=== PATIENT | male | born 1975 | race Caucasian/White ===

== ENCOUNTER → 2018-01-12 19:53 | Outpatient (CLI) | payer OTHER, SELFPAY | PROVIDERS: Visit Provider Student in an Organized Health Care Education/Training Program | DX: G47.10 Hypersomnia, unspecified (principal); R06.83 Snoring; R06.00 Dyspnea, unspecified; R53.83 Other fatigue | CPT/HCPCS: 95810 ==

== ENCOUNTER 2018-03-25 20:57 | Emergency (ER) | payer OTHER, SELFPAY ==
[2018-03-25 20:58] VITALS: BP 156/84; PULSE 81; RESP 20; TEMP 36.4; O2SAT 82; BMI 33.8
--- NOTE | 2018-03-25 21:30 | CM.ED ---
SOCIAL WORK NOTE PT PRESENTS TO ED WITH SUICIDAL IDEATION WITH PLAN TO DRIVE CAR INTO ONCOMING TRAFFIC. DR. BELTRE MET WITH PT. PER DR. BELTRE PT WILL NEED CRISIS EVALUATION. 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
--- NOTE | 2018-03-25 21:33 | ED.DCSUM_ITS ---
- ER Visit Summary Date of Service: 03/25/18 Chief Complaint: Suicidal thoughts with plan History of Present Illness: The patient is a 42 M presents to the emergency department with suicidal ideation. The patient has a history of PTSD. He is currently in the intensive outpatient program through [facility], [place], operated by [facility]. He states that he has been having trouble at work because of his stress disorder. He has been in the intensive outpatient program for 2 weeks now. He is on Prozac, Seroquel, and Valium. He states prior to leaving, he did have a demotion at work. Today was the first day that he got his diminished paycheck. He states it was significantly stressful. He has to care for 6 children and his . He states that this along with all of his life stressors got him to the point where he wants to kill himself. He states he wants to drive his car into oncoming traffic. He is never been hospitalized for suicidality in the past. Physical Examination: Vital signs reviewed General: Well-nourished, well-developed Head: Normocephalic, atraumatic Eyes: Pupils equal and reactive, extraocular muscles intact Neck, supple, no lymphadenopathy Heart: Regular rate and rhythm Respiratory: No distress, clear bilaterally Abdomen: Soft, nontender, nondistended, no peritoneal signs Back: Nontender Extremities: Nontender, no edema, no cords Skin: Normal color no rash Neuro: Alert and oriented, no focal or lateralizing deficits Test Results: [] Emergency Department Course and Treatment: The patient presents with increased suicidal thoughts despite intensive outpatient therapy. He does have plan. Screening labs are obtained and are unremarkable. At this time, the patient is medically cleared for psychiatric evaluation. Treatment Plan: [] Disposition: Pending Impression: Suicidal ideation with plan This note was generated with [employer] dictation software. It may contain incorrect words, spelling, and punctuation that were not noted in review of the chart prior to signing ED Disposition - Plan for ED Patient: Referrals: Mike Harvey DO [Primary Care Provider] -
[2018-03-25] MEDS: LORazepam 1 MG Tablet 2 MG PO (21:36)
--- NOTE | 2018-03-25 21:42 | ED.RN ---
pt reports he already took nighttime medications.
[2018-03-25 21:51] LABS: Absolute Neutrophil Count 4.9 X10^3/uL (2.0-7.7); Basophil# 0.06 X10^3/uL; Basophil% 0.8 % (0-1); Eosinophil# 0.19 X10^3/uL; Eosinophils% 2.4 % (0-5); Hematocrit 50.5 % (40-54); Hemoglobin 16.4 g/dl (13.0-16.5); Lymphocyte % 28.8 % (19-41); Mean Corp Hgb Conc 32.5 g/gl (32-36); Mean Corpuscular Hgb 29.7 pg (27.0-32.0); Mean Corpuscular Volume 91.5 fL (80-94); Monocyte# 0.58 X10^3/uL; Monocyte% 7.3 % (0-10); Neutrophil # 4.85 X10^3/uL (2.7-7.7); Neutrophil % 60.6 % (47-70); Platelet Count 216 K/mm3 (150-450); RBC Distribution Width CV 13.4 % (11.6-14.6); RBC Distribution Width SD 44.3 fl (35.1-43.9); Red Blood Count 5.52 M/mm3 (4.6-6.2)
[2018-03-25 21:52] LABS: POSITIVE COUNT NO; POSITIVE DIFFERENTIAL NO; POSITIVE MORPHOLOGY NO
[2018-03-25 22:07] LABS: Anion Gap 8 (5-15); BUN 19 mg/dL (7-18); BUN/Creat Ratio 11.3 RATIO (10-20); Calcium,Total 8.7 mg/dL (8.5-10.1); Chloride 105 mmol/L (98-107); Creatinine, Serum 1.68 mg/dL (0.70-1.30); EST Glomerular Filtration Rate 48 mL/min (>60); Est Glom Filt Rate - Afr Amer 58 mL/min (>60); Estimated Creatinine Clearance 67.28 ml/min; Glucose 97 mg/dL (74-106); Sodium Level 140 mmol/L (136-145)
[2018-03-25 22:20] LABS: Alcohol, Blood (Medical)-Serum < 3.0 mg/dL
[2018-03-25 22:38] VITALS: PULSE 74; RESP 16; O2SAT 94
[2018-03-25 22:41] LABS: Amphetamine Urine VISTA NEGATIVE (<1000 ng/mL); Barbiturate Urine VISTA NEGATIVE (< 200 ng/mL); Benzodiazepine Urine VISTA POSITIVE (< 200 ng/mL); Cocaine Urine VISTA NEGATIVE (< 300 ng/mL); Ecstacy Urine VISTA NEGATIVE (< 500 ng/mL); Methadone Urine VISTA NEGATIVE (< 300 ng/mL); PCP Urine VISTA NEGATIVE (< 25 ng/mL); THC Urine VISTA NEGATIVE (< 50 ng/mL); Vista UDS pH Range 6
[2018-03-25 23:08] VITALS: RESP 12
[2018-03-26] VITALS (8 sets, daily range): BP systolic 106–126; BP diastolic 56–73; PULSE 64–102; RESP 13–16; O2SAT 94–96
--- NOTE | 2018-03-26 01:49 | EKG12_ITS ---
Test Reason : Blood Pressure : / mmHG Vent. Rate : 062 BPM Atrial Rate : 062 BPM P-R Int : 144 ms QRS Dur : 094 ms QT Int : 412 ms P-R-T Axes : 040 004 017 degrees QTc Int : 418 ms Normal sinus rhythm Normal ECG Confirmed by HONG VERDIN, NANDO ([id number]), supervising film or videotape editor FRANCISCA LAINEZ ([id number] on 03/29/2018 8:53:01 AM Referred By: REINA Confirmed By:NANDO PITTS MD
[2018-03-26 02:13] LABS: AST(SGOT) 28 U/L (15-37); Alanine Aminotransfer ALT/SGPT 33 U/L (16-61); Albumin, Serum 4.1 g/dL (3.2-5.0); Alkaline Phosphatase 84 U/L (45-117); Globulin 3.2 g/dL (2.2-4.2); Protein, Total 7.3 g/dL (6.4-8.2)
[2018-03-26 04:02] LABS: Bacteria 0 SEEN /hpf (None Seen); Red Blood Cells-Urine 0 SEEN /hpf (0-5); Squamous Epithelial Cells - UA 0 SEEN /hpf (0-5); White Blood Cells 0 SEEN /hpf (0-5)
[2018-03-26 04:11] LABS: Color, Urine Yellow (Yellow); Glucose, Dipstick Normal (Normal); Ketone-Dipstick Negative (Negative); Leukocyte Esterase-Dipstick Negative /ul (Negative); Nitrite-Dipstick Negative (Negative); Occult Blood-Urine Negative /ul (Negative); Protein-Dipstick Negative (Negative); Urine Bilirubin Dipstick Negative (Negative); Urine Clarity Clear (Clear); Urine Urobilinogen Normal (Normal)
[2018-03-26 04:18] LABS: Mucous, Urine 1+ /hpf (<or=2+)
[2018-03-26] MEDS: FLUoxetine 20 MG Capsule 40 MG PO (09:56)
--- NOTE | 2018-03-26 10:23 | NURSING ---
CALLED [facility] FOR [facility]SPORT
--- NOTE | 2018-03-26 10:35 | NURSING ---
CALLED [facility], ETA IS 20 MIN CANCELLED PICHARDO
== END 2018-03-26 11:10 | disposition short-term general hospital (02) ==
LOC: ED 21:41
PROVIDERS: Emergency Medicine; Emergency Provider Emergency Medicine; Family Provider Student in an Organized Health Care Education/Training Program; PCP Student in an Organized Health Care Education/Training Program
DX: R45.851 Suicidal ideations (principal); F31.9 Bipolar disorder, unspecified; F43.10 Post-traumatic stress disorder, unspecified
CPT/HCPCS: 80048; 80076; 80307; 80320; 81001; 85025; 93005; 99284; G0480

== ENCOUNTER 2019-04-03 19:31 | Emergency (ER) | payer OTHER, SELFPAY ==
[2019-04-03 19:32] VITALS: BP 155/106; PULSE 95; RESP 16; TEMP 36.7; O2SAT 98; BMI 34.0
--- NOTE | 2019-04-03 20:05 | EKG12_ITS ---
Test Reason : CP Blood Pressure : / mmHG Vent. Rate : 091 BPM Atrial Rate : 091 BPM P-R Int : 136 ms QRS Dur : 088 ms QT Int : 344 ms P-R-T Axes : 053 014 040 degrees QTc Int : 423 ms Normal sinus rhythm Normal ECG Confirmed by KIM VERDIN, CELINE ([id number]), general expeditor ELIJAH RICHEY ([id number]) on 04/05/2019 1:53:21 PM Referred By: MOHAN Confirmed By:CELINE ALVAREZ MD
--- NOTE | 2019-04-03 20:10 | RAD_ITS ---
STUDY: X-RAY CHEST REASON FOR EXAM: Male, 43 years old. numbness in arms, racing heart, sweaty, short of breath TECHNIQUE: Numbness in arms COMPARISON: None. FINDINGS: The lungs are clear and expanded. There is no demonstrated pleural abnormality. Normal size heart. Normal mediastinum and raúl. Normal visualized pulmonary arteries. Normal visualized aortic arch and descending thoracic aorta. Normal visualized thoracic spine. Normal visualized ribs, clavicles, and shoulders. There is no demonstrated abnormality of the visualized soft tissue structures of the upper abdomen. RAD/Chest 1 View (Portable) IMPRESSION: Normal x-ray examination of the chest. Electronically Signed: Lobo Alvarado, at 20:34 EST Tel , Service support ,
[2019-04-03 20:22] VITALS: O2SAT 97
[2019-04-03] MEDS: Aspirin 81 MG TAB.CHEW 324 MG PO (20:38)
[2019-04-03 20:49] LABS: Absolute Lymphocyte Count 2.14 X10^3/uL (0.83-4.51); Absolute Neutrophil Count 3.6 X10^3/uL (2.0-7.7); Basophil# 0.09 X10^3/uL; Basophil% 1.4 % (0-1); Eosinophil# 0.15 X10^3/uL; Eosinophils% 2.3 % (0-5); Hematocrit 47.2 % (40-54); Hemoglobin 15.6 g/dL (13.0-16.5); Lymphocyte # 2.14 X10^3/ul (4.0); Lymphocyte % 32.5 % (19-41); Mean Corp Hgb Conc 33.1 g/dL (32-36); Mean Corpuscular Hgb 29.2 pg (27.0-32.0); Mean Corpuscular Volume 88.4 fL (80-94); Mean Platelet Vol. 10.4 fl (6.2-12.0); Monocyte# 0.62 X10^3/uL; Monocyte% 9.4 % (0-10); NRBC Flagged by Analyzer 0 % (0-5); Neutrophil # 3.56 X10^3/uL (2.7-7.7); Neutrophil % 54.1 % (47-70); Platelet Count 250 K/mm3 (150-450); RBC Distribution Width SD 41.7 fl (35.1-43.9); Red Blood Count 5.34 M/mm3 (4.6-6.2); White Blood Count 6.6 K/mm3 (4.4-11.0)
[2019-04-03 21:05] LABS: Anion Gap 7 (5-15); BUN 14 mg/dL (7-18); BUN/Creat Ratio 10.8 RATIO (10-20); Calcium,Total 9.4 mg/dL (8.5-10.1); Chloride 107 mmol/L (98-107); EST Glomerular Filtration Rate 64 mL/min (>60); Est Glom Filt Rate - Afr Amer 78 mL/min (>60); Estimated Creatinine Clearance 86.06 ml/min; Glucose 100 mg/dL (74-106); Potassium 3.8 mmol/L (3.5-5.1); Sodium Level 141 mmol/L (136-145)
[2019-04-03 22:08] VITALS: BP 125/79; PULSE 77; RESP 20; O2SAT 94
--- NOTE | 2019-04-04 00:10 | ED.DCSUM_ITS ---
- ER Visit Summary Date of Service: 04/04/19 Chief Complaint: Chest pain History of Present Illness: The patient is a 43 M who presents with chest pain that began today. Patient states the pain began proximately 6 hours prior to arrival. Patient states the pain waxes and wanes. Patient states the pain is somewhat sharp in his right upper arm. Patient states the pain then goes into his left upper arm. Patient states he does have some aching and tightness in his chest with this. Patient states this does come on with exertion and is improved with rest. Patient admits to nausea but denies any vomiting. Patient denies any cough or fevers. Patient does admit to some palpitations with this and some shortness of breath. Physical Examination: Vital signs are stable. Patient is afebrile. Patient is in no acute distress. Oral mucosa is pink and moist. Neck is supple. Trachea is midline. There is no JVD noted. Heart was regular rate and rhythm. Lungs are clear and equal bilaterally. Abdomen is soft. Bowel sounds are normal. There is no tenderness. There is no rebound or guarding noted. Skin is warm dry. Cranial nerves II through XII are intact. There are no focal motor or sensory deficits noted. Extremities are intact. There is no calf tenderness or edema. Test Results: EKG shows normal sinus rhythm with a rate of 91. There are no acute ST or T wave changes. This was unchanged compared to previous EKG dated 03/26/2018. CBC, basic metabolic profile, and troponin were obtained were all within normal limits. Portable chest x-ray was obtained. There is no acute cardiopulmonary process. This was interpreted by the radiologist and reviewed by myself. Emergency Department Course and Treatment: Patient was given aspirin. Patient was pain-free on my examination. Patient has a HEART score of 2 and a DENISHA risk score of 1. Patient was advised that this is low risk for acute cardiac event. Patient is agreeable to stay for a delta troponin. This was obtained and was normal. Patient was advised that his risk for acute cardiac event is less than 1%. Patient was instructed to follow-up with his primary care physician in 5 to 7 days for further evaluation. Patient understands and is agreeable with the plan. All questions were answered. Disposition: Discharge home Impression: Chest pain This note was generated with [employer] software. It may contain incorrect words, spelling, and punctuation that were not noted in review of the chart prior to signing ED Disposition - Plan for ED Patient: Disposition: Home or Assisted Living Diagnosis: Chest pain of uncertain etiology Instructions: CHEST PAIN, Uncertain Cause Referrals: Mike Harvey DO [Primary Care Provider] - 5-7 Days
[2019-04-04 00:56] VITALS: BP 128/82; PULSE 82; RESP 19; O2SAT 94
== END 2019-04-04 00:56 | disposition home or self-care (01) ==
PROVIDERS: Emergency Provider Emergency Medicine; PCP Student in an Organized Health Care Education/Training Program
DX: R07.9 Chest pain, unspecified (principal); F43.10 Post-traumatic stress disorder, unspecified; Z79.899 Other long term (current) drug therapy
CPT/HCPCS: 36415; 71045; 80048; 84484; 85025; 93005; 99284; A4216

== ENCOUNTER → 2020-06-12 14:36 | Outpatient (CLI) | payer OTHER, SELFPAY ==
--- NOTE | 2020-06-12 14:39 | US_ITS ---
STUDY: THYROID ULTRASOUND REASON FOR EXAM: Male, 44 years old. GOITER TECHNIQUE: Ultrasound evaluation of the thyroid was performed with real-time and static barbosa-scale imaging. COMPARISON: None. FINDINGS: RIGHT LOBE: The right lobe of the thyroid gland measures 5.4 x 1.8 x 2.1 cm. There is a heterogeneous echotexture. Nodule 1:14 x 12 x 11 mm solid isoechoic wider than tall ill-defined marginated nodule with no echogenic foci (TR 3) in the posterior right lobe consistent with an adenoma. LEFT LOBE: The left lobe of the thyroid gland measures 5.7 x 1.8 x 1.1 cm. There is a homogeneous echotexture. Nodule 2:8 x 2 x 5 mm solid hypoechoic wider than tall ill-defined marginated nodule with no echogenic foci (TR 4) in the anterior left lobe consistent with a tiny adenoma. ISTHMUS: The isthmus measures 7 mm thick. . The regional lymph nodes are normal. US/Thyroid IMPRESSION: Thyroiditis with multiple small adenomas. Electronically Signed: Brice Montiel MD at 16:06 EDT Tel , Service support ,
== END ==
DX: E04.9 Nontoxic goiter, unspecified (principal)
CPT/HCPCS: 76536

== ENCOUNTER → 2020-12-18 18:11 | Outpatient (CLI) | payer OTHER, SELFPAY ==
--- NOTE | 2020-12-18 18:26 | RAD_ITS ---
STUDY: X-RAY CHEST REASON FOR EXAM: Male, 45 years old. COVID TECHNIQUE: Frontal and lateral views of the chest COMPARISON: 03 April 2019 FINDINGS: There are multifocal segmental pulmonary densities. There is no pneumothorax, pulmonary edema or pleural effusions. RAD/Chest PA and Lateral IMPRESSION: Bilateral multifocal pneumonia. Electronically Signed: Diana Rich MD at 19:24 EST Tel , Service support ,
== END ==
PROVIDERS: Visit Provider Internal Medicine Pulmonary Disease
DX: U07.1 COVID-19 (principal)
CPT/HCPCS: 71046

== ENCOUNTER 2020-12-19 10:11 | Inpatient (IN) | payer OTHER, SELFPAY ==
[2020-12-19] VITALS (25 sets, daily range): BP systolic 115–157; BP diastolic 72–95; PULSE 70–113; RESP 14–26; TEMP 36.4–37.3; O2SAT 83–97; BMI 35.3; BMI 36.7
--- NOTE | 2020-12-19 10:43 | EKG12_ITS ---
Test Reason : SOB Blood Pressure : / mmHG Vent. Rate : 087 BPM Atrial Rate : 087 BPM P-R Int : 138 ms QRS Dur : 082 ms QT Int : 380 ms P-R-T Axes : 043 -04 -09 degrees QTc Int : 457 ms Normal sinus rhythm Nonspecific T wave abnormality Abnormal ECG Confirmed by KIM VERDIN, CELINE ([id number]), technical editor ELIJAH RICHEY ([id number]) on 12/23/2020 10:23:26 AM Referred By: MOHAN Confirmed By:CELINE ALVAREZ MD
--- NOTE | 2020-12-19 10:46 | CT_ITS ---
STUDY: CTA CHEST REASON FOR EXAM: Male, 45 years old. Dyspnea RADIATION DOSAGE (If Supplied By Facility): CTDIvol = ( 12.67 ) mGy, DLP = ( 582.99 ) mGycm TECHNIQUE: The examination was performed with the intravenous administration of IV 100mL Isovue-370. Post-processing of the angiographic images was performed, with multiplanar reformation and 3D reconstruction. Individualized dose optimization techniques were used for this CT. COMPARISON: Comparison is made with prior chest radiograph dated 12/18/2020. FINDINGS: Normal enhancement of the main pulmonary artery and right and left pulmonary arteries. Normal enhancement of the bilateral peripheral pulmonary arteries. There is no demonstrated pulmonary embolism. Normal thoracic aorta and visualized great vessels. There is no demonstrated aortic dissection. Normal heart and pericardium. There are visualized mediastinal lymph nodes, which are within normal size limits, and with normal morphology. Calcified lower mediastinal lymph nodes. Normal hilar regions. Normal visualized trachea and bronchi. The lungs are well expanded. Diffuse bilateral airspace disease involving both upper and lower lobes bilaterally. Pneumonitis secondary to Covid should be ruled out. Normal pleura. Normal chest wall structures. Normal osseous structures. Small hiatal hernia. CT/CTA Chest W/WO Contrast IMPRESSION: Extensive bilateral airspace disease worse in the right hemithorax. Pneumonitis secondary to Covid should be ruled out Electronically Signed: Hiro Pope MD at 12:30 EST , Service support ,
[2020-12-19 11:00] LABS: Absolute Lymphocyte Count 0.81 X10^3/uL (0.83-4.51); Absolute Neutrophil Count 3.7 X10^3/uL (2.0-7.7); Basophil# 0.02 X10^3/uL; Basophil% 0.4 % (0-1); Hematocrit 47.6 % (40-54); Lymphocyte # 0.81 X10^3/ul (0.83-4.51); Lymphocyte % 16.5 % (19-41); Mean Corp Hgb Conc 33.6 g/dL (32-36); Mean Corpuscular Hgb 28.9 pg (27.0-32.0); Mean Corpuscular Volume 85.9 fL (80-94); Mean Platelet Vol. 10.6 fl (6.2-12.0); Monocyte% 8.1 % (0-10); NRBC Flagged by Analyzer 0 % (0-5); Neutrophil # 3.67 X10^3/uL (2.7-7.7); Neutrophil % 74.6 % (47-70); POSITIVE MORPHOLOGY YES; Platelet Count 233 K/mm3 (150-450); RBC Distribution Width CV 12.7 % (11.6-14.6); RBC Distribution Width SD 40.4 fl (35.1-43.9); Red Blood Count 5.54 M/mm3 (4.6-6.2); White Blood Count 4.9 K/mm3 (4.4-11.0)
[2020-12-19 11:01] LABS: Differential Indicated SCAN CRITERIA MET
[2020-12-19 11:21] LABS: ALB/GLOB Ratio 0.6 RATIO (0.9-2.4); AST(SGOT) 56 U/L (15-37); Alanine Aminotransfer ALT/SGPT 48 U/L (16-61); Albumin, Serum 2.8 g/dL (3.2-5.0); Alkaline Phosphatase 104 U/L (45-117); Anion Gap 9 (5-15); BUN 11 mg/dL (7-18); BUN/Creat Ratio 9.8 RATIO (10-20); Calcium,Total 8.8 mg/dL (8.5-10.1); Chloride 101 mmol/L (98-107); Creatinine, Serum 1.12 mg/dL (0.70-1.30); EST Glomerular Filtration Rate 76 mL/min (>60); Est Glom Filt Rate - Afr Amer 92 mL/min (>60); Estimated Creatinine Clearance 97.86 ml/min; Globulin 4.7 g/dL (2.2-4.2); Glucose 148 mg/dL (74-106); Potassium 3.7 mmol/L (3.5-5.1); Protein, Total 7.5 g/dL (6.4-8.2); Sodium Level 139 mmol/L (136-145); Troponin-I HS 8 pg/mL (3.0-78.0)
--- NOTE | 2020-12-19 11:21 | EDS_ITS ---
HPI History of Present Illness Chief Complaint: Shortness of Breath Informant: patient Onset/Context/Timing Onset: Weeks (1) Context: gradual Timing: Continuous Quality: Positive for Dyspnea on exertion Worsened by: Exertion Relieved by: - (Laying in the prone position) Associated Symptoms cough; Negative for rhinorrhea, ear pain, fever, sore throat, chills, clear sputum, white sputum, yellow sputum or green sputum Chest Pain: Positive for None Narrative Narrative: Patient presents with shortness of breath that has been getting worse over the past week. Patient was diagnosed with COVID-19 approximately 2 weeks ago. 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 Patient had an outpatient chest x-ray done yesterday which showed residual pneumonia. Patient was started on antibiotics, steroids, and oxygen last night. Patient admits to a cough with some sputum production. Patient does not know what color it is. Patient states his breathing got better when he was laying in the prone position. Patient states his breathing is worse with activities. [facility] Medical History COVID-19 Home Medications diazepam [Valium] 10 - 20 mg PO BID PRN 03/25/18 [History Last Taken Unknown] cholecalciferol (vitamin D3) 5,000 unit PO 04/03/19 [History Last Taken Unknown] lurasidone 60 mg PO DAILY 04/03/19 [History Last Taken Unknown] magnesium oxide 400 mg PO DAILY 04/03/19 [History Last Taken Unknown] mirtazapine 30 mg PO QHS 04/03/19 [History Last Taken Unknown] omeprazole 40 mg PO DAILY 04/03/19 [History Last Taken Unknown] sertraline 200 mg PO DAILY 04/03/19 [History Last Taken Unknown] sildenafil 100 mg PO PRN PRN 04/03/19 [History Last Taken Unknown] terbinafine HCl 250 mg PO DAILY 04/03/19 [History Last Taken Unknown] Allergy/AdvReac Type Severity Reaction Status Date / Time No Known Allergies Allergy Verified 03/25/18 20:58 Social History Smoking Status: Former smoker ROS ROS ED Constitutional Constitutional ED: Denies chills or fever(s) Eyes Eyes: Denies blurry vision or change in vision ENT ENT ED: Denies rhinorrhea or sore throat Cardiovascular Cardiovascular: Denies chest pain or palpitations Respiratory/Chest Respiratory/Chest: Reports cough and dyspnea Gastrointestinal Gastrointestinal: Denies nausea or vomiting Genitourinary Genitourinary ED: Denies dysuria or hematuria Musculoskeletal Musculoskeletal: Reports back pain; Denies neck pain Integumentary Denies abscess or rash Neurologic Neurologic: Denies headache(s) or weakness Allergic/Immunologic Allergic/Immunologic ED: Denies mouth swelling or urticaria EXAM Physical Exam Const Vital Signs: 12/19/20 10:13 12/19/20 10:16 12/19/20 10:34 Temperature 97.5 F L 97.5 F L 98 F Temperature Source Temporal Temporal Temporal Pulse Rate 84 84 90 Respiratory Rate 26 H 26 H 20 H Respiratory Effort Short of Breath Respiratory Pattern Tachypnea Blood Pressure 157/74 H 157/74 H 134/78 H Blood Pressure Mean 101 101 96 Pulse Ox 83 83 92 Oxygen Delivery Method Nasal Cannula High Flow High Flow Oxygen Flow Rate (L/min) 5 5 15 12/19/20 11:19 12/19/20 11:34 12/19/20 12:00 Temperature 98.6 F 98.6 F Temperature Source Temporal Temporal Pulse Rate 70 100 100 Respiratory Rate 21 H 22 H 22 H Respiratory Effort Respiratory Pattern Tachypnea Blood Pressure 139/82 H 142/89 H Blood Pressure Mean 101 106 Pulse Ox 90 91 Oxygen Delivery Method High Flow High Flow Oxygen Flow Rate (L/min) 12/19/20 13:00 12/19/20 13:21 Temperature 98.2 F 98.2 F Temperature Source Temporal Temporal Pulse Rate 100 100 Respiratory Rate 18 20 H Respiratory Effort Respiratory Pattern Blood Pressure 155/82 H 155/82 H Blood Pressure Mean 106 106 Pulse Ox 95 95 Oxygen Delivery Method High Flow High Flow Oxygen Flow Rate (L/min) Positive well nourished and well developed General Appearance ED: well developed HEENT Reports moist mucous membranes Neck supple and no JVD Resp normal respiratory effort Auscultation: diminished lung sounds diffuse Cardio regular rate, regular rhythm and no murmurs GI normal to inspection, nondistended, normoactive bowel sounds and non-tender Palpation: soft Extremity normal to inspection General Extremety ED: Negative for edema or tenderness General Extremity: Negative for edema Neuro oriented x3, CN's II-XII intact bilaterally and no sensory deficits noted Sensorium / Orientation: alert Motor Exam: strength 5/5 throughout Psych mental status grossly normal Skin no rashes or lesions noted MDM MDM MDM Narrative Medical decision making narrative: EKG was obtained. On my interpretation, it showed a normal sinus rhythm with a rate of 87. MA interval, QRS interval, and QTc intervals were all normal. [place] was normal. There are nonspecific ST-T wave changes. CBC and comprehensive metabolic profile were within normal limits. Lactate was normal. CTA of the chest was obtained. There is no evidence of pulmonary embolism. There is extensive bilateral airspace disease, worse in the right. This was interpreted by the radiologist and reviewed by myself. COVID-19 PCR test was obtained and is positive. Patient was given a dose of Decadron here. Patient was also given a dose of Rocephin and Zithromax. Case was discussed with the hospitalist. She will admit the patient to her service. Patient understood and was agreeable with the plan. All questions were answered. Lab Data Attestation: I reviewed the patient's lab results. Labs: Laboratory Results - last 24 hr 12/19/20 12/19/20 12/19/20 10:44 10:44 10:44 WBC 4.9 RBC 5.54 Hgb 16.0 Hct 47.6 MCV 85.9 MCH 28.9 MCHC 33.6 RDW Std Deviation 40.4 RDW Coeff of Damien 12.7 Plt Count 233 MPV 10.6 Immature Gran % (Auto) 0.400 Neut % (Auto) 74.6 H Lymph % (Auto) 16.5 L [place] % (Auto) 8.1 Eos % (Auto) 0.0 Baso % (Auto) 0.4 Absolute Neuts (auto) 3.7 Absolute Lymphs (auto) 0.81 L Nucleated RBC % 0 Sodium 139 Potassium 3.7 Chloride 101 Carbon Dioxide 29.0 Anion Gap 9 BUN 11 Creatinine 1.12 Estim Creat Clear Calc 97.86 Est GFR (MDRD) Af Amer 92 Est GFR (MDRD) Non-Af 76 BUN/Creatinine Ratio 9.8 L Glucose 148 H Lactic Acid 1.6 Calcium 8.8 Total Bilirubin 0.60 AST 56 H ALT 48 Alkaline Phosphatase 104 Troponin I High Sens 8 Total Protein 7.5 Albumin 2.8 L Globulin 4.7 H Albumin/Globulin Ratio 0.6 L COVID-19 (DREW) 12/19/20 11:05 WBC RBC Hgb Hct MCV MCH MCHC RDW Std Deviation RDW Coeff of Damien Plt Count MPV Immature Gran % (Auto) Neut % (Auto) Lymph % (Auto) [place] % (Auto) Eos % (Auto) Baso % (Auto) Absolute Neuts (auto) Absolute Lymphs (auto) Nucleated RBC % Sodium Potassium Chloride Carbon Dioxide Anion Gap BUN Creatinine Estim Creat Clear Calc Est GFR (MDRD) Af Amer Est GFR (MDRD) Non-Af BUN/Creatinine Ratio Glucose Lactic Acid Calcium Total Bilirubin AST ALT Alkaline Phosphatase Troponin I High Sens Total Protein Albumin Globulin Albumin/Globulin Ratio COVID-19 (DREW) Detected Radiography Diagnostic Testing: Clinical Impression(s) from Imaging Studies Chest CTA 12/19/20 10:46 IMPRESSION: Extensive bilateral airspace disease worse in the right hemithorax. Pneumonitis secondary to Covid should be ruled out Electronically Signed: Hiro Pope MD at 12:30 EST , Service support , EKG Initial EKG: Attestation: I personally reviewed and interpreted this EKG as follows: Interpretation: Sinus Rhythm (87) and Non-Specific ST Changes Treatment and Re-Evaluation Vital Sign Attestation:: Vital signs were reviewed prior to admission. There is still mild tachypnea of 20 but they have improved and are stable. Discharge Plan Dx/Rx/DC Orders Clinical Impression: Pneumonia due to COVID-19 virus, Hypoxia Disposition Disposition: Acute Care Hospital [facility]
[2020-12-19 11:27] LABS: Lactic Acid 1.6 mmol/L (0.4-1.9)
[2020-12-19] MEDS: Ceftriaxone 1 GM/50 ML BAG IV (11:32)
[2020-12-19] MEDS: Acetaminophen 500 MG Tablet 1000 MG PO (12:17)
--- NOTE | 2020-12-19 12:50 | PCM.HP.STD ---
HPI - General General Date of Admission: 12/19/20 Date of Service: 12/19/20 Chief Complaint: Progressive SOB - 15 days HPI Narrative WILMA AVILA, is a 45 M who presents with the above ongoing for about 15 days. Patient has history of PTSD/schizophrenia from his time in the [employer]. His initially got ill and then he got ill 2. He has been progressively short of breath, his pulse ox is in the 70s. He came to the hospital on an insistence of Dr. Nagel. He is unvaccinated At the time of being seen, patient states that he feels fairly okay. Denies any fever chills or loss of smell or taste. Denies any diarrhea. In the ED, he was on 15 L of oxygen. His admitting blood work was unremarkable. CTA of the chest shows extensive bilateral airspace disease, worse in the right hemithorax. His COVID-19 PCR is positive. [facility] Medical History (Updated 12/19/20 @ 15:[address] Coby Soliman MD) Anxiety Bipolar disorder Chronic pain COVID-19 CPAP (continuous positive airway pressure) dependence Depression Former smoker Hearing loss, left Hearing loss, right History of pilonidal cyst Migraines Sleep apnea Vision loss of left eye Vision loss of right eye Wears hearing aid in both ears Home Medications lurasidone 60 mg PO DAILY 04/03/19 [History Last Taken 2 Weeks Ago ~12/05/20] sertraline 200 mg PO DAILY 04/03/19 [History Last Taken 2 Weeks Ago ~12/05/20] bupropion HCl 300 mg PO DAILY 12/19/20 [History Last Taken 2 Weeks Ago ~12/05/20] dexamethasone 6 mg PO DAILY 12/19/20 [History Last Taken 12/19/20] ergocalciferol (vitamin D2) 1,250 mcg PO QMONTH 12/19/20 [History Last Taken 12/09/20] ibuprofen 800 mg PO BID PRN 12/19/20 [History Last Taken 4 Days Ago ~12/15/20] magnesium oxide 450 mg PO DAILY 12/19/20 [History Last Taken 12/19/20] pravastatin 20 mg PO QHS 12/19/20 [History Last Taken 1 Week Ago ~12/12/20] prazosin 8 mg PO QHS 12/19/20 [History Last Taken 2 Weeks Ago ~12/05/20] riboflavin (vitamin B2) [Vitamin B-2] 100 mg PO DAILY 12/19/20 [History Last Taken 12/19/20] rizatriptan 10 mg PO DAILY PRN 12/19/20 [History Last Taken 2 Weeks Ago ~12/05/20] Allergy/AdvReac Type Severity Reaction Status Date / Time No Known Allergies Allergy Verified 03/25/18 20:58 Family History (Updated 12/19/20 @ 15:[address] Coby Soliman MD) Mother No problems noted. Father Colon cancer Surgical History (Updated 12/19/20 @ 15:[address] Coby Soliman MD) History of back surgery Social History (Updated 12/19/20 @ 15:[address] Coby Soliman MD) household members: spouse Smoking Status: Former smoker alcohol intake: current alcohol intake frequency: a few times a week substance use type: does not use ROS ROS Narrative Constitutional: Reports: Malaise, Weakness, Fatigue. Denies: Anorexia, Chills, Fever, Night Sweats, Weight Change Eyes: Denies: Blurred vision, Cataracts, Conjunctivae Inflammation, Pain, Redness, Vision Change HEENT: Denies: Difficulty Hearing, Difficulty Swallowing, Head Aches, Hearing Changes, Sinus Congestion, Sinus Drainage Cardiovascular: Denies: Chest Pain, Orthopnea, Palpitations Respiratory: Denies: Cough, Shortness of breath at rest, Sputum production Gastrointestinal: Denies: Abdominal Pain, Nausea, Vomiting Genitourinary: Denies: Dysuria Musculoskeletal: Denies: Joint Pain, Joint stiffness, Joint swelling, Joint Tenderness Skin: Denies: Rash, Wounds Neurological: Denies: Numbness, Tingling, Focal weakness Vital Signs Vital Signs Vital Signs: 12/19/20 10:13 12/19/20 10:16 12/19/20 10:34 Temperature 97.5 F L 97.5 F L 98 F Temperature Source Temporal Temporal Temporal Pulse Rate 84 84 90 Respiratory Rate 26 H 26 H 20 H Respiratory Effort Short of Breath Respiratory Pattern Tachypnea Blood Pressure 157/74 H 157/74 H 134/78 H Blood Pressure Mean 101 101 96 Pulse Ox 83 83 92 Oxygen Delivery Method Nasal Cannula High Flow High Flow Oxygen Flow Rate (L/min) 5 5 15 12/19/20 11:19 12/19/20 11:34 12/19/20 12:00 Temperature 98.6 F 98.6 F Temperature Source Temporal Temporal Pulse Rate 70 100 100 Respiratory Rate 21 H 22 H 22 H Respiratory Effort Respiratory Pattern Tachypnea Blood Pressure 139/82 H 142/89 H Blood Pressure Mean 101 106 Pulse Ox 90 91 Oxygen Delivery Method High Flow High Flow Oxygen Flow Rate (L/min) Weight Weight: 124.738 kg Body Mass Index (BMI) 35.3 Physical Exam Narrative Physical exam: General: Alert, Oriented x3, Cooperative, No apparent distress, Well developed, obese, on 15 L of oxygen HEENT: Atraumatic Oral: Moist Mucosa Neck: Supple Lungs: Diminished to auscultation Cardiovascular: HS I+II, regular, no murmurs Abdomen: Bowel Sounds Present, Soft, Non Tender Extremities: No edema Results Lab / Micro Data Result Diagrams: 12/19/20 10:44 12/19/20 10:44 Labs: Laboratory Results - last 24 hr 12/19/20 10:44: WBC 4.9, RBC 5.54, Hgb 16.0, Hct 47.6, MCV 85.9, MCH 28.9, MCHC 33.6, RDW Std Deviation 40.4, RDW Coeff of Damien 12.7, Plt Count 233, MPV 10.6, Immature Gran % (Auto) 0.400, Neut % (Auto) 74.6 H, Lymph % (Auto) 16.5 L, [place] % (Auto) 8.1, Eos % (Auto) 0.0, Baso % (Auto) 0.4, Absolute Neuts (auto) 3.7, Absolute Lymphs (auto) 0.81 L, Nucleated RBC % 0 12/19/20 10:44: Sodium 139, Potassium 3.7, Chloride 101, Carbon Dioxide 29.0, Anion Gap 9, BUN 11, Creatinine 1.12, Estim Creat Clear Calc 97.86, Est GFR (MDRD) Af Amer 92, Est GFR (MDRD) Non-Af 76, BUN/Creatinine Ratio 9.8 L, Glucose 148 H, Calcium 8.8, Total Bilirubin 0.60, AST 56 H, ALT 48, Alkaline Phosphatase 104, Troponin I High Sens 8, Total Protein 7.5, Albumin 2.8 L, Globulin 4.7 H, Albumin/Globulin Ratio 0.6 L 11/11/21 10:44: Lactic Acid 1.6 Radiology Impression Chest CTA 12/19/20 10:46 IMPRESSION: Extensive bilateral airspace disease worse in the right hemithorax. Pneumonitis secondary to Covid should be ruled out Electronically Signed: Hiro Pope MD at 12:30 EST , Service support , Assessment & Plan Assessment/Plan (1) Pneumonia due to COVID-19 virus: (2) Acute respiratory failure with hypoxia: PLAN: 1. Acute hypoxic respiratory failure secondary to acute COVID-19 pneumonia Patient is unvaccinated Symptoms started about 15 days ago Currently on air Vo Chest x-ray and CT of the chest shows extensive disease; acute PE ruled out Continue on IV dexamethasone, Check sputum culture, blood cultures, urine Legionella and streptococcal antigen Continue IV ceftriaxone, azithromycin, albuterol inhaler Pulmonology consult?Dr. Nagel 2. PTSD/schizophrenia, not in acute exacerbation, continue home medications 3. DVT prophylaxis on Lovenox Charges/Coding Visit Charges Inpatient E&M: 87598 Init Hosp L3
[2020-12-19] MEDS: dexAMETHasone 4 MG/ML Vial 6 MG IV (13:17)
[2020-12-19 18:46] LABS: Procalcitonin 0.05 ng/mL (0.00-0.09)
[2020-12-19] MEDS: Enoxaparin 40 MG/0.4 ML Syringe SC (20:31)
[2020-12-19] MEDS: Doxazosin 4 MG Tablet 6 MG PO (20:31)
[2020-12-19] MEDS: Pravastatin 20 MG Tablet PO (20:32)
[2020-12-19] MEDS: MELATONIN 3 MG TABLET PO (21:17)
[2020-12-19] MEDS: Acetaminophen 325 MG Tablet 650 MG PO (21:17)
[2020-12-20] VITALS (36 sets, daily range): BP systolic 89–142; BP diastolic 50–86; PULSE 70–105; RESP 14–94; TEMP 36.8–37.2; O2SAT 90–98
[2020-12-20 03:05] LABS: Absolute Lymphocyte Count 1.31 X10^3/uL (0.83-4.51); Absolute Neutrophil Count 4.1 X10^3/uL (2.0-7.7); Basophil# 0.02 X10^3/uL; Basophil% 0.3 % (0-1); Eosinophil# 0.15 X10^3/uL; Eosinophils% 2.4 % (0-5); Hematocrit 44.1 % (40-54); Hemoglobin 14.4 g/dL (13.0-16.5); Lymphocyte # 1.31 X10^3/ul (0.83-4.51); Lymphocyte % 20.7 % (19-41); Mean Corp Hgb Conc 32.7 g/dL (32-36); Mean Corpuscular Hgb 28.3 pg (27.0-32.0); Mean Corpuscular Volume 86.8 fL (80-94); Mean Platelet Vol. 10.4 fl (6.2-12.0); Monocyte# 0.65 X10^3/uL; Monocyte% 10.3 % (0-10); NRBC Flagged by Analyzer 0 % (0-5); Neutrophil # 4.13 X10^3/uL (2.7-7.7); Neutrophil % 65.4 % (47-70); POSITIVE MORPHOLOGY YES; Platelet Count 254 K/mm3 (150-450); RBC Distribution Width CV 12.7 % (11.6-14.6); RBC Distribution Width SD 40.7 fl (35.1-43.9); Red Blood Count 5.08 M/mm3 (4.6-6.2); White Blood Count 6.3 K/mm3 (4.4-11.0)
[2020-12-20 03:09] LABS: Differential Indicated SCAN CRITERIA MET
[2020-12-20 03:22] LABS: ALB/GLOB Ratio 0.6 RATIO (0.9-2.4); AST(SGOT) 52 U/L (15-37); Alanine Aminotransfer ALT/SGPT 56 U/L (16-61); Albumin, Serum 2.6 g/dL (3.2-5.0); Alkaline Phosphatase 98 U/L (45-117); Anion Gap 9 (5-15); BUN 19 mg/dL (7-18); BUN/Creat Ratio 17.4 RATIO (10-20); Calcium,Total 8.5 mg/dL (8.5-10.1); Chloride 105 mmol/L (98-107); Creatinine, Serum 1.09 mg/dL (0.70-1.30); EST Glomerular Filtration Rate 78 mL/min (>60); Est Glom Filt Rate - Afr Amer 95 mL/min (>60); Estimated Creatinine Clearance 100.55 ml/min; Globulin 4.1 g/dL (2.2-4.2); Glucose 145 mg/dL (74-106); Potassium 3.9 mmol/L (3.5-5.1); Protein, Total 6.7 g/dL (6.4-8.2); Sodium Level 139 mmol/L (136-145)
[2020-12-20 03:23] LABS: Differential Comment SCANNED
[2020-12-20 03:25] LABS: Atypical Lymphocyte 1+ %
--- NOTE | 2020-12-20 07:20 | PN.HOSP_ITS ---
Subjective Subjective Follow-up on acute hypoxic respiratory failure/acute COVID-19 pneumonia: Patient was seen and examined. Overnight he was transition to air Vo. Remains on Airvo 60 L, 78% with BiPAP at night Objective Data Objective Data Vital Signs: Vital Signs Temp Pulse Resp BP Pulse Ox 98.7 F 85 17 122/75 H 92 12/20/20 04:00 12/20/20 07:06 12/20/20 07:06 12/20/20 07:00 12/20/20 07:06 Oxygen Flow Rate (L/min) 60 Oxygen Delivery Method Bi-pap Weight: 129.1 kg Body Mass Index (BMI) 36.7 Intake & Output: Intake and Output for Last 24 Hours 12/18/20 12/19/20 12/20/20 23:59 23:59 23:59 Intake Total 305 / 305 Output Total 600 / 600 525 / 525 Balance -295 / -295 -525 / -525 Lab / Micro Data Result Diagrams: 12/20/20 03:00 12/20/20 03:00 Labs: Laboratory Results - last 24 hr 12/19/20 10:44: WBC 4.9, RBC 5.54, Hgb 16.0, Hct 47.6, MCV 85.9, MCH 28.9, MCHC 33.6, RDW Std Deviation 40.4, RDW Coeff of Damien 12.7, Plt Count 233, MPV 10.6, Immature Gran % (Auto) 0.400, Neut % (Auto) 74.6 H, Lymph % (Auto) 16.5 L, [place] % (Auto) 8.1, Eos % (Auto) 0.0, Baso % (Auto) 0.4, Absolute Neuts (auto) 3.7, Absolute Lymphs (auto) 0.81 L, Nucleated RBC % 0 12/19/20 10:44: Sodium 139, Potassium 3.7, Chloride 101, Carbon Dioxide 29.0, Anion Gap 9, BUN 11, Creatinine 1.12, Estim Creat Clear Calc 97.86, Est GFR (MDRD) Af Amer 92, Est GFR (MDRD) Non-Af 76, BUN/Creatinine Ratio 9.8 L, Glucose 148 H, Calcium 8.8, Total Bilirubin 0.60, AST 56 H, ALT 48, Alkaline Phosphatase 104, Troponin I High Sens 8, Total Protein 7.5, Albumin 2.8 L, Globulin 4.7 H, Albumin/Globulin Ratio 0.6 L 12/19/20 10:44: Lactic Acid 1.6 12/19/20 10:44: C-React Prot Ext Range 127.00 H 12/19/20 11:05: COVID-19 (DREW) Detected 12/19/20 17:45: Procalcitonin 0.05 12/20/20 03:00: WBC 6.3, RBC 5.08, Hgb 14.4, Hct 44.1, MCV 86.8, MCH 28.3, MCHC 32.7, RDW Std Deviation 40.7, RDW Coeff of Damien 12.7, Plt Count 254, MPV 10.4, Immature Gran % (Auto) 0.900, Neut % (Auto) 65.4, Lymph % (Auto) 20.7, [place] % (Auto) 10.3 H, Eos % (Auto) 2.4, Baso % (Auto) 0.3, Absolute Neuts (auto) 4.1, Absolute Lymphs (auto) 1.31, Nucleated RBC % 0, Differential Comment SCANNED, Atypical Lymphocytes 1+ 12/20/20 03:00: Sodium 139, Potassium 3.9, Chloride 105, Carbon Dioxide 25.0, Anion Gap 9, BUN 19 H, Creatinine 1.09, Estim Creat Clear Calc 100.55, Est GFR (MDRD) Af Amer 95, Est GFR (MDRD) Non-Af 78, BUN/Creatinine Ratio 17.4, Glucose 145 H, Calcium 8.5, Total Bilirubin 0.40, AST 52 H, ALT 56, Alkaline Phosphatase 98, Total Protein 6.7, Albumin 2.6 L, Globulin 4.1, Albumin/Globulin Ratio 0.6 L Micro: Microbiology 12/19/20 19:00 Urine, Clean Catch Legionella Antigen - Final 12/19/20 19:00 Urine, Clean Catch Streptococcus pneumoniae Antigen (M - F inal 12/19/20 15:30 Mucosa - Nasopharyngeal Respiratory Panel (PCR) - Final Radiography Diagnostic Testing: Radiology Impression Chest CTA 12/19/20 10:46 IMPRESSION: Extensive bilateral airspace disease worse in the right hemithorax. Pneumonitis secondary to Covid should be ruled out Electronically Signed: Hiro Pope MD at 12:30 EST , Service support , Physical Exam Narrative Physical exam: General: Alert, Oriented x3, Cooperative, obese, in mild respiratory distress, on Airvo HEENT: Atraumatic Oral: Moist Mucosa Neck: Supple Lungs: Diminished to auscultation Cardiovascular: HS I+II, regular, no murmurs Abdomen: Bowel Sounds Present, Soft, Non Tender Extremities: No edema Assessment & Plan Assessment/Plan (1) Pneumonia due to COVID-19 virus: (2) Acute respiratory failure with hypoxia: PLAN: 1. Acute hypoxic respiratory failure secondary to acute COVID-19 pneumonia, worsening Patient is unvaccinated Symptoms started about 15 days ago Chest x-ray and CT of the chest shows extensive disease; acute PE ruled out Sputum culture, blood cultures, urine Legionella and streptococcal antigen unremarkable Currently on air Vo/Bipap Continue on IV dexamethasone, Baracitinib Pulmonology following 2. PTSD/schizophrenia, not in acute exacerbation, continue home medications 3. DVT prophylaxis on Lovenox Charges/Coding Visit Charges Inpatient E&M: 52412 Subs Hosp L3
[2020-12-20] MEDS: dexAMETHasone 10 MG/ML Vial 6 MG IV (08:59)
[2020-12-20] MEDS: Enoxaparin 40 MG/0.4 ML Syringe SC ×2 (08:59→20:22)
[2020-12-20] MEDS: Furosemide 40 MG/4 ML Vial IV (08:59)
[2020-12-20] MEDS: Sertraline 100 MG Tablet 200 MG PO (09:00)
[2020-12-20] MEDS: Magnesium Chloride 64 MG Delay Rel.Tablet 128 MG PO (09:00)
[2020-12-20] MEDS: buPROPion (XL) 300 MG TABLET.XL PO (09:00)
[2020-12-20] MEDS: LORazepam 1 MG Tablet PO ×2 (09:05→20:23)
[2020-12-20] MEDS: Ceftriaxone 1 GM/50 ML BAG IV (10:52)
[2020-12-20] MEDS: LURASIDONE HCL 20 MG TABLET 60 MG PO (11:17)
--- NOTE | 2020-12-20 11:30 | CASEMGMT ---
RN CM MERCHANDISING STOCK ASSOCIATE CM to room to meet with patient for initial transition planning/care coordination assessment. RN CM introduced self and role at [facility]. Pt voices understanding and consents to assessment at this time. Pt resting in bed in no distress at this time. Airvo in place. Pt is A/O at this time and answers all questions appropriately. Care providers, pharmacy, and demographics verified/updated at this time. Initially pt did home COVID test that was positive and then pt had + COVID test @ [facility] 12/19. PCP: [facility] Specialists: Dr Corrigan--pulmonology. Sees behavioral health, psychiatrist, and psychologist @ [place] Preferred [facility]acy: [facility] Insurance: [employer], [employer] Prescription Benefit: [place] Living Will/HPOA: Pt does not currently have LW/HCPOA and interested in talking to SW to complete. KRYSTAL Cooper, made aware. LNOK: , 7 children Living Arrangements: Lives in 2-story home w/walk-out basement. Independent w/ADL's. 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 Pt states just got over COVID and all 7 children had mild cases and they're doing fine. Pt states we're not off the grid, but we stay pretty isolated on our [address] acres [place] land and rarely go out. Children are home schooled and they use [employer] for deliveries. Transportation: Pt states drives self and states no transportation concerns at this time. also drives. DME: States has the following DME: O2 thru [employer] that was just set up by Dr Corrigan's office. He states he had not started using it yet. [facility] He has traction machines for his lower back and neck, ankle brace, and a nebulizer. Pt states no need for further DME at this time. HHC/SNF: No hx of either. Pt goes to OP therapy 3 days a week. He states this is chronic and on-going d/t residual effects from time he was in service. Pt requests for SW to contact his to see if she able to offer any assistance. Allison RICE, made aware. Pt wishes to return home and states has no concerns with going home at time of discharge. CM to follow for increase in home oxygen needs and any further discharge planning/needs. Pt voices no further concerns/needs at this time. Advised pt to ask for CM if any further questions/concerns/needs arise. Voices understanding. PLAN: Home w/family support and discharge plans in place. RN CM to follow for increase needs of O2 and possible assist w[facility] [employer], as [facility] be [facility] Kaveh RODRIGUEZN RN CM
[2020-12-20] MEDS: Lidocaine 5% Patch 2 PATCH TOPICAL (11:52)
--- NOTE | 2020-12-20 12:04 | CASEMGMT ---
PAMELA CLIFFORD NOTE: TC placed to [facility]. No answer. VM left re: pt's admission. RN DARRIN provided for return call. Awaiting return call. Clinical info/packet faxed to [facility] at this time. Kaveh ALEJANDRA CM
--- NOTE | 2020-12-20 12:13 | CON.PCM.ID_ITS ---
HPI Consult Data Date of Consult: 12/20/20 HPI Narrative HPI Narrative: WILMA AVILA, is a 45 M who presents with increasing shortness of breath over the past week. His symptoms started roughly 2-1/2 weeks ago with a headache. He does have extensive exposure to COVID-19 and his family and the patient himself has not had COVID-19 vaccination. Patient was admitted and found to be COVID-19 positive with significant hypoxemia. Patient is currently on high flow nasal cannula. Patient was started on low-dose dexamethasone along with barcitinib and low molecular weight heparin. Chest x-ray shows bilateral infiltrates. Patient denies any hemoptysis. No gastrointestinal symptomatology. Overall hemodynamically stable. [facility] Medical History (Updated 12/19/20 @ 15:[address] Coby Soliman MD) Anxiety Bipolar disorder Chronic pain COVID-19 CPAP (continuous positive airway pressure) dependence Depression Former smoker Hearing loss, left Hearing loss, right History of pilonidal cyst Migraines Sleep apnea Vision loss of left eye Vision loss of right eye Wears hearing aid in both ears Home Medications lurasidone 60 mg PO DAILY 04/03/19 [History Last Taken 2 Weeks Ago ~12/05/20] sertraline 200 mg PO DAILY 04/03/19 [History Last Taken 2 Weeks Ago ~12/05/20] bupropion HCl 300 mg PO DAILY 12/19/20 [History Last Taken 2 Weeks Ago ~12/05/20] dexamethasone 6 mg PO DAILY 12/19/20 [History Last Taken 12/19/20] ergocalciferol (vitamin D2) 1,250 mcg PO QMONTH 12/19/20 [History Last Taken 12/09/20] ibuprofen 800 mg PO BID PRN 12/19/20 [History Last Taken 4 Days Ago ~12/15/20] magnesium oxide 450 mg PO DAILY 12/19/20 [History Last Taken 12/19/20] pravastatin 20 mg PO QHS 12/19/20 [History Last Taken 1 Week Ago ~12/12/20] prazosin 8 mg PO QHS 12/19/20 [History Last Taken 2 Weeks Ago ~12/05/20] riboflavin (vitamin B2) [Vitamin B-2] 100 mg PO DAILY 12/19/20 [History Last Taken 12/19/20] rizatriptan 10 mg PO DAILY PRN 12/19/20 [History Last Taken 2 Weeks Ago ~12/05/20] Allergy/AdvReac Type Severity Reaction Status Date / Time No Known Allergies Allergy Verified 03/25/18 20:58 Family History (Updated 12/19/20 @ 15:[address] Coby Soliman MD) Mother No problems noted. Father Colon cancer Surgical History (Updated 12/19/20 @ 15:[address] Coby Soliman MD) History of back surgery Social History (Updated 12/19/20 @ 15:[address] Coby Soliman MD) household members: spouse Smoking Status: Former smoker alcohol intake: current alcohol intake frequency: a few times a week substance use type: does not use Lab / Micro Data Result Diagrams: 12/20/20 03:00 12/20/20 03:00 Labs: Laboratory Results - last 24 hr 12/19/20 10:44: C-React Prot Ext Range 127.00 H 12/19/20 11:05: COVID-19 (DREW) Detected 12/19/20 17:45: Procalcitonin 0.05 12/20/20 03:00: WBC 6.3, RBC 5.08, Hgb 14.4, Hct 44.1, MCV 86.8, MCH 28.3, MCHC 32.7, RDW Std Deviation 40.7, RDW Coeff of Damien 12.7, Plt Count 254, MPV 10.4, Immature Gran % (Auto) 0.900, Neut % (Auto) 65.4, Lymph % (Auto) 20.7, [place] % (Auto) 10.3 H, Eos % (Auto) 2.4, Baso % (Auto) 0.3, Absolute Neuts (auto) 4.1, Absolute Lymphs (auto) 1.31, Nucleated RBC % 0, Differential Comment SCANNED, Atypical Lymphocytes 1+ 12/20/20 03:00: Sodium 139, Potassium 3.9, Chloride 105, Carbon Dioxide 25.0, Anion Gap 9, BUN 19 H, Creatinine 1.09, Estim Creat Clear Calc 100.55, Est GFR (MDRD) Af Amer 95, Est GFR (MDRD) Non-Af 78, BUN/Creatinine Ratio 17.4, Glucose 145 H, Calcium 8.5, Total Bilirubin 0.40, AST 52 H, ALT 56, Alkaline Phosphatase 98, Total Protein 6.7, Albumin 2.6 L, Globulin 4.1, Albumin/Globulin Ratio 0.6 L Micro: Microbiology 12/19/20 15:25 Sputum, Expectorated/Coughed Gram Stain - Final 12/19/20 19:00 Urine, Clean Catch Legionella Antigen - Final 12/19/20 19:00 Urine, Clean Catch Streptococcus pneumoniae Antigen (M - Final 12/19/20 15:30 Mucosa - Nasopharyngeal Respiratory Panel (PCR) - Final Radiology Impression Chest CTA 12/19/20 10:46 IMPRESSION: Extensive bilateral airspace disease worse in the right hemithorax. Pneumonitis secondary to Covid should be ruled out Electronically Signed: Hiro Pope MD at 12:30 EST , Service support , COVID-19 pneumonia with significant hypoxemia. We will continue current management and continue supportive care. Low-dose dexamethasone plus barcitinib and low molecular weight heparin. Low suspicion for bacterial infection, with discontinue azithromycin plus ceftriaxone.
--- NOTE | 2020-12-20 15:29 | CASEMGMT ---
Social Work Attempted to speak with pt, but he asked for SW to call later. SW to continue to follow. Lyudmila Wasserman, DATA RECOVERY PLANNER [employer]OVEL [employer]NER
[2020-12-20] MEDS: Acetaminophen 325 MG Tablet 650 MG PO (20:23)
[2020-12-20] MEDS: Doxazosin 4 MG Tablet 6 MG PO (20:23)
[2020-12-20] MEDS: Pravastatin 20 MG Tablet PO (20:23)
[2020-12-20] MEDS: MELATONIN 3 MG TABLET PO (20:23)
[2020-12-21] VITALS (36 sets, daily range): BP systolic 103–150; BP diastolic 57–89; PULSE 62–102; RESP 12–25; TEMP 36.3–37.1; O2SAT 19–98
[2020-12-21 05:07] LABS: Absolute Lymphocyte Count 1.45 X10^3/uL (0.83-4.51); Absolute Neutrophil Count 6.9 X10^3/uL (2.0-7.7); Basophil# 0.01 X10^3/uL; Basophil% 0.1 % (0-1); Hematocrit 43.2 % (40-54); Hemoglobin 14.3 g/dL (13.0-16.5); Lymphocyte # 1.45 X10^3/ul (0.83-4.51); Lymphocyte % 15.4 % (19-41); Mean Corp Hgb Conc 33.1 g/dL (32-36); Mean Corpuscular Hgb 28.6 pg (27.0-32.0); Mean Corpuscular Volume 86.4 fL (80-94); Mean Platelet Vol. 10.3 fl (6.2-12.0); Monocyte# 0.97 X10^3/uL; Monocyte% 10.3 % (0-10); NRBC Flagged by Analyzer 0 % (0-5); Neutrophil # 6.89 X10^3/uL (2.7-7.7); Neutrophil % 73.5 % (47-70); Platelet Count 308 K/mm3 (150-450); RBC Distribution Width CV 12.7 % (11.6-14.6); RBC Distribution Width SD 40.3 fl (35.1-43.9); White Blood Count 9.4 K/mm3 (4.4-11.0)
[2020-12-21 05:31] LABS: ALB/GLOB Ratio 0.6 RATIO (0.9-2.4); AST(SGOT) 41 U/L (15-37); Alanine Aminotransfer ALT/SGPT 67 U/L (16-61); Albumin, Serum 2.4 g/dL (3.2-5.0); Alkaline Phosphatase 92 U/L (45-117); Anion Gap 7 (5-15); BUN 24 mg/dL (7-18); BUN/Creat Ratio 24.6 RATIO (10-20); Calcium,Total 8.2 mg/dL (8.5-10.1); Chloride 106 mmol/L (98-107); Creatinine, Serum 0.97 mg/dL (0.70-1.30); EST Glomerular Filtration Rate 89 mL/min (>60); Est Glom Filt Rate - Afr Amer 108 mL/min (>60); Estimated Creatinine Clearance 112.99 ml/min; Glucose 114 mg/dL (74-106); Potassium 3.8 mmol/L (3.5-5.1); Protein, Total 6.4 g/dL (6.4-8.2); Sodium Level 139 mmol/L (136-145)
--- NOTE | 2020-12-21 07:57 | PCS.PANDOC ---
PANDEMIC DOCUMENTATION INITIATED: Date: 09/23/2020 Time: 190
--- NOTE | 2020-12-21 07:59 | EX.PCM.CONCC ---
Assessment & Plan Assessment/Plan (1) Acute respiratory failure with hypoxia: (2) Pneumonia due to COVID-19 virus: PLAN: RECOMMENDATIONS: 1. Continue Decadron (12/30/2020), baricitinib (01/02/2021) and bronchodilators 2. Continue baseline psych and anxiety medications 3. Wean oxygen as tolerated 4. Encourage prone positioning, Acapella and incentive spirometer 5. Add vitamin C and zinc IMPRESSIONS: 1. Acute hypoxic respiratory failure secondary to Covid pneumonia Patient is over 14 days from initial symptoms. Hopefully he is reaching peak symptomatology in the near future. Patient has been placed on Decadron and baricitinib. We will continue with laboratory monitoring as necessary. We will add vitamin C and zinc. Cannot exclude the need for intubation in the next 24 to 48 hours given high oxygen requirements. Continue to diurese as tolerated. 2. JB/unvaccinated status/hearing loss/depression/bipolar/PTSD/obesity Complicates care, management, recovery and prognosis. Patient unable to tolerate baseline AutoPap at this time. Okay to theatric medications. Patient is a full code. HPI Consult Data Date of Consult: 12/21/20 HPI Narrative HPI Narrative: WILMA AVILA is a 45 M, with past medical history listed below, who presented to [facility] on 12/19[facility]2020 at the urging of his physician internist secondary to hypoxia. Patient reportedly had been diagnosed with COVID-19 2 weeks prior to presentation. Patient had been trying to manage as an outpatient with antibiotics and steroids. Patient was placed on oxygen on the day prior to presentation. Patient had a cough productive of clear to white sputum. Patient had attempted using prone positioning. Patient reported significant worsening in exercise tolerance. Patient does see Dr. Corrigan at baseline, but states he typically sees him for sleep apnea, not pulmonary disease. In the ER, patient was afebrile, but tachypneic at 26 breaths/min. Patient was hypertensive at 157/74 and requiring high flow nasal cannula oxygen to maintain saturations. Patient was noted to be 83% on his 5 L/min at presentation. Laboratory work-up showed a normal CBC and CMP. Lactate was 1.6. A CTA of the chest showed no PE, but significant groundglass opacities bilaterally. Patient was admitted to the intensive care unit for further evaluation. Patient initially was being seen by Dr. Corrigan, but there are concerns for availability and worsening oxygen status, so I was asked to see the patient. Since being in the intensive care unit, patient reports subjective slight improvement. Patient has been requiring Airvo during the day and BiPAP with sleep. Patient was placed on AVAPS last night, but did not tolerate this well. Patient reports significant concerns with a history of PTSD. Patient states he does have an AutoPap at home, but typically uses a nasal interface to avoid anxiety. Patient does state that he is willing to be aggressive as he has several children at home and plans. Patient does have a significant history, but currently works as a [employer] and denies any exposure to asbestos or TB. Patient did smoke previously, but does not carry a diagnosis of COPD. Review of systems otherwise negative from a constitutional, HEENT, respiratory, cardiovascular, GI, genitourinary, musculoskeletal, skin, neurologic, psychiatric and hematologic system unless stated above. [facility] Medical History (Updated 12/19/20 @ 15:[address] Coby Soliman MD) Anxiety Bipolar disorder Chronic pain COVID-19 CPAP (continuous positive airway pressure) dependence Depression Former smoker Hearing loss, left Hearing loss, right History of pilonidal cyst Migraines Sleep apnea Vision loss of left eye Vision loss of right eye Wears hearing aid in both ears Home Medications lurasidone 60 mg PO DAILY 04/03/19 [History Last Taken 2 Weeks Ago ~12/05/20] sertraline 200 mg PO DAILY 04/03/19 [History Last Taken 2 Weeks Ago ~12/05/20] bupropion HCl 300 mg PO DAILY 12/19/20 [History Last Taken 2 Weeks Ago ~12/05/20] dexamethasone 6 mg PO DAILY 12/19/20 [History Last Taken 12/19/20] ergocalciferol (vitamin D2) 1,250 mcg PO QMONTH 12/19/20 [History Last Taken 12/09/20] ibuprofen 800 mg PO BID PRN 12/19/20 [History Last Taken 4 Days Ago ~12/15/20] magnesium oxide 450 mg PO DAILY 12/19/20 [History Last Taken 12/19/20] pravastatin 20 mg PO QHS 12/19/20 [History Last Taken 1 Week Ago ~12/12/20] prazosin 8 mg PO QHS 12/19/20 [History Last Taken 2 Weeks Ago ~12/05/20] riboflavin (vitamin B2) [Vitamin B-2] 100 mg PO DAILY 12/19/20 [History Last Taken 12/19/20] rizatriptan 10 mg PO DAILY PRN 12/19/20 [History Last Taken 2 Weeks Ago ~12/05/20] Allergy/AdvReac Type Severity Reaction Status Date / Time No Known Allergies Allergy Verified 03/25/18 20:58 Family History (Updated 12/19/20 @ 15:[address] Coby Soliman MD) Mother No problems noted. Father Colon cancer Surgical History (Updated 12/19/20 @ 15:[address] Coby Soliman MD) History of back surgery Social History (Updated 12/19/20 @ 15:[address] Coby Soliman MD) household members: spouse Smoking Status: Former smoker alcohol intake: current alcohol intake frequency: a few times a week substance use type: does not use ROS ROS Narrative See HPI Physical Exam Const alert, oriented x3 and no apparent distress Constitutional Narrative: On BiPAP during my evaluation General Appearance: cooperative HEENT normocephalic, head/scalp atraumatic and moist oral mucous membranes Eyes PERRL, EOMs intact bilaterally and conjunctivae normal Neck full ROM Chest inspection of chest normal Chest: symmetrical chest wall rise; Negative for crepitus Resp Auscultation: diminished lung sounds; Negative for rales, rhonchi or wheezes Percussion: Negative for dullness Cardio regular rate, regular rhythm, S1 normal heart sound, S2 normal heart sound, no murmurs, no rub and no gallops GI normal to inspection, nondistended, normoactive bowel sounds Extremity no clubbing, cyanosis or edema Skin no rashes or lesions noted Neuro oriented x3 and CN's II-XII intact bilaterally Psych cooperative Appearance: well kempt Mood & Affect: anxious Lab / Micro Data Result Diagrams: 12/21/20 05:00 12/21/20 05:00 Labs: Laboratory Results - last 24 hr 12/21/20 05:00: WBC 9.4, RBC 5.00, Hgb 14.3, Hct 43.2, MCV 86.4, MCH 28.6, MCHC 33.1, RDW Std Deviation 40.3, RDW Coeff of Damien 12.7, Plt Count 308, MPV 10.3, Immature Gran % (Auto) 0.700, Neut % (Auto) 73.5 H, Lymph % (Auto) 15.4 L, [place] % (Auto) 10.3 H, Eos % (Auto) 0.0, Baso % (Auto) 0.1, Absolute Neuts (auto) 6.9, Absolute Lymphs (auto) 1.45, Nucleated RBC % 0 12/21/20 05:00: Sodium 139, Potassium 3.8, Chloride 106, Carbon Dioxide 26.0, Anion Gap 7, BUN 24 H, Creatinine 0.97, Estim Creat Clear Calc 112.99, Est GFR (MDRD) Af Amer 108, Est GFR (MDRD) Non-Af 89, BUN/Creatinine Ratio 24.6 H, Glucose 114 H, Calcium 8.2 L, Total Bilirubin 0.40, AST 41 H, ALT 67 H, Alkaline Phosphatase 92, Total Protein 6.4, Albumin 2.4 L, Globulin 4.0, Albumin/Globulin Ratio 0.6 L Micro: Microbiology 12/19/20 15:25 Sputum, Expectorated/Coughed Gram Stain - Final 12/19/20 15:25 Sputum, Expectorated/Coughed Respiratory Culture - Preliminary Appears to be normal respiratory annalee. Further studies to follow. Charges/Coding Visit Charges Inpatient E&M: 60346 Init Hosp L3
[2020-12-21] MEDS: Sertraline 100 MG Tablet 200 MG PO (08:31)
[2020-12-21] MEDS: buPROPion (XL) 300 MG TABLET.XL PO (08:32)
[2020-12-21] MEDS: dexAMETHasone 10 MG/ML Vial 6 MG IV (08:32)
[2020-12-21] MEDS: Enoxaparin 40 MG/0.4 ML Syringe SC ×2 (08:32→20:39)
[2020-12-21] MEDS: Magnesium Chloride 64 MG Delay Rel.Tablet 128 MG PO (08:32)
[2020-12-21] MEDS: Lidocaine 5% Patch 2 PATCH TOPICAL (08:43)
[2020-12-21] MEDS: LURASIDONE HCL 20 MG TABLET 60 MG PO (10:16)
[2020-12-21] MEDS: LORazepam 1 MG Tablet PO (10:17)
--- NOTE | 2020-12-21 10:21 | PN_ITS ---
Subjective: The patient is slightly less short of breath. He does breathe slightly better after prone positioning. He reports coughing up sputum, 1 tablespoon mostly clear barbosa material no blood. He denies any chest pressure or pain. He is not experiencing tiredness with breathing. He slept better last night with Ativan and tolerated the bilevel therapy at 14/8. He has good p.o. intake - Physical Exam Vitals/I&O's: Vital Signs Temp Pulse Resp BP Pulse Ox 98.1 F 80 20 H 113/74 92 12/21/20 09:00 12/21/20 09:00 12/21/20 09:00 12/21/20 09:00 12/21/20 09:00 Oxygen Flow Rate (L/min) 60 Oxygen Delivery Method Airvo Weight: 130.238 kg Body Mass Index (BMI) 36.7 Intake and Output for Last 24 Hours 12/19/20 12/20/20 12/21/20 23:59 23:59 23:59 Intake Total 305 / 305 665 / 785 120 / 120 Output Total 600 / 600 1625 / 1625 200 / 200 Balance -295 / -295 -960 / -840 -80 / -80 General: Alert, Oriented x3, Cooperative, Well nourished HEENT: EOMI, Normocephalic Oral: Moist Mucosa Neck: Supple, No JVD, Trachea Midline Lungs: - - Slight improvement in air entry. Some rales at the base of the right lung today 5% left upper mid chest is cleared some with improved air entry the posterior left base still has prominent rales there is no wheezing there is no cough today, no accessory muscle use and he is able to complete sentence Cardiovascular: Regular rate, Regular Rhythm, Normal S1, Normal S2, No murmurs Abdomen: Bowel Sounds Present, Soft, Non Tender, Non-Distended, No Hepato- splenomegaly Extremities: No edema, Capillary Refill Less than 3 Seconds Musculoskeletal: No Tenderness to Palpation of Joints or Extremities Lymphatic: No Cervical, Supraclavicular, or Inguinal Adenopathy Neurological: Cranial nerves II-XII grossly intact Psych/Mental Status: Normal Affect, Appropriate, Anxious Microbiology Past 72 Hours 12/19/20 15:25 Sputum, Expectorated/Coughed Gram Stain - Final 12/19/20 15:25 Sputum, Expectorated/Coughed Respiratory Culture - Preliminary Appears to be normal respiratory annalee. Further studies to follow. 12/19/20 19:00 Urine, Clean Catch Legionella Antigen - Final 12/19/20 19:00 Urine, Clean Catch Streptococcus pneumoniae Antigen (M - Final 12/19/20 15:30 Mucosa - Nasopharyngeal Respiratory Panel (PCR) - Final Laboratory Results 12/21/20 05:00: WBC 9.4, RBC 5.00, Hgb 14.3, Hct 43.2, MCV 86.4, MCH 28.6, MCHC 33.1, RDW Std Deviation 40.3, RDW Coeff of Damien 12.7, Plt Count 308, MPV 10.3, Immature Gran % (Auto) 0.700, Neut % (Auto) 73.5 H, Lymph % (Auto) 15.4 L, [place] % (Auto) 10.3 H, Eos % (Auto) 0.0, Baso % (Auto) 0.1, Absolute Neuts (auto) 6.9, Absolute Lymphs (auto) 1.45, Nucleated RBC % 0 12/21/20 05:00: Sodium 139, Potassium 3.8, Chloride 106, Carbon Dioxide 26.0, Anion Gap 7, BUN 24 H, Creatinine 0.97, Estim Creat Clear Calc 112.99, Est GFR (MDRD) Af Amer 108, Est GFR (MDRD) Non-Af 89, BUN/Creatinine Ratio 24.6 H, Glucose 114 H, Calcium 8.2 L, Total Bilirubin 0.40, AST 41 H, ALT 67 H, Alkaline Phosphatase 92, Total Protein 6.4, Albumin 2.4 L, Globulin 4.0, Albumin/Globulin Ratio 0.6 L Current Medications Acetaminophen (Acetaminophen 325 Mg Tablet) 650 mg PO Q6H PRN PRN PRN Reason: Pain Score 1-10/Temp > 100.7 F Last Admin: 12/20/20 20:23 Dose: 650 mg Documented by: Albuterol Sulfate (Albuterol Sulfate 8 Gm Inhaler (60 Puffs)) 2 puff INHALATION Q4H.RT COLIN Ascorbic Acid (Ascorbic Acid 500 Mg Tablet) 1,000 mg PO BIDCM COLIN Baricitinib (Baricitinib 2 Mg Tablet) 4 mg PO DAILY COLIN Last Admin: 12/21/20 08:32 Dose: 4 mg Documented by: Bupropion HCl (Bupropion (Xl) 300 Mg Tablet.Xl) 300 mg PO DAILY [facility] Last Admin: 12/21/20 08:32 Dose: 300 mg Documented by: Dexamethasone Sodium Phosphate (Dexamethasone 10 Mg/Ml Vial) 6 mg IV DAILY [facility] Last Admin: 12/21/20 08:32 Dose: 6 mg Documented by: Doxazosin Mesylate (Doxazosin 4 Mg Tablet) 6 mg PO QHS [facility] Last Admin: 12/20/20 20:23 Dose: 6 mg Documented by: Enoxaparin Sodium (Enoxaparin 40 Mg/0.4 Ml Syringe) 40 mg SC BID [facility] Last Admin: 12/21/20 08:32 Dose: 40 mg Documented by: Ergocalciferol (Ergocalciferol 1.25 Mg (50, 000 Unit) Capsule) 1.25 mg PO QMONTH [facility] Guaifenesin (Guaifenesin 10 Ml Udc (200mg/10ml)) 10 ml PO Q4H PRN PRN PRN Reason: COUGH Sodium Chloride () 250 mls @ 15 mls/hr IV .[id number] PRN PRN Reason: Saline Flush Sodium Chloride () 250 mls @ 15 mls/hr IV .[id number] PRN PRN Reason: Additional IVPB Infusion Lidocaine (Lidocaine 5% Patch) 2 patch TOPICAL DAILY [facility]; Protocol Last Admin: 12/21/20 08:43 Dose: 2 patch Documented by: Lorazepam (Lorazepam 1 Mg Tablet) 0.5 - 1 mg PO Q6H PRN PRN PRN Reason: ANXIETY/RESTLESSNESS/SLEEP Last Admin: 12/21/20 10:17 Dose: 1 mg Documented by: Lorazepam (Lorazepam 0.5 Mg Tablet) 0.5 - 1 mg PO Q6H PRN PRN PRN Reason: ANXIETY/RESTLESSNESS/SLEEP Magnesium Chloride (Magnesium Chloride 64 Mg Delay Rel.Tablet) 128 mg PO DAILY [facility] Last Admin: 12/21/20 08:32 Dose: 128 mg Documented by: Melatonin (Melatonin 3 Mg Tablet) 3 mg PO QHS [facility] Last Admin: 12/20/20 20:23 Dose: 3 mg Documented by: Ondansetron HCl (Ondansetron 4 Mg/2 Ml Vial) 4 mg IV Q8H PRN PRN PRN Reason: NAUSEA/VOMITING Pravastatin Sodium (Pravastatin 20 Mg Tablet) 20 mg PO QHS [facility] Last Admin: 12/20/20 20:23 Dose: 20 mg Documented by: Rizatriptan Benzoate (Rizatriptan Benzoate 10 Mg Tablet) 10 mg PO DAILY PRN PRN Reason: MIGRAINE SYMPTOMS Senna/Docusate Sodium (Senna/Docusate Sodium 1 Tablet) 2 tablet PO BID PRN PRN Reason: Constipation Sertraline HCl (Sertraline 100 Mg Tablet) 200 mg PO DAILY [facility] Last Admin: 12/21/20 08:31 Dose: 200 mg Documented by: Sodium Chloride (0.9% Saline Lock 10 Ml Syringe) 10 - 40 ml IV UD PRN PRN Reason: SALINE FLUSH Zinc Sulfate (Zinc Sulfate (50mg Elemental) 220 Mg Capsule) 220 mg PO TID [facility] Last Admin: 12/21/20 08:56 Dose: 220 mg Documented by: Patient Problems: Active and Suspected Problems (Last Updated 12/19/20 @ 15:[address] Coby Soliman MD) Acute respiratory failure with hypoxia (Acute) Pneumonia due to COVID-19 virus (Acute) Hypoxia (Acute) Medical Necessity - Tobacco Use Smoking Status: Former smoker Assessment/Plan Covid pneumonia, day 16, stability for 48 hours after 7 days of deterioration. Compliant with anti-inflammatories. Oxygenation sufficient with Airvo at 60 L - 77% oxygen. Saturations averaging 92-93. No accessory muscle use, not getting tired, hydrating and advancing some secretions. Recommendations continue with aggressive pulmonary toilet, the patient should continue with aerosol treatments, hydration With respect to anxiety, I am concerned about anxiety accelerating if the patient does avoid his bipolar medication. He is encouraged to take all his medications and if need be utilize Ativan to reduce anxiety, pain regimen as well. Full code, aggressive regimen The case is discussed with Dr. Coats and Dr. Shelley All Active Problems (Last Updated 12/19/20 @ 15:[address] Coby Soliman MD) Acute respiratory failure with hypoxia (Acute) Pneumonia due to COVID-19 virus (Acute) Hypoxia (Acute)
--- NOTE | 2020-12-21 12:46 | PCM.PN.HOSP ---
Subjective Subjective Follow-up on acute hypoxic respiratory failure/acute COVID-19 pneumonia: Patient was seen and examined. He remains on Airvo 60L 75% FiO2. He denies any fever or chills. Objective Data Objective Data Vital Signs: Vital Signs Temp Pulse Resp BP Pulse Ox 98.5 F 74 20 H 121/80 H 95 12/21/20 12:00 12/21/20 12:00 12/21/20 12:00 12/21/20 12:00 12/21/20 12:00 Oxygen Flow Rate (L/min) 60 Oxygen Delivery Method Airvo Weight: 130.238 kg Body Mass Index (BMI) 36.7 Intake & Output: Intake and Output for Last 24 Hours 12/19/20 12/20/20 12/21/20 23:59 23:59 23:59 Intake Total 305 / 305 665 / 785 570 / 570 Output Total 600 / 600 1625 / 1625 450 / 450 Balance -295 / -295 -960 / -840 120 / 120 Lab / Micro Data Result Diagrams: 12/21/20 05:00 12/21/20 05:00 Labs: Laboratory Results - last 24 hr 12/21/20 05:00: WBC 9.4, RBC 5.00, Hgb 14.3, Hct 43.2, MCV 86.4, MCH 28.6, MCHC 33.1, RDW Std Deviation 40.3, RDW Coeff of Damien 12.7, Plt Count 308, MPV 10.3, Immature Gran % (Auto) 0.700, Neut % (Auto) 73.5 H, Lymph % (Auto) 15.4 L, [place] % (Auto) 10.3 H, Eos % (Auto) 0.0, Baso % (Auto) 0.1, Absolute Neuts (auto) 6.9, Absolute Lymphs (auto) 1.45, Nucleated RBC % 0 12/21/20 05:00: Sodium 139, Potassium 3.8, Chloride 106, Carbon Dioxide 26.0, Anion Gap 7, BUN 24 H, Creatinine 0.97, Estim Creat Clear Calc 112.99, Est GFR (MDRD) Af Amer 108, Est GFR (MDRD) Non-Af 89, BUN/Creatinine Ratio 24.6 H, Glucose 114 H, Calcium 8.2 L, Total Bilirubin 0.40, AST 41 H, ALT 67 H, Alkaline Phosphatase 92, Total Protein 6.4, Albumin 2.4 L, Globulin 4.0, Albumin/Globulin Ratio 0.6 L Micro: Microbiology 12/19/20 15:25 Sputum, Expectorated/Coughed Gram Stain - Final 12/19/20 15:25 Sputum, Expectorated/Coughed Respiratory Culture - Preliminary Appears to be normal respiratory annalee. Further studies to follow. 12/19/20 19:00 Urine, Clean Catch Legionella Antigen - Final 12/19/20 19:00 Urine, Clean Catch Streptococcus pneumoniae Antigen (M - Final 12/19/20 15:30 Mucosa - Nasopharyngeal Respiratory Panel (PCR) - Final Physical Exam Narrative Physical exam: General: Alert, Oriented x3, Cooperative, obese, in mild respiratory distress, on Airvo HEENT: Atraumatic Oral: Moist Mucosa Neck: Supple Lungs: Diminished to auscultation Cardiovascular: HS I+II, regular, no murmurs Abdomen: Bowel Sounds Present, Soft, Non Tender Extremities: No edema Assessment & Plan Assessment/Plan (1) Pneumonia due to COVID-19 virus: (2) Acute respiratory failure with hypoxia: PLAN: 1. Acute hypoxic respiratory failure secondary to acute COVID-19 pneumonia, worsening Patient is unvaccinated Chest x-ray and CT of the chest shows extensive disease; acute PE ruled out Sputum culture, blood cultures, urine Legionella and streptococcal antigen unremarkable Currently on air Vo/Bipap Continue on IV dexamethasone, Baracitinib Pulmonology following 2. PTSD/schizophrenia, not in acute exacerbation, continue home medications 3. DVT prophylaxis on Lovenox Charges/Coding Visit Charges Inpatient E&M: 52133 [facility] Hosp L3
[2020-12-21] MEDS: Ascorbic Acid 500 MG Tablet 1000 MG PO (15:02)
[2020-12-21] MEDS: MELATONIN 3 MG TABLET PO (20:39)
[2020-12-21] MEDS: Pravastatin 20 MG Tablet PO (20:39)
[2020-12-21] MEDS: Doxazosin 4 MG Tablet 6 MG PO (20:39)
[2020-12-21] MEDS: LORazepam 0.5 MG Tablet PO (22:48)
[2020-12-22] VITALS (36 sets, daily range): BP systolic 103–158; BP diastolic 67–86; PULSE 74–106; RESP 12–28; TEMP 36.4–37; O2SAT 88–96
[2020-12-22 05:25] LABS: Absolute Lymphocyte Count 1.44 X10^3/uL (0.83-4.51); Absolute Neutrophil Count 7.1 X10^3/uL (2.0-7.7); Basophil# 0.02 X10^3/uL; Basophil% 0.2 % (0-1); Eosinophil# 0.01 X10^3/uL; Eosinophils% 0.1 % (0-5); Hematocrit 42.3 % (40-54); Hemoglobin 14.2 g/dL (13.0-16.5); Lymphocyte # 1.44 X10^3/ul (0.83-4.51); Mean Corp Hgb Conc 33.6 g/dL (32-36); Mean Corpuscular Volume 86.5 fL (80-94); Mean Platelet Vol. 10.2 fl (6.2-12.0); Monocyte# 0.97 X10^3/uL; Monocyte% 10.1 % (0-10); NRBC Flagged by Analyzer 0 % (0-5); Neutrophil # 7.06 X10^3/uL (2.7-7.7); Neutrophil % 73.6 % (47-70); Platelet Count 324 K/mm3 (150-450); RBC Distribution Width CV 12.6 % (11.6-14.6); RBC Distribution Width SD 39.8 fl (35.1-43.9); Red Blood Count 4.89 M/mm3 (4.6-6.2); White Blood Count 9.6 K/mm3 (4.4-11.0)
[2020-12-22 05:49] LABS: ALB/GLOB Ratio 0.6 RATIO (0.9-2.4); AST(SGOT) 34 U/L (15-37); Alanine Aminotransfer ALT/SGPT 65 U/L (16-61); Albumin, Serum 2.3 g/dL (3.2-5.0); Alkaline Phosphatase 90 U/L (45-117); Anion Gap 6 (5-15); BUN 20 mg/dL (7-18); BUN/Creat Ratio 20.9 RATIO (10-20); Chloride 107 mmol/L (98-107); Creatinine, Serum 0.96 mg/dL (0.70-1.30); EST Glomerular Filtration Rate 91 mL/min (>60); Est Glom Filt Rate - Afr Amer 110 mL/min (>60); Estimated Creatinine Clearance 114.17 ml/min; Glucose 90 mg/dL (74-106); Potassium 4.1 mmol/L (3.5-5.1); Protein, Total 6.3 g/dL (6.4-8.2); Sodium Level 138 mmol/L (136-145)
--- NOTE | 2020-12-22 06:54 | PCM.PN.INT ---
Assessment & Plan Assessment/Plan (1) Acute respiratory failure with hypoxia: (2) Pneumonia due to COVID-19 virus: PLAN: RECOMMENDATIONS: 1. Continue Decadron (12/30/2020), baricitinib (01/02/2021) and bronchodilators 2. Continue baseline psych and anxiety medications 3. Wean oxygen as tolerated 4. Encourage prone positioning, Acapella and incentive spirometer 5. Challenge with low-dose Lasix today IMPRESSIONS: 1. Acute hypoxic respiratory failure secondary to Covid pneumonia Patient is over 14 days from initial symptoms. Hopefully he is reaching peak symptomatology in the near future. Patient has been placed on Decadron and baricitinib. We will continue with laboratory monitoring as necessary. Continue vitamin C and zinc. Cannot exclude the need for intubation, but patient appears to be stabilizing on the current therapy. Continue to diurese as tolerated. 2. JB/unvaccinated status/hearing loss/depression/bipolar/PTSD/obesity Complicates care, management, recovery and prognosis. Patient unable to tolerate baseline AutoPap at this time. Okay to theatric medications. Patient is a full code. Subjective Subjective Patient did well overnight. Patient was able to tolerate BiPAP while sleeping and was on 60% Airvo during the day. No epistaxis has been reported. Patient resting comfortably on my evaluation. Patient has complained of some intermittent low back pain Objective Data Objective Data Vital Signs: Vital Signs Temp Pulse Resp BP Pulse Ox 37.0 C 77 24 H 108/75 91 12/22/20 00:00 12/22/20 06:00 12/22/20 06:00 12/22/20 06:00 12/22/20 06:00 Oxygen Flow Rate (L/min) 60 Oxygen Delivery Method Bi-pap Weight: 130.238 kg Body Mass Index (BMI) 36.7 Intake & Output: Intake and Output for Last 24 Hours 12/20/20 12/21/20 12/22/20 23:59 23:59 23:59 Intake Total 665 / 785 1350 / 1750 575 / 575 Output Total 1625 / 1625 2275 / 2575 900 / 900 Balance -960 / -840 -925 / -825 -325 / -325 Lab / Micro Data Result Diagrams: 12/22/20 05:20 12/22/20 05:20 Labs: Laboratory Results - last 24 hr 12/22/20 05:20: WBC 9.6, RBC 4.89, Hgb 14.2, Hct 42.3, MCV 86.5, MCH 29.0, MCHC 33.6, RDW Std Deviation 39.8, RDW Coeff of Damien 12.6, Plt Count 324, MPV 10.2, Immature Gran % (Auto) 1.000 H, Neut % (Auto) 73.6 H, Lymph % (Auto) 15.0 L, [place] % (Auto) 10.1 H, Eos % (Auto) 0.1, Baso % (Auto) 0.2, Absolute Neuts (auto) 7.1, Absolute Lymphs (auto) 1.44, Nucleated RBC % 0 12/22/20 05:20: Sodium 138, Potassium 4.1, Chloride 107, Carbon Dioxide 25.0, Anion Gap 6, BUN 20 H, Creatinine 0.96, Estim Creat Clear Calc 114.17, Est GFR (MDRD) Af Amer 110, Est GFR (MDRD) Non-Af 91, BUN/Creatinine Ratio 20.9 H, Glucose 90, Calcium 8.0 L, Total Bilirubin 0.50, AST 34, ALT 65 H, Alkaline Phosphatase 90, Total Protein 6.3 L, Albumin 2.3 L, Globulin 4.0, Albumin/Globulin Ratio 0.6 L Micro: Microbiology 12/19/20 11:23 Blood Culture (Wb) - Left Hand Blood Culture - Preliminary No growth in 48 hours. 12/19/20 10:44 Blood Culture (Wb) - Anticubital Left Blood Culture - Preliminary No growth in 48 hours. 12/19/20 15:25 Sputum, Expectorated/Coughed Gram Stain - Final 12/19/20 15:25 Sputum, Expectorated/Coughed Respiratory Culture - Preliminary Appears to be normal respiratory annalee. Further studies to follow. 12/19/20 19:00 Urine, Clean Catch Legionella Antigen - Final 12/19/20 19:00 Urine, Clean Catch Streptococcus pneumoniae Antigen (M - Final 12/19/20 15:30 Mucosa - Nasopharyngeal Respiratory Panel (PCR) - Final Physical Exam Const alert, oriented x3 and no apparent distress Constitutional Narrative: On BiPAP during my evaluation General Appearance: cooperative HEENT normocephalic, head/scalp atraumatic and moist oral mucous membranes Eyes PERRL, EOMs intact bilaterally and conjunctivae normal Neck full ROM Chest inspection of chest normal Chest: symmetrical chest wall rise; Negative for crepitus Resp Auscultation: diminished lung sounds; Negative for rales, rhonchi or wheezes Percussion: Negative for dullness Cardio regular rate, regular rhythm, S1 normal heart sound, S2 normal heart sound, no murmurs, no rub and no gallops GI normal to inspection, nondistended, normoactive bowel sounds Extremity no clubbing, cyanosis or edema Skin no rashes or lesions noted Neuro oriented x3 and CN's II-XII intact bilaterally Psych cooperative Appearance: well kempt Mood & Affect: anxious Charges/Coding Visit Charges Inpatient E&M: 49571 Subs Hosp L3
[2020-12-22] MEDS: Ascorbic Acid 500 MG Tablet 1000 MG PO ×2 (08:00→15:54)
[2020-12-22] MEDS: dexAMETHasone 10 MG/ML Vial 6 MG IV (08:00)
[2020-12-22] MEDS: Enoxaparin 40 MG/0.4 ML Syringe SC ×2 (08:00→20:17)
[2020-12-22] MEDS: Magnesium Chloride 64 MG Delay Rel.Tablet 128 MG PO (08:00)
[2020-12-22] MEDS: LURASIDONE HCL 20 MG TABLET 60 MG PO (08:01)
[2020-12-22] MEDS: Sertraline 100 MG Tablet 200 MG PO (08:01)
[2020-12-22] MEDS: Senna/Docusate Sodium 1 Tablet 2 TABLET PO (08:01)
[2020-12-22] MEDS: LORazepam 1 MG Tablet PO (08:02)
[2020-12-22] MEDS: Lidocaine 5% Patch 2 PATCH TOPICAL (08:02)
[2020-12-22] MEDS: 0.9% Saline Lock 10 ML Syringe IV (08:02)
[2020-12-22] MEDS: Furosemide 20 MG Tablet PO (08:02)
[2020-12-22] MEDS: buPROPion (XL) 300 MG TABLET.XL PO (08:02)
--- NOTE | 2020-12-22 09:22 | PCM.PN.HOSP ---
Subjective Subjective Follow-up on acute hypoxic respiratory failure/acute COVID-19 pneumonia: Patient was seen and examined. He remains on Airvo/Bipap overnight. He denies any new complaints. Objective Data Objective Data Vital Signs: Vital Signs Temp Pulse Resp BP Pulse Ox 97.5 F L 97 18 108/70 88 12/22/20 08:00 12/22/20 08:00 12/22/20 08:00 12/22/20 08:00 12/22/20 08:00 Oxygen Flow Rate (L/min) 60 Oxygen Delivery Method Airvo Weight: 130.725 kg Body Mass Index (BMI) 36.7 Intake & Output: Intake and Output for Last 24 Hours 12/20/20 12/21/20 12/22/20 23:59 23:59 23:59 Intake Total 665 / 785 1350 / 1750 695 / 695 Output Total 1625 / 1625 2275 / 2575 1200 / 1200 Balance -960 / -840 -925 / -825 -505 / -505 Lab / Micro Data Result Diagrams: 12/22/20 05:20 12/22/20 05:20 Labs: Laboratory Results - last 24 hr 12/22/20 05:20: WBC 9.6, RBC 4.89, Hgb 14.2, Hct 42.3, MCV 86.5, MCH 29.0, MCHC 33.6, RDW Std Deviation 39.8, RDW Coeff of Damien 12.6, Plt Count 324, MPV 10.2, Immature Gran % (Auto) 1.000 H, Neut % (Auto) 73.6 H, Lymph % (Auto) 15.0 L, [place] % (Auto) 10.1 H, Eos % (Auto) 0.1, Baso % (Auto) 0.2, Absolute Neuts (auto) 7.1, Absolute Lymphs (auto) 1.44, Nucleated RBC % 0 12/22/20 05:20: Sodium 138, Potassium 4.1, Chloride 107, Carbon Dioxide 25.0, Anion Gap 6, BUN 20 H, Creatinine 0.96, Estim Creat Clear Calc 114.17, Est GFR (MDRD) Af Amer 110, Est GFR (MDRD) Non-Af 91, BUN/Creatinine Ratio 20.9 H, Glucose 90, Calcium 8.0 L, Total Bilirubin 0.50, AST 34, ALT 65 H, Alkaline Phosphatase 90, Total Protein 6.3 L, Albumin 2.3 L, Globulin 4.0, Albumin/Globulin Ratio 0.6 L Micro: Microbiology 12/19/20 11:23 Blood Culture (Wb) - Left Hand Blood Culture - Preliminary No growth in 48 hours. 12/19/20 10:44 Blood Culture (Wb) - Anticubital Left Blood Culture - Preliminary No growth in 48 hours. 12/19/20 15:25 Sputum, Expectorated/Coughed Gram Stain - Final 12/19/20 15:25 Sputum, Expectorated/Coughed Respiratory Culture - Preliminary Appears to be normal respiratory annalee. Further studies to follow. 12/19/20 19:00 Urine, Clean Catch Legionella Antigen - Final 12/19/20 19:00 Urine, Clean Catch Streptococcus pneumoniae Antigen (M - Final 12/19/20 15:30 Mucosa - Nasopharyngeal Respiratory Panel (PCR) - Final Physical Exam Narrative Physical exam: General: Alert, Oriented x3, Cooperative, obese, on Airvo HEENT: Atraumatic Oral: Moist Mucosa Neck: Supple Lungs: Diminished to auscultation Cardiovascular: HS I+II, regular, no murmurs Abdomen: Bowel Sounds Present, Soft, Non Tender Extremities: No edema Assessment & Plan Assessment/Plan (1) Pneumonia due to COVID-19 virus: (2) Acute respiratory failure with hypoxia: PLAN: Summary: 45-year-old who is unvaccinated against COVID-19 comes in with progressive shortness of breath ongoing for 15 days. 1. Acute hypoxic respiratory failure secondary to acute COVID-19 pneumonia, oxygen requirement fluctuating Chest x-ray and CT of the chest shows extensive disease; acute PE ruled out Sputum culture, blood cultures, urine Legionella and streptococcal antigen unremarkable Continue to be on air Vo/Bipap; Continue on IV dexamethasone, Baracitinib Pulmonology following Trial of Lasix x1 2. PTSD/schizophrenia, not in acute exacerbation, continue home medications 3. DVT prophylaxis on Lovenox Charges/Coding Visit Charges Inpatient E&M: 31974 [facility] Hosp L3
[2020-12-22] MEDS: Pravastatin 20 MG Tablet PO (20:17)
[2020-12-22] MEDS: MELATONIN 10 MG TABLET PO (20:17)
[2020-12-22] MEDS: Doxazosin 4 MG Tablet 6 MG PO (20:17)
[2020-12-22] MEDS: LORazepam 0.5 MG Tablet PO (21:45)
[2020-12-23] VITALS (31 sets, daily range): BP systolic 94–137; BP diastolic 56–93; PULSE 57–98; RESP 12–26; TEMP 36.7–36.9; O2SAT 88–98
[2020-12-23 05:41] LABS: Absolute Lymphocyte Count 1.35 X10^3/uL (0.83-4.51); Absolute Neutrophil Count 6.8 X10^3/uL (2.0-7.7); Basophil# 0.02 X10^3/uL; Basophil% 0.2 % (0-1); Eosinophil# 0.04 X10^3/uL; Eosinophils% 0.4 % (0-5); Hematocrit 44.4 % (40-54); Hemoglobin 14.5 g/dL (13.0-16.5); Lymphocyte # 1.35 X10^3/ul (0.83-4.51); Lymphocyte % 14.5 % (19-41); Mean Corp Hgb Conc 32.7 g/dL (32-36); Mean Corpuscular Hgb 28.4 pg (27.0-32.0); Mean Corpuscular Volume 86.9 fL (80-94); Mean Platelet Vol. 10.3 fl (6.2-12.0); Monocyte# 0.87 X10^3/uL; Monocyte% 9.3 % (0-10); NRBC Flagged by Analyzer 0 % (0-5); Neutrophil # 6.83 X10^3/uL (2.7-7.7); Neutrophil % 73.3 % (47-70); Platelet Count 331 K/mm3 (150-450); RBC Distribution Width CV 12.7 % (11.6-14.6); RBC Distribution Width SD 40.5 fl (35.1-43.9); Red Blood Count 5.11 M/mm3 (4.6-6.2); White Blood Count 9.3 K/mm3 (4.4-11.0)
[2020-12-23 05:58] LABS: ALB/GLOB Ratio 0.5 RATIO (0.9-2.4); AST(SGOT) 40 U/L (15-37); Alanine Aminotransfer ALT/SGPT 90 U/L (16-61); Albumin, Serum 2.3 g/dL (3.2-5.0); Alkaline Phosphatase 103 U/L (45-117); Anion Gap 6 (5-15); BUN 20 mg/dL (7-18); BUN/Creat Ratio 23.6 RATIO (10-20); Calcium,Total 8.2 mg/dL (8.5-10.1); Chloride 107 mmol/L (98-107); Creatinine, Serum 0.85 mg/dL (0.70-1.30); EST Glomerular Filtration Rate 105 mL/min (>60); Est Glom Filt Rate - Afr Amer 127 mL/min (>60); Estimated Creatinine Clearance 128.94 ml/min; Globulin 4.2 g/dL (2.2-4.2); Glucose 108 mg/dL (74-106); Potassium 4.5 mmol/L (3.5-5.1); Protein, Total 6.5 g/dL (6.4-8.2); Sodium Level 136 mmol/L (136-145)
--- NOTE | 2020-12-23 06:54 | PN.CC_ITS ---
Assessment & Plan Assessment/Plan (1) Acute respiratory failure with hypoxia: (2) Pneumonia due to COVID-19 virus: PLAN: RECOMMENDATIONS: 1. Continue Decadron (12/30/2020), baricitinib (01/02/2021) and bronchodilators 2. Continue baseline psych and anxiety medications 3. Wean oxygen as tolerated 4. Encourage prone positioning, Acapella and incentive spirometer 5. Okay to leave the intensive care unit from my perspective IMPRESSIONS: 1. Acute hypoxic respiratory failure secondary to Covid pneumonia Patient is over 14 days from initial symptoms. Hopefully he is reaching peak symptomatology in the near future. Patient has been placed on Decadron and baricitinib. We will continue with laboratory monitoring as necessary. Continue vitamin C and zinc. Cannot exclude the need for intubation, but patient appears to be stabilizing on the current therapy. Continue to diurese as tolerated. Possibly try to diurese tomorrow. Patient has been hemodynamically stable for over 48 hours on current FiO2. Okay to leave the intensive care unit from my perspective 2. JB/unvaccinated status/hearing loss/depression/bipolar/PTSD/obesity Complicates care, management, recovery and prognosis. Patient unable to tolerate baseline AutoPap at this time. Okay to theatric medications. Patient is a full code. Subjective Subjective The patient did well overnight. No acute issues were reported. Patient continues to tolerate BiPAP with sleep. Patient is not reporting any issues with dyspnea or pain at this time. Patient is having a cough. Objective Data Objective Data Vital Signs: Vital Signs Temp Pulse Resp BP Pulse Ox 36.7 C 76 20 H 113/74 92 12/23/20 04:00 12/23/20 06:00 12/23/20 06:00 12/23/20 06:00 12/23/20 06:00 Oxygen Flow Rate (L/min) 10 Oxygen Delivery Method Bi-pap Weight: 130.408 kg Body Mass Index (BMI) 36.7 Intake & Output: Intake and Output for Last 24 Hours 12/21/20 12/22/20 12/23/20 23:59 23:59 23:59 Intake Total 1350 / 1750 1814 / 1990 175 / 175 Output Total 2275 / 2575 3500 / 3500 1900 / 1900 Balance -925 / -825 -1685 / -1510 -1725 / -1725 Lab / Micro Data Result Diagrams: 12/23/20 04:45 12/23/20 04:45 Labs: Laboratory Results - last 24 hr 12/23/20 04:45: WBC 9.3, RBC 5.11, Hgb 14.5, Hct 44.4, MCV 86.9, MCH 28.4, MCHC 32.7, RDW Std Deviation 40.5, RDW Coeff of Damien 12.7, Plt Count 331, MPV 10.3, Immature Gran % (Auto) 2.300 H, Neut % (Auto) 73.3 H, Lymph % (Auto) 14.5 L, [place] % (Auto) 9.3, Eos % (Auto) 0.4, Baso % (Auto) 0.2, Absolute Neuts (auto) 6.8, Absolute Lymphs (auto) 1.35, Nucleated RBC % 0 12/23/20 04:45: Sodium 136, Potassium 4.5, Chloride 107, Carbon Dioxide 23.0, Anion Gap 6, BUN 20 H, Creatinine 0.85, Estim Creat Clear Calc 128.94, Est GFR (MDRD) Af Amer 127, Est GFR (MDRD) Non-Af 105, BUN/Creatinine Ratio 23.6 H, Glucose 108 H, Calcium 8.2 L, Total Bilirubin 0.40, AST 40 H, ALT 90 H, Alkaline Phosphatase 103, Total Protein 6.5, Albumin 2.3 L, Globulin 4.2, Albumi n/Globulin Ratio 0.5 L Micro: Microbiology 12/19/20 15:25 Sputum, Expectorated/Coughed Gram Stain - Final 12/19/20 15:25 Sputum, Expectorated/Coughed Respiratory Culture - Final Mixed normal respiratory annalee. No Streptococcus pneumoniae, beta-hemolytic Streptococcus or Staphylococcus aureus isolated. 12/19/20 11:23 Blood Culture (Wb) - Left Hand Blood Culture - Preliminary No growth in 48 hours. 12/19/20 10:44 Blood Culture (Wb) - Anticubital Left Blood Culture - Preliminary No growth in 48 hours. 12/19/20 19:00 Urine, Clean Catch Legionella Antigen - Final 12/19/20 19:00 Urine, Clean Catch Streptococcus pneumoniae Antigen (M - Final 12/19/20 15:30 Mucosa - Nasopharyngeal Respiratory Panel (PCR) - Final Physical Exam Const alert, oriented x3 and no apparent distress Constitutional Narrative: On BiPAP during my evaluation General Appearance: cooperative HEENT normocephalic, head/scalp atraumatic and moist oral mucous membranes Eyes PERRL, EOMs intact bilaterally and conjunctivae normal Neck full ROM Chest inspection of chest normal Chest: symmetrical chest wall rise; Negative for crepitus Resp Auscultation: diminished lung sounds; Negative for rales, rhonchi or wheezes Percussion: Negative for dullness Cardio regular rate, regular rhythm, S1 normal heart sound, S2 normal heart sound, no murmurs, no rub and no gallops GI normal to inspection, nondistended, normoactive bowel sounds Extremity no clubbing, cyanosis or edema Skin no rashes or lesions noted Neuro oriented x3 and CN's II-XII intact bilaterally Psych cooperative Appearance: well kempt Mood & Affect: anxious Charges/Coding Visit Charges Inpatient E&M: 42194 Subs Hosp L3
--- NOTE | 2020-12-23 10:22 | PN.HOSP_ITS ---
Subjective Subjective Patient seen and examined. He had no active complaints. He is still coughing, and his oxygen requirements on AirVo have gone up to 60L and 90% FiO2. He has otherwise remained hemodynamically stable. Objective Data Objective Data Vital Signs: Vital Signs Temp Pulse Resp BP Pulse Ox 98.1 F 93 19 H 117/76 90 12/23/20 08:00 12/23/20 09:00 12/23/20 09:00 12/23/20 09:00 12/23/20 09:00 Oxygen Flow Rate (L/min) 60 Oxygen Delivery Method Airvo Weight: 287 lb 8 oz Body Mass Index (BMI) 36.7 Intake & Output: Intake and Output for Last 24 Hours 12/21/20 12/22/20 12/23/20 23:59 23:59 23:59 Intake Total 1350 / 1750 1815 / 1989 175 / 175 Output Total 2275 / 2575 3500 / 3500 2250 / 2250 Balance -925 / -825 -1685 / -1510 -2075 / -2075 Lab / Micro Data Result Diagrams: 12/23/20 04:45 12/23/20 04:45 Labs: Laboratory Results - last 24 hr 12/23/20 04:45: WBC 9.3, RBC 5.11, Hgb 14.5, Hct 44.4, MCV 86.9, MCH 28.4, MCHC 32.7, RDW Std Deviation 40.5, RDW Coeff of Damien 12.7, Plt Count 331, MPV 10.3, Immature Gran % (Auto) 2.300 H, Neut % (Auto) 73.3 H, Lymph % (Auto) 14.5 L, [place] % (Auto) 9.3, Eos % (Auto) 0.4, Baso % (Auto) 0.2, Absolute Neuts (auto) 6.8, Absolute Lymphs (auto) 1.35, Nucleated RBC % 0 12/23/20 04:45: Sodium 136, Potassium 4.5, Chloride 107, Carbon Dioxide 23.0, Anion Gap 6, BUN 20 H, Creatinine 0.85, Estim Creat Clear Calc 128.94, Est GFR (MDRD) Af Amer 127, Est GFR (MDRD) Non-Af 105, BUN/Creatinine Ratio 23.6 H, Glucose 108 H, Calcium 8.2 L, Total Bilirubin 0.40, AST 40 H, ALT 90 H, Alkaline Phosphatase 103, Total Protein 6.5, Albumin 2.3 L, Globulin 4.2, Albumin/Globulin Ratio 0.5 L Micro: Microbiology 12/19/20 15:25 Sputum, Expectorated/Coughed Gram Stain - Final 12/19/20 15:25 Sputum, Expectorated/Coughed Respiratory Culture - Final Mixed normal respiratory annalee. No Streptococcus pneumoniae, beta-hemolytic Streptococcus or Staphylococcus aureus isolated. 12/19/20 11:23 Blood Culture (Wb) - Left Hand Blood Culture - Preliminary No growth in 48 hours. 12/19/20 10:44 Blood Culture (Wb) - Anticubital Left Blood Culture - Preliminary No growth in 48 hours. 12/19/20 19:00 Urine, Clean Catch Legionella Antigen - Final 12/19/20 19:00 Urine, Clean Catch Streptococcus pneumoniae Antigen (M - Final 12/19/20 15:30 Mucosa - Nasopharyngeal Respiratory Panel (PCR) - Final Physical Exam Const alert, oriented x3 and no apparent distress Exam Limitations: no limitations HEENT head/scalp atraumatic and moist oral mucous membranes Head and Scalp: normocephalic Eyes PERRL, EOMs intact bilaterally and conjunctivae normal Neck no lymphadenopathy Resp Resp Narrative: diminished breath sounds bibasally, few crackles. On AIrVO Cardio regular rate, regular rhythm, S1 normal heart sound, S2 normal heart sound and no murmurs GI normal to inspection, nondistended, normoactive bowel sounds, soft to palpation and non-tender Extremity normal to inspection, full ROM and no clubbing, cyanosis or edema Peripheral Pulses: Yes pulses 2+ throughout Skin no rashes or lesions noted Neuro oriented x3, CN's II-XII intact bilaterally and moves all extremities Sensorium / Orientation: awake and alert Psych affect normal Assessment & Plan Assessment/Plan (1) Acute respiratory failure with hypoxia: (2) Pneumonia due to COVID-19 virus: (3) Hypoxia: PLAN: #Acute hypoxic respiratory failure due to COVID 19 pneumonia * oxygen requirements have gone up to 60L and FiO2 of 90% * on decadron and baricitinib * pulmonology on board * lasix prn to maintain euvolemic status * critical care on board * on breathing treatment with bronchodilators * #Schizophrenia and PTSD * stable. On bupriopion and sertraline * DVT prophylaxis: lovenox 40mg bid Charges/Coding Visit Charges Inpatient E&M: 77555 Subs Hosp L3
[2020-12-23] MEDS: LORazepam 1 MG Tablet PO (10:35)
[2020-12-23] MEDS: LURASIDONE HCL 20 MG TABLET 60 MG PO (10:35)
[2020-12-23] MEDS: Sertraline 100 MG Tablet 200 MG PO (10:36)
[2020-12-23] MEDS: Ascorbic Acid 500 MG Tablet 1000 MG PO ×2 (10:36→17:00)
[2020-12-23] MEDS: dexAMETHasone 10 MG/ML Vial 6 MG IV (10:36)
[2020-12-23] MEDS: buPROPion (XL) 300 MG TABLET.XL PO (10:36)
[2020-12-23] MEDS: Sodium Chloride 0.65% 1 SPRAY SPRAY.BTL NASAL ×2 (10:37→20:00)
[2020-12-23] MEDS: Lidocaine 5% Patch 2 PATCH TOPICAL (10:37)
[2020-12-23] MEDS: Enoxaparin 40 MG/0.4 ML Syringe SC ×2 (10:37→20:03)
[2020-12-23] MEDS: Magnesium Chloride 64 MG Delay Rel.Tablet 128 MG PO (10:42)
[2020-12-23] MEDS: Acetaminophen 325 MG Tablet 650 MG PO ×2 (13:20→20:02)
[2020-12-23] MEDS: BENZOCAINE/MENTHOL 1 LOZENGE MUCOUS MEM ×2 (13:20→20:02)
--- NOTE | 2020-12-23 14:16 | PCM.PN.ID ---
Physical Exam Narrative Feeling better, no fever, no n/v/d, less dyspnea Const alert General Appearance: cooperative Resp Auscultation: diminished lung sounds Cardio regular rate and regular rhythm GI normal to inspection, nondistended, normoactive bowel sounds Skin no rashes or lesions noted ID ID: Route of nutrition/ use of supplements: [] Nutritional Intake: [] IV Site: [] Ramirez Catheter: [] Assessment & Plan Assessment/Plan (1) Pneumonia due to COVID-19 virus: PLAN: Sx started 12/05/20. Out of isolation tomorrow. Unvaccinated, recommend vaccine after discharge. On baricitinib, dex. CT neg for PE. Will follow (2) Acute respiratory failure with hypoxia:
--- NOTE | 2020-12-23 15:20 | CHAPLAIN ---
Type of Pastoral Visit ___ Initial Visit ___ Follow-up Visit ___ On-call Visit ___ General Patient Visit ___ Spiritual Assessment ___ Family Conference ___ Bereavement ___ Rapid Response ___ Code Blue ___ Other (describe below) Pastoral Care Referral From ___ Patient ___ Family ___ Nurse ___ Physician ___ Press Writer ___ Is/It Project Manager ___ Other (describe below) Sacrament/Intervention ___ Active listening ___ Anointing ___ Baptist ___ Bereavement ___ Communion ___ Julia exploration ___ ___ Life review ___ Prayer ___ Reconciliation ___ Sacrament of Sick ___ Supportive presence ___ Wedding ___ Other (describe below) Pastoral Comments phone call attempt made for this isolation patient; pt did not answer the phone after the three rings before automated voicemail
--- NOTE | 2020-12-23 16:07 | PCM.PROGNOTE ---
Subjective: the patient indicates good appetite, not complaining of shortness of breath, adequate amount of sleep last night on BiPAP therapy. Some dryness of the nasal mucosa but no significant epistaxis. He denies any chest pressure or pain GI symptoms and his mood and energy are stable. - Physical Exam Vitals/I&O's: Vital Signs Temp Pulse Resp BP Pulse Ox 98.5 F 82 18 126/71 H 95 12/23/20 12:00 12/23/20 15:00 12/23/20 15:00 12/23/20 15:00 12/23/20 15:00 Oxygen Flow Rate (L/min) 60 Oxygen Delivery Method Airvo Weight: 130.408 kg Body Mass Index (BMI) 36.7 Intake and Output for Last 24 Hours 12/21/20 12/22/20 12/23/20 23:59 23:59 23:59 Intake Total 1350 / 1750 1814 / 1990 175 / 175 Output Total 2275 / 2575 3500 / 3500 3125 / 3125 Balance -925 / -825 -1685 / -1510 -2950 / -2950 General: Alert, Oriented x3, Cooperative HEENT: Atraumatic, PERRLA, EOMI, Normocephalic Oral: - - dry nasal mucosa, all oral cavity Neck: Supple, No JVD, Negative Carotid Bruits, No Nodes, No Nuchal Rigidity Lungs: - - lung exam shows no dullness to percussion, diminished breath sounds, bibasilar rales course egophony in the mid lung bilaterally, nonproductive cough, no wheezing, no friction Cardiovascular: Regular rate, No murmurs Abdomen: Bowel Sounds Present, Soft, Non Tender Extremities: No edema, Capillary Refill Less than 3 Seconds Skin: No rashes, No breakdown Musculoskeletal: No Tenderness to Palpation of Joints or Extremities Neurological: Cranial nerves II-XII grossly intact Psych/Mental Status: Normal Affect, Appropriate Microbiology Past 72 Hours 12/19/20 15:25 Sputum, Expectorated/Coughed Gram Stain - Final 12/19/20 15:25 Sputum, Expectorated/Coughed Respiratory Culture - Final Mixed normal respiratory annalee. No Streptococcus pneumoniae, beta-hemolytic Streptococcus or Staphylococcus aureus isolated. 12/19/20 11:23 Blood Culture (Wb) - Left Hand Blood Culture - Preliminary No growth in 48 hours. 12/19/20 10:44 Blood Culture (Wb) - Anticubital Left Blood Culture - Preliminary No growth in 48 hours. Laboratory Results 12/23/20 04:45: WBC 9.3, RBC 5.11, Hgb 14.5, Hct 44.4, MCV 86.9, MCH 28.4, MCHC 32.7, RDW Std Deviation 40.5, RDW Coeff of Damien 12.7, Plt Count 331, MPV 10.3, Immature Gran % (Auto) 2.300 H, Neut % (Auto) 73.3 H, Lymph % (Auto) 14.5 L, [place] % (Auto) 9.3, Eos % (Auto) 0.4, Baso % (Auto) 0.2, Absolute Neuts (auto) 6.8, Absolute Lymphs (auto) 1.35, Nucleated RBC % 0 12/23/20 04:45: Sodium 136, Potassium 4.5, Chloride 107, Carbon Dioxide 23.0, Anion Gap 6, BUN 20 H, Creatinine 0.85, Estim Creat Clear Calc 128.94, Est GFR (MDRD) Af Amer 127, Est GFR (MDRD) Non-Af 105, BUN/Creatinine Ratio 23.6 H, Glucose 108 H, Calcium 8.2 L, Total Bilirubin 0.40, AST 40 H, ALT 90 H, Alkaline Phosphatase 103, Total Protein 6.5, Albumin 2.3 L, Globulin 4.2, Albumin/Globulin Ratio 0.5 L Current Medications Acetaminophen (Acetaminophen 325 Mg Tablet) 650 mg PO Q6H PRN PRN PRN Reason: Pain Score 1-10/Temp > 100.7 F Last Admin: 12/23/20 13:20 Dose: 650 mg Documented by: Albuterol Sulfate (Albuterol Sulfate 8 Gm Inhaler (60 Puffs)) 2 puff INHALATION Q4H.RT COLIN Ascorbic Acid (Ascorbic Acid 500 Mg Tablet) 1,000 mg PO BIDCM [facility] Last Admin: 12/23/20 10:36 Dose: 1,000 mg Documented by: Baricitinib (Baricitinib 2 Mg Tablet) 4 mg PO DAILY [facility] Last Admin: 12/23/20 10:36 Dose: 4 mg Documented by: Bupropion HCl (Bupropion (Xl) 300 Mg Tablet.Xl) 300 mg PO DAILY [facility] Last Admin: 12/23/20 10:36 Dose: 300 mg Documented by: Dexamethasone Sodium Phosphate (Dexamethasone 10 Mg/Ml Vial) 6 mg IV DAILY [facility] Last Admin: 12/23/20 10:36 Dose: 6 mg Documented by: Doxazosin Mesylate (Doxazosin 4 Mg Tablet) 6 mg PO QHS [facility] Last Admin: 12/22/20 20:17 Dose: 6 mg Documented by: Enoxaparin Sodium (Enoxaparin 40 Mg/0.4 Ml Syringe) 40 mg SC BID [facility] Last Admin: 12/23/20 10:37 Dose: 40 mg Documented by: Ergocalciferol (Ergocalciferol 1.25 Mg (50, 000 Unit) Capsule) 1.25 mg PO QMONTH COLIN Guaifenesin (Guaifenesin 10 Ml Udc (200mg/10ml)) 10 ml PO Q4H PRN PRN PRN Reason: COUGH Sodium Chloride () 250 mls @ 15 mls/hr IV .[id number] PRN PRN Reason: Saline Flush Sodium Chloride () 250 mls @ 15 mls/hr IV .[id number] PRN PRN Reason: Additional IVPB Infusion Lidocaine (Lidocaine 5% Patch) 2 patch TOPICAL DAILY [facility]; Protocol Last Admin: 12/23/20 10:37 Dose: 2 patch Documented by: Lorazepam (Lorazepam 1 Mg Tablet) 0.5 - 1 mg PO Q6H PRN PRN PRN Reason: ANXIETY/RESTLESSNESS/SLEEP Last Admin: 12/23/20 10:35 Dose: 1 mg Documented by: Lorazepam (Lorazepam 0.5 Mg Tablet) 0.5 - 1 mg PO Q6H PRN PRN PRN Reason: ANXIETY/RESTLESSNESS/SLEEP Last Admin: 12/22/20 21:45 Dose: 1 mg Documented by: Magnesium Chloride (Magnesium Chloride 64 Mg Delay Rel.Tablet) 128 mg PO DAILY [facility] Last Admin: 12/23/20 10:42 Dose: 128 mg Documented by: Melatonin (Melatonin 10 Mg Tablet) 10 mg PO QHS PRN PRN PRN Reason: INSOMNIA Last Admin: 12/22/20 20:17 Dose: 10 mg Documented by: Ondansetron HCl (Ondansetron 4 Mg/2 Ml Vial) 4 mg IV Q8H PRN PRN PRN Reason: NAUSEA/VOMITING Pravastatin Sodium (Pravastatin 20 Mg Tablet) 20 mg PO QHS [facility] Last Admin: 12/22/20 20:17 Dose: 20 mg Documented by: Rizatriptan Benzoate (Rizatriptan Benzoate 10 Mg Tablet) 10 mg PO DAILY PRN PRN Reason: MIGRAINE SYMPTOMS Senna/Docusate Sodium (Senna/Docusate Sodium 1 Tablet) 2 tablet PO BID PRN PRN Reason: Constipation Last Admin: 12/22/20 08:01 Dose: 2 tablet Documented by: Sertraline HCl (Sertraline 100 Mg Tablet) 200 mg PO DAILY [facility] Last Admin: 12/23/20 10:36 Dose: 200 mg Documented by: Sodium Chloride (0.9% Saline Lock 10 Ml Syringe) 10 - 40 ml IV UD PRN PRN Reason: SALINE FLUSH Last Admin: 12/22/20 08:02 Dose: 20 ml Documented by: Sodium Chloride (Sodium Chloride 0.65% 1 [place].Btl) 1 spray NASAL BID [facility] Last Admin: 12/23/20 10:37 Dose: 1 spray Documented by: Throat Lozenges (Benzocaine/Menthol 1 Lozenge) 1 lozenge MUCOUS MEM Q2H PRN PRN PRN Reason: SORE THROAT Last Admin: 12/23/20 13:20 Dose: 1 lozenge Documented by: Zinc Sulfate (Zinc Sulfate (50mg Elemental) 220 Mg Capsule) 220 mg PO TID [facility] Last Admin: 12/23/20 13:20 Dose: 220 mg Documented by: Patient Problems: Active and Suspected Problems (Last Updated 12/19/20 @ 15:[address] Coby Soliman MD) Acute respiratory failure with hypoxia (Acute) Pneumonia due to COVID-19 virus (Acute) Hypoxia (Acute) Medical Necessity - Tobacco Use Smoking Status: Former smoker Assessment/Plan with respect to coronavirus pneumonia he is clinically stable. The patient has not deteriorated in 72 hours. He remains on high flow O2. Just a brief moment off of supplemental O2 to blow his nose however produce saturations well into the low 80s requiring a long phase recovery with higher flow O2. The patient is not to [place] he is not complaining of shortness of breath but is also not active. He is using incentive spirometry. He is responding to supportive care at this point and I agree with Dr. Coats, hospital floor transfer is reasonable. Maintain high flow O2 to keep saturations in the normal range above 90%, continue Decadron [facility] at [facility] anticoagulation . With respect obstructive sleep apnea for now continue bilevel therapy at 18/14 with high flow O2 and to maintain saturation above 90% With respect to anxiety and bipolar disorder I do recommend continued use of Ativan especially as the patient remains confined and anxious Continue anticoagulation throughout the course of the hospitalization the above is presented to his and update on his condition as she is not able to visit All Active Problems (Last Updated 12/19/20 @ 15:[address] Coby Soliman MD) Acute respiratory failure with hypoxia (Acute) Pneumonia due to COVID-19 virus (Acute) Hypoxia (Acute)
[2020-12-23] MEDS: Doxazosin 4 MG Tablet 6 MG PO (20:01)
[2020-12-23] MEDS: MELATONIN 10 MG TABLET PO (20:01)
[2020-12-23] MEDS: Pravastatin 20 MG Tablet PO (20:03)
[2020-12-23] MEDS: LORazepam 0.5 MG Tablet PO (21:42)
[2020-12-24] VITALS (34 sets, daily range): BP systolic 97–150; BP diastolic 61–90; PULSE 65–92; RESP 12–22; TEMP 36.6–36.8; O2SAT 92–96
[2020-12-24 05:22] LABS: Absolute Lymphocyte Count 1.41 X10^3/uL (0.83-4.51); Absolute Neutrophil Count 5.7 X10^3/uL (2.0-7.7); Basophil# 0.05 X10^3/uL; Basophil% 0.6 % (0-1); Eosinophils% 1.2 % (0-5); Hematocrit 44.7 % (40-54); Lymphocyte # 1.41 X10^3/ul (0.83-4.51); Lymphocyte % 16.8 % (19-41); Mean Corp Hgb Conc 33.6 g/dL (32-36); Mean Corpuscular Hgb 28.8 pg (27.0-32.0); Mean Platelet Vol. 9.9 fl (6.2-12.0); Monocyte# 0.77 X10^3/uL; Monocyte% 9.2 % (0-10); NRBC Flagged by Analyzer 0 % (0-5); Neutrophil # 5.74 X10^3/uL (2.7-7.7); Neutrophil % 68.3 % (47-70); Platelet Count 358 K/mm3 (150-450); RBC Distribution Width CV 12.6 % (11.6-14.6); RBC Distribution Width SD 39.8 fl (35.1-43.9); White Blood Count 8.4 K/mm3 (4.4-11.0)
[2020-12-24 05:48] LABS: ALB/GLOB Ratio 0.6 RATIO (0.9-2.4); AST(SGOT) 47 U/L (15-37); Alanine Aminotransfer ALT/SGPT 133 U/L (16-61); Albumin, Serum 2.5 g/dL (3.2-5.0); Alkaline Phosphatase 129 U/L (45-117); Anion Gap 3 (5-15); BUN 21 mg/dL (7-18); BUN/Creat Ratio 22.8 RATIO (10-20); Calcium,Total 8.7 mg/dL (8.5-10.1); Chloride 106 mmol/L (98-107); Creatinine, Serum 0.92 mg/dL (0.70-1.30); EST Glomerular Filtration Rate 95 mL/min (>60); Est Glom Filt Rate - Afr Amer 115 mL/min (>60); Estimated Creatinine Clearance 119.13 ml/min; Globulin 4.5 g/dL (2.2-4.2); Glucose 116 mg/dL (74-106); Potassium 4.4 mmol/L (3.5-5.1); Sodium Level 137 mmol/L (136-145)
[2020-12-24] MEDS: Acetaminophen 325 MG Tablet 650 MG PO (05:53)
--- NOTE | 2020-12-24 06:51 | PN.CC_ITS ---
Assessment & Plan Assessment/Plan (1) Acute respiratory failure with hypoxia: (2) Pneumonia due to COVID-19 virus: PLAN: RECOMMENDATIONS: 1. Continue Decadron (12/30/2020), baricitinib (01/02/2021) and bronchodilators 2. Continue baseline psych and anxiety medications 3. Wean oxygen as tolerated 4. Encourage prone positioning, Acapella and incentive spirometer 5. Okay to leave the intensive care unit from my perspective IMPRESSIONS: 1. Acute hypoxic respiratory failure secondary to Covid pneumonia Patient is over 14 days from initial symptoms. Hopefully he is reaching peak symptomatology in the near future. Patient has been placed on Decadron and baricitinib. We will continue with laboratory monitoring as necessary. Continue vitamin C and zinc. Patient does have some mild increase in LFTs, but not enough to discontinue antibiotics. Cannot exclude the need for intubation, but patient appears to be stabilizing on the current therapy. Continue to diurese as tolerated. Diuresis will be scheduled. Patient has been hemodynamically stable for over 48 hours on current FiO2. Okay to leave the intensive care unit from my perspective 2. JB/unvaccinated status/hearing loss/depression/bipolar/PTSD/obesity Complicates care, management, recovery and prognosis. Patient unable to tolerate baseline AutoPap at this time. Okay to theatric medications. Patient is a full code. Subjective Subjective The patient did okay overnight. Patient with no new complaints this morning. Patient states he continues to have a cough. Patient has been compliant with incentive spirometer, Acapella and prone positioning. Objective Data Objective Data Vital Signs: Vital Signs Temp Pulse Resp BP Pulse Ox 36.6 C 74 20 H 108/66 94 12/24/20 04:00 12/24/20 05:19 12/24/20 05:19 12/24/20 04:00 12/24/20 05:19 Oxygen Flow Rate (L/min) 60 Oxygen Delivery Method Bi-pap Weight: 126.325 kg Body Mass Index (BMI) 36.7 Intake & Output: Intake and Output for Last 24 Hours 12/22/20 12/23/20 12/24/20 23:59 23:59 23:59 Intake Total 1814 / 1989 625 / 625 Output Total 3500 / 3500 5150 / 5150 800 / 800 Balance -1685 / -1510 -4525 / -4525 -800 / -800 Lab / Micro Data Result Diagrams: 12/24/20 05:00 12/24/20 05:00 Labs: Laboratory Results - last 24 hr 12/24/20 05:00: WBC 8.4, RBC 5.20, Hgb 15.0, Hct 44.7, MCV 86.0, MCH 28.8, MCHC 33.6, RDW Std Deviation 39.8, RDW Coeff of Damien 12.6, Plt Count 358, MPV 9.9, Immature Gran % (Auto) 3.900 H, Neut % (Auto) 68.3, Lymph % (Auto) 16.8 L, [place] % (Auto) 9.2, Eos % (Auto) 1.2, Baso % (Auto) 0.6, Absolute Neuts (auto) 5.7, Absolute Lymphs (auto) 1.41, Nucleated RBC % 0 12/24/20 05:00: Sodium Cancelled, Potassium Cancelled, Chloride Cancelled, Carbon Dioxide Cancelled, Anion Gap Cancelled, BUN Cancelled, Creatinine Cancelled, Estim Creat Clear Calc Cancelled, Est GFR (MDRD) Af Amer Cancelled, Est GFR (MDRD) Non-Af Cancelled, BUN/Creatinine Ratio Cancelled, Glucose Cancelled, Calcium Cancelled 12/24/20 05:00: Sodium 137, Potassium 4.4, Chloride 106, Carbon Dioxide 28.0, Anion Gap 3 L, BUN 21 H, Creatinine 0.92, Estim Creat Clear Calc 119.13, Est GFR (MDRD) Af Amer 115, Est GFR (MDRD) Non-Af 95, BUN/Creatinine Ratio 22.8 H, Glucose 116 H, Calcium 8.7, Total Bilirubin 0.40, AST 47 H, ALT 133 H, Alkaline Phosphatase 129 H, Total Protein 7.0, Albumin 2.5 L, Globulin 4.5 H, Albumin/Globulin Ratio 0.6 L Micro: Microbiology 12/19/20 15:25 Sputum, Expectorated/Coughed Gram Stain - Final 12/19/20 15:25 Sputum, Expectorated/Coughed Respiratory Culture - Final Mixed normal respiratory annalee. No Streptococcus pneumoniae, beta-hemolytic Streptococcus or Staphylococcus aureus isolated. 12/19/20 11:23 Blood Culture (Wb) - Left Hand Blood Culture - Preliminary No growth in 48 hours. 12/19/20 10:44 Blood Culture (Wb) - Anticubital Left Blood Culture - Preliminary No growth in 48 hours. 12/19/20 19:00 Urine, Clean Catch Legionella Antigen - Final 12/19/20 19:00 Urine, Clean Catch Streptococcus pneumoniae Antigen (M - Final 12/19/20 15:30 Mucosa - Nasopharyngeal Respiratory Panel (PCR) - Final Physical Exam Const alert, oriented x3 and no apparent distress Constitutional Narrative: On BiPAP during my evaluation General Appearance: cooperative HEENT normocephalic, head/scalp atraumatic and moist oral mucous membranes Eyes PERRL, EOMs intact bilaterally and conjunctivae normal Neck full ROM Chest inspection of chest normal Chest: symmetrical chest wall rise; Negative for crepitus Resp Auscultation: diminished lung sounds; Negative for rales, rhonchi or wheezes Percussion: Negative for dullness Cardio regular rate, regular rhythm, S1 normal heart sound, S2 normal heart sound, no murmurs, no rub and no gallops GI normal to inspection, nondistended, normoactive bowel sounds Extremity no clubbing, cyanosis or edema Skin no rashes or lesions noted Neuro oriented x3 and CN's II-XII intact bilaterally Psych cooperative Appearance: well kempt Mood & Affect: anxious Charges/Coding Visit Charges Inpatient E&M: 59481 Subs Hosp L3
--- NOTE | 2020-12-24 07:13 | PN.HOSP_ITS ---
Subjective Subjective Patient seen and examined. He had no active events overnight. He still coughs, and was on BIPAP overnight. He has otherwise remained hemodynamically stable. REview of systems is otherwise negative. Objective Data Objective Data Vital Signs: Vital Signs Temp Pulse Resp BP Pulse Ox 97.9 F 68 18 115/77 94 12/24/20 04:00 12/24/20 07:00 12/24/20 07:00 12/24/20 07:00 12/24/20 07:00 Oxygen Flow Rate (L/min) 60 Oxygen Delivery Method Bi-pap Weight: 278 lb 8 oz Body Mass Index (BMI) 36.7 Intake & Output: Intake and Output for Last 24 Hours 12/22/20 12/23/20 12/24/20 23:59 23:59 23:59 Intake Total 5 / 1989 625 / 625 Output Total 3500 / 3500 5150 / 5150 800 / 800 Balance -1685 / -1510 -4525 / -4525 -800 / -800 Lab / Micro Data Result Diagrams: 12/24/20 05:00 12/24/20 05:00 Labs: Laboratory Results - last 24 hr 12/24/20 05:00: WBC 8.4, RBC 5.20, Hgb 15.0, Hct 44.7, MCV 86.0, MCH 28.8, MCHC 33.6, RDW Std Deviation 39.8, RDW Coeff of Damien 12.6, Plt Count 358, MPV 9.9, Imm ature Gran % (Auto) 3.900 H, Neut % (Auto) 68.3, Lymph % (Auto) 16.8 L, [place] % (Auto) 9.2, Eos % (Auto) 1.2, Baso % (Auto) 0.6, Absolute Neuts (auto) 5.7, Absolute Lymphs (auto) 1.41, Nucleated RBC % 0 12/24/20 05:00: Sodium Cancelled, Potassium Cancelled, Chloride Cancelled, Carbon Dioxide Cancelled, Anion Gap Cancelled, BUN Cancelled, Creatinine Cancelled, Estim Creat Clear Calc Cancelled, Est GFR (MDRD) Af Amer Cancelled, Est GFR (MDRD) Non-Af Cancelled, BUN/Creatinine Ratio Cancelled, Glucose Cancelled, Calcium Cancelled 12/24/20 05:00: Sodium 137, Potassium 4.4, Chloride 106, Carbon Dioxide 28.0, Anion Gap 3 L, BUN 21 H, Creatinine 0.92, Estim Creat Clear Calc 119.13, Est GFR (MDRD) Af Amer 115, Est GFR (MDRD) Non-Af 95, BUN/Creatinine Ratio 22.8 H, Glucose 116 H, Calcium 8.7, Total Bilirubin 0.40, AST 47 H, ALT 133 H, Alkaline Phosphatase 129 H, Total Protein 7.0, Albumin 2.5 L, Globulin 4.5 H, Albumin/Globulin Ratio 0.6 L Micro: Microbiology 12/19/20 15:25 Sputum, Expectorated/Coughed Gram Stain - Final 12/19/20 15:25 Sputum, Expectorated/Coughed Respiratory Culture - Final Mixed normal respiratory annalee. No Streptococcus pneumoniae, beta-hemolytic Streptococcus or Staphylococcus aureus isolated. 12/19/20 11:23 Blood Culture (Wb) - Left Hand Blood Culture - Preliminary No growth in 48 hours. 12/19/20 10:44 Blood Culture (Wb) - Anticubital Left Blood Culture - Prelimi nary No growth in 48 hours. 12/19/20 19:00 Urine, Clean Catch Legionella Antigen - Final 12/19/20 19:00 Urine, Clean Catch Streptococcus pneumoniae Antigen (M - Fin al 12/19/20 15:30 Mucosa - Nasopharyngeal Respiratory Panel (PCR) - Final Physical Exam Const alert, oriented x3 and no apparent distress Exam Limitations: no limitations HEENT head/scalp atraumatic and moist oral mucous membranes Head and Scalp: normocephalic Eyes PERRL, EOMs intact bilaterally and conjunctivae normal Neck no lymphadenopathy Resp Resp Narrative: diminished breath sounds bibasally, few crackles. On BIPAP Cardio regular rate, regular rhythm, S1 normal heart sound, S2 normal heart sound and no murmurs GI normal to inspection, nondistended, normoactive bowel sounds, soft to palpation and non-tender Extremity normal to inspection, full ROM and no clubbing, cyanosis or edema Peripheral Pulses: Yes pulses 2+ throughout Skin no rashes or lesions noted Neuro oriented x3, CN's II-XII intact bilaterally and moves all extremities Sensorium / Orientation: awake and alert Psych affect normal Assessment & Plan Assessment/Plan (1) Acute respiratory failure with hypoxia: (2) Pneumonia due to COVID-19 virus: (3) Hypoxia: PLAN: #Acute hypoxic respiratory failure due to COVID 19 pneumonia * was on BIPAP overnight. * on decadron and baricitinib * pulmonology on board * lasix prn to maintain euvolemic status * critical care on board * on breathing treatment with bronchodilators * per ID, can be out of isolation today. * #Elevated liver enzymes * AST, ALT and ALP have trended upwards slightly. * will trend. * #Schizophrenia and PTSD * stable. On bupriopion and sertraline * DVT prophylaxis: lovenox 40mg bid Charges/Coding Visit Charges Inpatient E&M: 60159 Subs Hosp L3
[2020-12-24] MEDS: LORazepam 0.5 MG Tablet PO ×3 (08:38→22:10)
[2020-12-24] MEDS: Sertraline 100 MG Tablet 200 MG PO (08:39)
[2020-12-24] MEDS: LURASIDONE HCL 20 MG TABLET 60 MG PO (08:39)
[2020-12-24] MEDS: buPROPion (XL) 300 MG TABLET.XL PO (08:39)
[2020-12-24] MEDS: Ascorbic Acid 500 MG Tablet 1000 MG PO ×2 (08:41→15:31)
[2020-12-24] MEDS: Furosemide 20 MG Tablet PO ×2 (08:41→15:32)
[2020-12-24] MEDS: Magnesium Chloride 64 MG Delay Rel.Tablet 128 MG PO (08:41)
[2020-12-24] MEDS: dexAMETHasone 10 MG/ML Vial 6 MG IV (08:41)
[2020-12-24] MEDS: Enoxaparin 40 MG/0.4 ML Syringe SC ×2 (08:41→22:06)
[2020-12-24] MEDS: Lidocaine 5% Patch 2 PATCH TOPICAL (08:41)
[2020-12-24] MEDS: Sodium Chloride 0.65% 1 SPRAY SPRAY.BTL NASAL ×2 (08:43→22:18)
[2020-12-24] MEDS: Ketorolac 15 MG/ML Vial IV (09:39)
[2020-12-24] MEDS: Pravastatin 20 MG Tablet PO (22:06)
[2020-12-24] MEDS: Doxazosin 4 MG Tablet 6 MG PO (22:06)
[2020-12-25] VITALS (23 sets, daily range): BP systolic 87–132; BP diastolic 62–87; PULSE 63–99; RESP 12–23; TEMP 36.8–37; O2SAT 91–96
--- NOTE | 2020-12-25 05:27 | PCM.PN.INT ---
Assessment & Plan Assessment/Plan (1) Acute respiratory failure with hypoxia: (2) Pneumonia due to COVID-19 virus: PLAN: RECOMMENDATIONS: 1. Continue Decadron (12/30/2020), baricitinib (01/02/2021) and bronchodilators. 2. Continue baseline psych and anxiety medications. 3. Wean oxygen as tolerated. 4. Encourage prone positioning, Acapella and incentive spirometer. IMPRESSIONS: 1. Acute hypoxic respiratory failure secondary to Covid pneumonia The patient is over 14 days from initial symptoms. The patient is improving from a respiratory perspective. Plan to continue supportive measures including supplemental oxygen to maintain saturations at or above 90%. Continue Decadron and baricitinib to complete treatment courses. Continue prophylactic Lovenox and IV diuretic therapy as tolerated by hemodynamics and renal function. 2. JB/unvaccinated status/hearing loss/depression/bipolar/PTSD/obesity Complicates care, management, recovery and prognosis. The patient is unable to tolerate baseline AutoPap at this time. This note was generated with [employer] dictation software. It may contain incorrect words, spelling, and punctuation that were not noted in checking the note before signing. Subjective Subjective The patient was seen and examined at the bedside this morning. Events from the last 24 hours have been reviewed. The patient is currently afebrile, hemodynamically stable and maintaining appropriate oxygen saturations on BiPAP with an FiO2 requirement of 55%. Yesterday, the patient was able to be maintained on heated high flow throughout the day. He is currently documented to be overall net -1.3 L for the hospitalization. The patient remains on Decadron, baricitinib and Lovenox. Objective Data Objective Data The patient's most recent lab work, culture data and imaging studies have all been personally reviewed. Vital Signs: Vital Signs Temp Pulse Resp BP Pulse Ox 98.6 F 66 20 H 116/73 94 12/25/20 04:00 12/25/20 04:00 12/25/20 04:00 12/25/20 04:00 12/25/20 04:00 Oxygen Flow Rate (L/min) 60 Oxygen Delivery Method Bi-pap Weight: 126.325 kg Body Mass Index (BMI) 36.7 Intake & Output: Intake and Output for Last 24 Hours 11/15/21 11/16/21 11/17/21 23:59 23:59 23:59 Intake Total 625 / 625 360 / 360 Output Total 5150 / 5150 3775 / 3775 1700 / 1700 Balance -4525 / -4525 -3415 / -3415 -1700 / -1700 Lab / Micro Data Attestation: I reviewed the patient's lab results. Result Diagrams: 12/26/20 06:10 12/26/20 06:10 Labs: Laboratory Results - last 24 hr 12/24/20 05:00: Sodium Cancelled, Potassium Cancelled, Chloride Cancelled, Carbon Dioxide Cancelled, Anion Gap Cancelled, BUN Cancelled, Creatinine Cancelled, Estim Creat Clear Calc Cancelled, Est GFR (MDRD) Af Amer Cancelled, Est GFR (MDRD) Non-Af Cancelled, BUN/Creatinine Ratio Cancelled, Glucose Cancelled, Calcium Cancelled 12/24/20 05:00: Sodium 137, Potassium 4.4, Chloride 106, Carbon Dioxide 28.0, Anion Gap 3 L, BUN 21 H, Creatinine 0.92, Estim Creat Clear Calc 119.13, Est GFR (MDRD) Af Amer 115, Est GFR (MDRD) Non-Af 95, BUN/Creatinine Ratio 22.8 H, Glucose 116 H, Calcium 8.7, Total Bilirubin 0.40, AST 47 H, ALT 133 H, Alkaline Phosphatase 129 H, Total Protein 7.0, Albumin 2.5 L, Globulin 4.5 H, Albumin/Globulin Ratio 0.6 L Micro: Microbiology 12/19/20 10:44 Blood Culture (Wb) - Anticubital Left Blood Culture - Final No growth in 5 days. 12/19/20 11:23 Blood Culture (Wb) - Left Hand Blood Culture - Final No growth in 5 days. 12/19/20 15:25 Sputum, Expectorated/Coughed Gram Stain - Final 12/19/20 15:25 Sputum, Expectorated/Coughed Respiratory Culture - Final Mixed normal respiratory annalee. No Streptococcus pneumoniae, beta-hemolytic Streptococcus or Staphylococcus aureus isolated. 12/19/20 19:00 Urine, Clean Catch Legionella Antigen - Final 12/19/20 19:00 Urine, Clean Catch Streptococcus pneumoniae Antigen (M - Final 12/19/20 15:30 Mucosa - Nasopharyngeal Respiratory Panel (PCR) - Final Physical Exam Const alert and no apparent distress Constitutional Narrative: Tolerating heated high flow oxygen currently. General Appearance: cooperative Nutritional Appearance: obese HEENT normocephalic, head/scalp atraumatic and moist oral mucous membranes Eyes PERRL, EOMs intact bilaterally and conjunctivae normal Neck supple General: trachea midline Chest inspection of chest normal Resp Auscultation: diminished lung sounds; Negative for rales, rhonchi or wheezes Cardio regular rate and regular rhythm GI normal to inspection, nondistended, normoactive bowel sounds Extremity no clubbing, cyanosis or edema Skin no rashes or lesions noted Neuro CN's II-XII intact bilaterally, moves all extremities and no focal motor deficits Psych cooperative and affect normal Charges/Coding Visit Charges Inpatient E&M: 17887 Subs Hosp L2
[2020-12-25 06:35] LABS: Absolute Lymphocyte Count 1.76 X10^3/uL (0.83-4.51); Basophil# 0.07 X10^3/uL; Basophil% 0.7 % (0-1); Eosinophil# 0.08 X10^3/uL; Eosinophils% 0.8 % (0-5); Hematocrit 46.6 % (40-54); Hemoglobin 15.4 g/dL (13.0-16.5); Lymphocyte # 1.76 X10^3/ul (0.83-4.51); Mean Corpuscular Hgb 28.7 pg (27.0-32.0); Mean Corpuscular Volume 86.9 fL (80-94); Mean Platelet Vol. 9.9 fl (6.2-12.0); Monocyte# 0.99 X10^3/uL; Monocyte% 9.6 % (0-10); NRBC Flagged by Analyzer 0 % (0-5); Neutrophil # 7.02 X10^3/uL (2.7-7.7); Neutrophil % 67.8 % (47-70); Platelet Count 432 K/mm3 (150-450); RBC Distribution Width CV 12.6 % (11.6-14.6); RBC Distribution Width SD 39.8 fl (35.1-43.9); Red Blood Count 5.36 M/mm3 (4.6-6.2); White Blood Count 10.3 K/mm3 (4.4-11.0)
[2020-12-25 06:57] LABS: Anion Gap 5 (5-15); BUN 20 mg/dL (7-18); BUN/Creat Ratio 22.5 RATIO (10-20); Calcium,Total 8.8 mg/dL (8.5-10.1); Chloride 104 mmol/L (98-107); Creatinine, Serum 0.89 mg/dL (0.70-1.30); EST Glomerular Filtration Rate 99 mL/min (>60); Est Glom Filt Rate - Afr Amer 120 mL/min (>60); Estimated Creatinine Clearance 123.15 ml/min; Glucose 113 mg/dL (74-106); Potassium 4.4 mmol/L (3.5-5.1); Sodium Level 136 mmol/L (136-145)
[2020-12-25] MEDS: Ascorbic Acid 500 MG Tablet 1000 MG PO ×2 (08:39→16:41)
--- NOTE | 2020-12-25 09:57 | PN.HOSP_ITS ---
Subjective Subjective Patient seen and examined. He has no complaints, and remains on AirVo. Review of systems otherwise negative. He has remained hemodynamically stable. Objective Data Objective Data Vital Signs: Vital Signs Temp Pulse Resp BP Pulse Ox 98.2 F 63 17 87/67 L 94 12/25/20 08:00 12/25/20 08:00 12/25/20 08:00 12/25/20 08:00 12/25/20 08:00 Oxygen Flow Rate (L/min) 60 Oxygen Delivery Method Airvo Weight: 279 lb 9.6 oz Body Mass Index (BMI) 36.7 Intake & Output: Intake and Output for Last 24 Hours 12/23/20 12/24/20 12/25/20 23:59 23:59 23:59 Intake Total 625 / 625 360 / 360 Output Total 5150 / 5150 3775 / 3775 2024 / 2024 Balance -4525 / -4525 -3415 / -3415 -2024 / -2024 Lab / Micro Data Result Diagrams: 12/25/20 05:15 12/25/20 05:15 Labs: Laboratory Results - last 24 hr 12/25/20 05:15: WBC 10.3, RBC 5.36, Hgb 15.4, Hct 46.6, MCV 86.9, MCH 28.7, MCHC 33.0, RDW Std Deviation 39.8, RDW Coeff of Damien 12.6, Plt Count 432, MPV 9.9, Immature Gran % (Auto) 4.100 H, Neut % (Auto) 67.8, Lymph % (Auto) 17.0 L, [place] % (Auto) 9.6, Eos % (Auto) 0.8, Baso % (Auto) 0.7, Absolute Neuts (auto) 7.0, Absolute Lymphs (auto) 1.76, Nucleated RBC % 0 12/25/20 05:15: Sodium 136, Potassium 4.4, Chloride 104, Carbon Dioxide 27.0, Anion Gap 5, BUN 20 H, Creatinine 0.89, Estim Creat Clear Calc 123.15, Est GFR (MDRD) Af Amer 120, Est GFR (MDRD) Non-Af 99, BUN/Creatinine Ratio 22.5 H, Glucose 113 H, Calcium 8.8 Micro: Microbiology 12/19/20 10:44 Blood Culture (Wb) - Anticubital Left Blood Culture - Final No growth in 5 days. 12/19/20 11:23 Blood Culture (Wb) - Left Hand Blood Culture - Final No growth in 5 days. 12/19/20 15:25 Sputum, Expectorated/Coughed Gram Stain - Final 12/19/20 15:25 Sputum, Expectorated/Coughed Respiratory Culture - Final Mixed normal respiratory annalee. No Streptococcus pneumoniae, beta-hemolytic Streptococcus or Staphylococcus aureus isolated. 12/19/20 19:00 Urine, Clean Catch Legionella Antigen - Final 12/19/20 19:00 Urine, Clean Catch Streptococcus pneumoniae Antigen (M - Final 12/19/20 15:30 Mucosa - Nasopharyngeal Respiratory Panel (PCR) - Final Physical Exam Const alert, oriented x3 and no apparent distress Exam Limitations: no limitations HEENT head/scalp atraumatic and moist oral mucous membranes Head and Scalp: normocephalic Eyes PERRL, EOMs intact bilaterally and conjunctivae normal Neck no lymphadenopathy Resp Resp Narrative: diminished breath sounds bibasally, few crackles. On AirVo Cardio regular rate, regular rhythm, S1 normal heart sound, S2 normal heart sound and no murmurs GI normal to inspection, nondistended, normoactive bowel sounds, soft to palpation and non-tender Extremity normal to inspection, full ROM and no clubbing, cyanosis or edema Peripheral Pulses: Yes pulses 2+ throughout Skin no rashes or lesions noted Neuro oriented x3, CN's II-XII intact bilaterally and moves all extremities Sensorium / Orientation: awake and alert Psych affect normal Assessment & Plan Assessment/Plan (1) Acute respiratory failure with hypoxia: (2) Pneumonia due to COVID-19 virus: (3) Hypoxia: PLAN: #Acute hypoxic respiratory failure due to COVID 19 pneumonia * was on BIPAP overnight. now on AirVo * on decadron and baricitinib * pulmonology on board * lasix prn to maintain euvolemic status * critical care on board * on breathing treatment with bronchodilators * now out of isolation * #Elevated liver enzymes * AST, ALT and ALP have trended upwards slightly. * will trend. * #Schizophrenia and PTSD * stable. On bupriopion and sertraline * DVT prophylaxis: lovenox 40mg bid Transfer out of ICU to med surg with telemetry. Charges/Coding Visit Charges Inpatient E&M: 46630 Subs Hosp L2
[2020-12-25] MEDS: LURASIDONE HCL 20 MG TABLET 60 MG PO (10:26)
[2020-12-25] MEDS: Lidocaine 5% Patch 2 PATCH TOPICAL (10:26)
[2020-12-25] MEDS: buPROPion (XL) 300 MG TABLET.XL PO (10:27)
[2020-12-25] MEDS: Sertraline 100 MG Tablet 200 MG PO (10:27)
[2020-12-25] MEDS: Furosemide 20 MG Tablet PO ×2 (10:27→16:42)
[2020-12-25] MEDS: Magnesium Chloride 64 MG Delay Rel.Tablet 128 MG PO (10:28)
[2020-12-25] MEDS: Enoxaparin 40 MG/0.4 ML Syringe SC ×2 (10:29→22:30)
[2020-12-25] MEDS: dexAMETHasone 10 MG/ML Vial 6 MG IV (10:29)
[2020-12-25] MEDS: Sodium Chloride 0.65% 1 SPRAY SPRAY.BTL NASAL (10:29)
[2020-12-25] MEDS: 0.9% Saline Lock 10 ML Syringe IV (10:31)
[2020-12-25] MEDS: LORazepam 0.5 MG Tablet PO ×3 (10:31→22:32)
--- NOTE | 2020-12-25 14:03 | CASEMGMT ---
Social Work SW placed phone call to pt room to discuss needs for discharge as SW received referral for CM last week. Pt denies any needs or resources at this time. SW informed pt that SW will remain available should needs arise. SUDHAKAR Carrillo
[2020-12-25] MEDS: BENZOCAINE/MENTHOL 1 LOZENGE MUCOUS MEM ×2 (14:43→22:32)
--- NOTE | 2020-12-25 14:58 | CHAPLAIN ---
Type of Pastoral Visit _x__ Initial Visit ___ Follow-up Visit ___ On-call Visit ___ General Patient Visit ___ Spiritual Assessment ___ Family Conference ___ Bereavement ___ Rapid Response ___ Code Blue ___ Other (describe below) Pastoral Care Referral From _x__ Patient ___ Family ___ Nurse ___ Physician ___ Sanitarian Inspector ___ Ornamental Brick Installer ___ Other (describe below) Sacrament/Intervention _x__ Active listening ___ Anointing ___ Pentecostalism ___ Bereavement ___ Communion _x__ Julia exploration ___ _x__ Life review _x__ Prayer ___ Reconciliation ___ Sacrament of Sick _x__ Supportive presence ___ Wedding ___ Other (describe below) Pastoral Comments
--- NOTE | 2020-12-25 17:42 | PCM.PROGNOTE ---
Subjective: no chest pain, no complaints of shortness of breath, he has walked around his room, he denies any headache, there is no nausea or GI symptoms, the patient reports dry cough but no sputum and no wheezing. He has been doing incentive spirometry and is currently on 7 L oxygen saturating at 95% - Physical Exam Vitals/I&O's: Vital Signs Temp Pulse Resp BP Pulse Ox 98.5 F 99 20 H 124/64 H 94 12/25/20 16:30 12/25/20 16:30 12/25/20 16:30 12/25/20 16:30 12/25/20 16:30 Oxygen Flow Rate (L/min) 7 Oxygen Delivery Method Nasal Cannula Weight: 126.824 kg Body Mass Index (BMI) 36.7 Intake and Output for Last 24 Hours 12/23/20 12/24/20 12/25/20 23:59 23:59 23:59 Intake Total 625 / 625 360 / 360 1000 / 1000 Output Total 5150 / 5150 3775 / 3775 3300 / 3300 Balance -4525 / -4525 -3415 / -3415 -2300 / -2300 General: Alert, Oriented x3, Cooperative HEENT: Atraumatic, PERRLA, EOMI, Normocephalic Oral: - - dry mucous membranes, no epistaxis Neck: Supple, No JVD, Negative Carotid Bruits Lungs: - - bibasilar fine rales mid chest upward, the bases are clear, posteriorly and laterally, no wheeze, better air movement, no wheezing, some cough with breathing, egophony persists in the mid chest posteriorly bilaterally Cardiovascular: Regular rate, No murmurs Abdomen: Bowel Sounds Present, Soft, Non Tender Extremities: No edema, Capillary Refill Less than 3 Seconds Skin: No rashes, No breakdown Musculoskeletal: No Tenderness to Palpation of Joints or Extremities Neurological: Cranial nerves II-XII grossly intact Psych/Mental Status: Normal Affect, Appropriate Microbiology Past 72 Hours 12/19/20 10:44 Blood Culture (Wb) - Anticubital Left Blood Culture - Final No growth in 5 days. 12/19/20 11:23 Blood Culture (Wb) - Left Hand Blood Culture - Final No growth in 5 days. Laboratory Results 12/25/20 05:15: WBC 10.3, RBC 5.36, Hgb 15.4, Hct 46.6, MCV 86.9, MCH 28.7, MCHC 33.0, RDW Std Deviation 39.8, RDW Coeff of Damien 12.6, Plt Count 432, MPV 9.9, Immature Gran % (Auto) 4.100 H, Neut % (Auto) 67.8, Lymph % (Auto) 17.0 L, [place] % (Auto) 9.6, Eos % (Auto) 0.8, Baso % (Auto) 0.7, Absolute Neuts (auto) 7.0, Absolute Lymphs (auto) 1.76, Nucleated RBC % 0 12/25/20 05:15: Sodium 136, Potassium 4.4, Chloride 104, Carbon Dioxide 27.0, Anion Gap 5, BUN 20 H, Creatinine 0.89, Estim Creat Clear Calc 123.15, Est GFR (MDRD) Af Amer 120, Est GFR (MDRD) Non-Af 99, BUN/Creatinine Ratio 22.5 H, Glucose 113 H, Calcium 8.8 Current Medications Acetaminophen (Acetaminophen 325 Mg Tablet) 650 mg PO Q6H PRN PRN PRN Reason: Pain Score 1-10/Temp > 100.7 F Last Admin: 12/24/20 05:53 Dose: 650 mg Documented by: Albuterol Sulfate (Albuterol Sulfate 8 Gm Inhaler (60 Puffs)) 2 puff INHALATION Q4H.RT COLIN Ascorbic Acid (Ascorbic Acid 500 Mg Tablet) 1,000 mg PO BIDCM [facility] Last Admin: 12/25/20 16:41 Dose: 1,000 mg Documented by: Baricitinib (Baricitinib 2 Mg Tablet) 4 mg PO DAILY [facility] Last Admin: 12/25/20 10:27 Dose: 4 mg Documented by: Bupropion HCl (Bupropion (Xl) 300 Mg Tablet.Xl) 300 mg PO DAILY [facility] Last Admin: 12/25/20 10:27 Dose: 300 mg Documented by: Dexamethasone Sodium Phosphate (Dexamethasone 10 Mg/Ml Vial) 6 mg IV DAILY [facility] Stop: 12/28/20 10:01 Last Admin: 12/25/20 10:29 Dose: 6 mg Documented by: Doxazosin Mesylate (Doxazosin 4 Mg Tablet) 6 mg PO QHS [facility] Last Admin: 12/24/20 22:06 Dose: 6 mg Documented by: Enoxaparin Sodium (Enoxaparin 40 Mg/0.4 Ml Syringe) 40 mg SC BID [facility] Last Admin: 12/25/20 10:29 Dose: 40 mg Documented by: Ergocalciferol (Ergocalciferol 1.25 Mg (50, 000 Unit) Capsule) 1.25 mg PO QMONTH [facility] Furosemide (Furosemide 20 Mg Tablet) 20 mg PO BIDLX [facility] Last Admin: 12/25/20 16:42 Dose: 20 mg Documented by: Guaifenesin (Guaifenesin 10 Ml Udc (200mg/10ml)) 10 ml PO Q4H PRN PRN PRN Reason: COUGH Sodium Chloride () 250 mls @ 15 mls/hr IV .[id number] PRN PRN Reason: Saline Flush Sodium Chloride () 250 mls @ 15 mls/hr IV .[id number] PRN PRN Reason: Additional IVPB Infusion Lidocaine (Lidocaine 5% Patch) 2 patch TOPICAL DAILY [facility]; Protocol Last Admin: 12/25/20 10:26 Dose: 2 patch Documented by: Lorazepam (Lorazepam 1 Mg Tablet) 0.5 - 1 mg PO Q6H PRN PRN PRN Reason: ANXIETY/RESTLESSNESS/SLEEP Last Admin: 12/23/20 10:35 Dose: 1 mg Documented by: Lorazepam (Lorazepam 0.5 Mg Tablet) 0.5 - 1 mg PO Q6H PRN PRN PRN Reason: ANXIETY/RESTLESSNESS/SLEEP Last Admin: 12/25/20 16:38 Dose: 0.5 mg Documented by: Magnesium Chloride (Magnesium Chloride 64 Mg Delay Rel.Tablet) 128 mg PO DAILY [facility] Last Admin: 12/25/20 10:28 Dose: 128 mg Documented by: Melatonin (Melatonin 10 Mg Tablet) 10 mg PO QHS PRN PRN PRN Reason: INSOMNIA Last Admin: 12/23/20 20:01 Dose: 10 mg Documented by: Ondansetron HCl (Ondansetron 4 Mg/2 Ml Vial) 4 mg IV Q8H PRN PRN PRN Reason: NAUSEA/VOMITING Pravastatin Sodium (Pravastatin 20 Mg Tablet) 20 mg PO QHS [facility] Last Admin: 12/24/20 22:06 Dose: 20 mg Documented by: Rizatriptan Benzoate (Rizatriptan Benzoate 10 Mg Tablet) 10 mg PO DAILY PRN PRN Reason: MIGRAINE SYMPTOMS Senna/Docusate Sodium (Senna/Docusate Sodium 1 Tablet) 2 tablet PO BID PRN PRN Reason: Constipation Last Admin: 12/22/20 08:01 Dose: 2 tablet Documented by: Sertraline HCl (Sertraline 100 Mg Tablet) 200 mg PO DAILY [facility] Last Admin: 12/25/20 10:27 Dose: 200 mg Documented by: Sodium Chloride (0.9% Saline Lock 10 Ml Syringe) 10 - 40 ml IV UD PRN PRN Reason: SALINE FLUSH Last Admin: 12/25/20 10:31 Dose: 20 ml Documented by: Sodium Chloride (Sodium Chloride 0.65% 1 [place].Btl) 1 spray NASAL BID [facility] Last Admin: 12/25/20 10:29 Dose: 1 spray Documented by: Throat Lozenges (Benzocaine/Menthol 1 Lozenge) 1 lozenge MUCOUS MEM Q2H PRN PRN PRN Reason: SORE THROAT Last Admin: 12/25/20 14:43 Dose: 1 lozenge Documented by: Zinc Sulfate (Zinc Sulfate (50mg Elemental) 220 Mg Capsule) 220 mg PO TID [facility] Last Admin: 12/25/20 16:38 Dose: 220 mg Documented by: Patient Problems: Active and Suspected Problems (Last Updated 12/19/20 @ 15:[address] Coby Soliman MD) Acute respiratory failure with hypoxia (Acute) Pneumonia due to COVID-19 virus (Acute) Hypoxia (Acute) Medical Necessity - Tobacco Use Smoking Status: Former smoker Assessment/Plan with respect to his respiratory failure, the patient has gradually improved, there has been little setback, he remains on Decadron, He remains on incentive spirometry and aerosol treatments, Oxygen saturations are improved and the patient is now on 7 L oxygen. Continue with the above aggressive pulmonary toilet, ambulation, early and aggressive, pronating when able to tolerate it With respect to JB, continue with bilevel therapy and bleed supplemental O2 at 7 L The patient may bring his own device in and use his own mask, he uses a nasal interface and is much more comfortable I would maintain continuous oxygen measurements for now I suggest continued anticoagulation as the patient is sedentary All Active Problems (Last Updated 12/19/20 @ 15:[address] Coby Soliman MD) Acute respiratory failure with hypoxia (Acute) Pneumonia due to COVID-19 virus (Acute) Hypoxia (Acute)
[2020-12-25] MEDS: Pravastatin 20 MG Tablet PO (22:32)
[2020-12-25] MEDS: Doxazosin 4 MG Tablet 6 MG PO (22:32)
[2020-12-25] MEDS: MELATONIN 10 MG TABLET PO (22:45)
[2020-12-26] VITALS (17 sets, daily range): BP systolic 110–149; BP diastolic 72–90; PULSE 66–102; RESP 12–20; TEMP 36.5–36.9; O2SAT 90–96
[2020-12-26 06:18] LABS: Absolute Lymphocyte Count 2.08 X10^3/uL (0.83-4.51); Absolute Neutrophil Count 7.2 X10^3/uL (2.0-7.7); Basophil# 0.04 X10^3/uL; Basophil% 0.4 % (0-1); Eosinophil# 0.08 X10^3/uL; Eosinophils% 0.7 % (0-5); Hematocrit 46.8 % (40-54); Hemoglobin 15.1 g/dL (13.0-16.5); Lymphocyte # 2.08 X10^3/ul (0.83-4.51); Lymphocyte % 19.1 % (19-41); Mean Corp Hgb Conc 32.3 g/dL (32-36); Mean Corpuscular Hgb 28.2 pg (27.0-32.0); Mean Corpuscular Volume 87.3 fL (80-94); Mean Platelet Vol. 9.5 fl (6.2-12.0); Monocyte# 1.07 X10^3/uL; Monocyte% 9.8 % (0-10); NRBC Flagged by Analyzer 0 % (0-5); Neutrophil # 7.21 X10^3/uL (2.7-7.7); Neutrophil % 66.1 % (47-70); Platelet Count 451 K/mm3 (150-450); RBC Distribution Width CV 12.6 % (11.6-14.6); RBC Distribution Width SD 40.2 fl (35.1-43.9); Red Blood Count 5.36 M/mm3 (4.6-6.2); White Blood Count 10.9 K/mm3 (4.4-11.0)
[2020-12-26 06:32] LABS: Anion Gap 6 (5-15); BUN 24 mg/dL (7-18); Chloride 103 mmol/L (98-107); Creatinine, Serum 0.89 mg/dL (0.70-1.30); EST Glomerular Filtration Rate 99 mL/min (>60); Est Glom Filt Rate - Afr Amer 120 mL/min (>60); Estimated Creatinine Clearance 123.15 ml/min; Glucose 109 mg/dL (74-106); Potassium 4.3 mmol/L (3.5-5.1); Sodium Level 136 mmol/L (136-145)
[2020-12-26] MEDS: Ascorbic Acid 500 MG Tablet 1000 MG PO ×2 (08:08→16:58)
[2020-12-26] MEDS: Acetaminophen 325 MG Tablet 650 MG PO (08:13)
--- NOTE | 2020-12-26 08:48 | PN.CC_ITS ---
Assessment & Plan Assessment/Plan (1) Acute respiratory failure with hypoxia: (2) Pneumonia due to COVID-19 virus: PLAN: RECOMMENDATIONS: 1. Continue Decadron (12/30/2020), baricitinib (01/02/2021) and bronchodilators. 2. Continue baseline psych and anxiety medications. 3. Wean oxygen as tolerated. 4. Encourage prone positioning, Acapella and incentive spirometer. IMPRESSIONS: 1. Acute hypoxic respiratory failure secondary to Covid pneumonia The patient is over 14 days from initial symptoms. The patient is improving from a respiratory perspective. Plan to continue supportive measures including supplemental oxygen to maintain saturations at or above 90%. Continue Decadron and baricitinib to complete treatment courses. Continue prophylactic Lovenox and IV diuretic therapy as tolerated by hemodynamics and renal function. 2. JB/unvaccinated status/hearing loss/depression/bipolar/PTSD/obesity Complicates care, management, recovery and prognosis. The patient is unable to tolerate baseline AutoPap at this time. This note was generated with [employer] dictation software. It may contain incorrect words, spelling, and punctuation that were not noted in checking the note before signing. Subjective Subjective The patient was seen and examined at the bedside this morning. Events from the last 24 hours have been reviewed. The patient is currently afebrile, hemodynamically stable and maintaining appropriate oxygen saturations with an FIO2 requirement of 55%. He is currently documented to be overall net -1.7 L for the hospitalization. The patient remains on Decadron, baricitinib and Lovenox. Objective Data Objective Data The patient's most recent lab work, culture data and imaging studies have all been personally reviewed. Vital Signs: Vital Signs Temp Pulse Resp BP Pulse Ox 97.8 F 69 18 110/72 96 12/26/20 08:10 12/26/20 08:10 12/26/20 08:10 12/26/20 08:10 12/26/20 08:10 Oxygen Flow Rate (L/min) 7 Oxygen Delivery Method Bi-pap Weight: 126.507 kg Body Mass Index (BMI) 36.7 Intake & Output: Intake and Output for Last 24 Hours 12/24/20 12/25/20 12/26/20 23:59 23:59 23:59 Intake Total 360 / 360 1000 / 1012 Output Total 3775 / 3775 3300 / 4900 3000 / 3000 Balance -3415 / -3415 -2300 / -3888 -2988 / -2988 Lab / Micro Data Attestation: I reviewed the patient's lab results. Result Diagrams: 12/26/20 06:10 12/26/20 06:10 Labs: Laboratory Results - last 24 hr 12/26/20 06:10: WBC 10.9, RBC 5.36, Hgb 15.1, Hct 46.8, MCV 87.3, MCH 28.2, MCHC 32.3, RDW Std Deviation 40.2, RDW Coeff of Damien 12.6, Plt Count 451 H, MPV 9.5, Immature Gran % (Auto) 3.900 H, Neut % (Auto) 66.1, Lymph % (Auto) 19.1, [place] % (Auto) 9.8, Eos % (Auto) 0.7, Baso % (Auto) 0.4, Absolute Neuts (auto) 7.2, Absolute Lymphs (auto) 2.08, Nucleated RBC % 0 12/26/20 06:10: Sodium 136, Potassium 4.3, Chloride 103, Carbon Dioxide 27.0, Anion Gap 6, BUN 24 H, Creatinine 0.89, Estim Creat Clear Calc 123.15, Est GFR (MDRD) Af Amer 120, Est GFR (MDRD) Non-Af 99, BUN/Creatinine Ratio 27.0 H, Glucose 109 H, Calcium 9.0 Micro: Microbiology 12/19/20 10:44 Blood Culture (Wb) - Anticubital Left Blood Culture - Final No growth in 5 days. 12/19/20 11:23 Blood Culture (Wb) - Left Hand Blood Culture - Final No growth in 5 days. 12/19/20 15:25 Sputum, Expectorated/Coughed Gram Stain - Final 12/19/20 15:25 Sputum, Expectorated/Coughed Respiratory Culture - Final Mixed normal respiratory annalee. No Streptococcus pneumoniae, beta-hemolytic Streptococcus or Staphylococcus aureus isolated. 12/19/20 19:00 Urine, Clean Catch Legionella Antigen - Final 12/19/20 19:00 Urine, Clean Catch Streptococcus pneumoniae Antigen (M - Final 12/19/20 15:30 Mucosa - Nasopharyngeal Respiratory Panel (PCR) - Final Physical Exam Const alert and no apparent distress Constitutional Narrative: Tolerating heated high flow oxygen currently. General Appearance: cooperative Nutritional Appearance: obese HEENT normocephalic, head/scalp atraumatic and moist oral mucous membranes Eyes PERRL, EOMs intact bilaterally and conjunctivae normal Neck supple General: trachea midline Chest inspection of chest normal Resp Auscultation: diminished lung sounds; Negative for rales, rhonchi or wheezes Cardio regular rate and regular rhythm GI normal to inspection, nondistended, normoactive bowel sounds Extremity no clubbing, cyanosis or edema Skin no rashes or lesions noted Neuro CN's II-XII intact bilaterally, moves all extremities and no focal motor deficits Psych cooperative and affect normal Charges/Coding Visit Charges Inpatient E&M: 01141 Subs Hosp L2
[2020-12-26] MEDS: Magnesium Chloride 64 MG Delay Rel.Tablet 128 MG PO (09:43)
[2020-12-26] MEDS: Enoxaparin 40 MG/0.4 ML Syringe SC ×2 (09:43→21:30)
[2020-12-26] MEDS: dexAMETHasone 10 MG/ML Vial 6 MG IV (09:43)
[2020-12-26] MEDS: Sertraline 100 MG Tablet 200 MG PO (09:44)
[2020-12-26] MEDS: buPROPion (XL) 300 MG TABLET.XL PO (09:44)
[2020-12-26] MEDS: Furosemide 20 MG Tablet PO ×2 (09:45→16:58)
[2020-12-26] MEDS: Lidocaine 5% Patch 2 PATCH TOPICAL (09:45)
[2020-12-26] MEDS: Sodium Chloride 0.65% 1 SPRAY SPRAY.BTL NASAL ×2 (09:54→21:27)
--- NOTE | 2020-12-26 11:43 | PN.HOSP_ITS ---
Subjective Subjective Patient seen and examined. He was on BiPAP at time of review. He had no new complaints and has remained hemodynamically stable otherwise. Review of systems otherwise negative. Objective Data Objective Data Vital Signs: Vital Signs Temp Pulse Resp BP Pulse Ox 97.8 F 69 18 110/72 96 12/26/20 08:10 12/26/20 08:10 12/26/20 08:10 12/26/20 08:10 12/26/20 08:10 Oxygen Flow Rate (L/min) 7 Oxygen Delivery Method Bi-pap Weight: 278 lb 14.4 oz Body Mass Index (BMI) 36.7 Intake & Output: Intake and Output for Last 24 Hours 12/24/20 12/25/20 12/26/20 23:59 23:59 23:59 Intake Total 360 / 360 1000 / 1012 Output Total 3775 / 3775 3300 / 4900 3000 / 3000 Balance -3415 / -3415 -2300 / -3888 -2988 / -2988 Lab / Micro Data Result Diagrams: 12/26/20 06:10 12/26/20 06:10 Labs: Laboratory Results - last 24 hr 12/26/20 06:10: WBC 10.9, RBC 5.36, Hgb 15.1, Hct 46.8, MCV 87.3, MCH 28.2, MCHC 32.3, RDW Std Deviation 40.2, RDW Coeff of Damien 12.6, Plt Count 451 H, MPV 9.5, Immature Gran % (Auto) 3.900 H, Neut % (Auto) 66.1, Lymph % (Auto) 19.1, [place] % (Auto) 9.8, Eos % (Auto) 0.7, Baso % (Auto) 0.4, Absolute Neuts (auto) 7.2, Absolute Lymphs (auto) 2.08, Nucleated RBC % 0 12/26/20 06:10: Sodium 136, Potassium 4.3, Chloride 103, Carbon Dioxide 27.0, Anion Gap 6, BUN 24 H, Creatinine 0.89, Estim Creat Clear Calc 123.15, Est GFR (MDRD) Af Amer 120, Est GFR (MDRD) Non-Af 99, BUN/Creatinine Ratio 27.0 H, Glucose 109 H, Calcium 9.0 Micro: Microbiology 12/19/20 10:44 Blood Culture (Wb) - Anticubital Left Blood Culture - Final No growth in 5 days. 12/19/20 11:23 Blood Culture (Wb) - Left Hand Blood Culture - Final No growth in 5 days. 12/19/20 15:25 Sputum, Expectorated/Coughed Gram Stain - Final 12/19/20 15:25 Sputum, Expectorated/Coughed Respiratory Culture - Final Mixed normal respiratory annalee. No Streptococcus pneumoniae, beta-hemolytic Streptococcus or Staphylococcus aureus isolated. 12/19/20 19:00 Urine, Clean Catch Legionella Antigen - Final 12/19/20 19:00 Urine, Clean Catch Streptococcus pneumoniae Antigen (M - Final 12/19/20 15:30 Mucosa - Nasopharyngeal Respiratory Panel (PCR) - Final Physical Exam Const alert, oriented x3 and no apparent distress Exam Limitations: no limitations HEENT head/scalp atraumatic and moist oral mucous membranes Head and Scalp: normocephalic Eyes PERRL, EOMs intact bilaterally and conjunctivae normal Neck no lymphadenopathy Resp Resp Narrative: diminished breath sounds bibasally, few crackles. On BIPAP at time of review this morning Cardio regular rate, regular rhythm, S1 normal heart sound, S2 normal heart sound and no murmurs GI normal to inspection, nondistended, normoactive bowel sounds, soft to palpation and non-tender Extremity normal to inspection, full ROM and no clubbing, cyanosis or edema Peripheral Pulses: Yes pulses 2+ throughout Skin no rashes or lesions noted Neuro oriented x3, CN's II-XII intact bilaterally and moves all extremities Sensorium / Orientation: awake and alert Psych affect normal Assessment & Plan Assessment/Plan (1) Acute respiratory failure with hypoxia: (2) Pneumonia due to COVID-19 virus: (3) Hypoxia: PLAN: #Acute hypoxic respiratory failure due to COVID 19 pneumonia * was on BIPAP overnight. now on AirVo * on decadron and baricitinib * pulmonology on board * lasix prn to maintain euvolemic status * critical care on board * on breathing treatment with bronchodilators * now out of isolation * #Elevated liver enzymes * AST, ALT and ALP have trended upwards slightly. * will trend. * #Schizophrenia and PTSD * stable. On bupriopion and sertraline * DVT prophylaxis: lovenox 40mg bid Charges/Coding Visit Charges Inpatient E&M: 79381 Subs Hosp L2
[2020-12-26] MEDS: BENZOCAINE/MENTHOL 1 LOZENGE MUCOUS MEM ×3 (16:34→23:37)
--- NOTE | 2020-12-26 17:14 | CASEMGMT ---
RN CM NOTE: VM received from nurse Lin @ [facility] requesting updated clinicals, which were faxed at this time to [phone]. Kaveh ALEJANDRA RN CM
[2020-12-26] MEDS: MELATONIN 10 MG TABLET PO (21:26)
[2020-12-26] MEDS: LORazepam 1 MG Tablet PO (21:26)
[2020-12-26] MEDS: Pravastatin 20 MG Tablet PO (21:26)
[2020-12-26] MEDS: guaiFENesin 10 ML UDC (200MG/10ML) PO (21:26)
[2020-12-26] MEDS: Doxazosin 4 MG Tablet 6 MG PO (21:29)
[2020-12-27] VITALS (10 sets, daily range): BP systolic 103–144; BP diastolic 61–84; PULSE 66–88; RESP 18–20; TEMP 36.6–36.9; O2SAT 92–94
--- NOTE | 2020-12-27 08:31 | PCM.PROGNOTE ---
Subjective: Coronavirus-pneumonia: I am recommending continued breathing treatments, supplemental O2 incentive spirometry and ambulation to a significant degree today. Desaturations to 83% were noted while taking a shower. I would utilize supplemental O2 at 3 to 5 L with ambulation and 1 to 2 L at rest to maintain saturation above 90%. I am recommending oral prednisone 20 mg a day on discharge for the least 2 weeks. The patient will be followed up in the office at 1 week's time. Also recommended on discharge is budesonide 500 mcg nebulized twice daily with albuterol, The patient will need a compressor and a nebulizer kit for discharge. The patient will need portable supplemental O2 at home he has a concentrator The patient will need oxygen blended into his BiPAP circuit, recommend 4 L at night I would discontinue Lasix now I would obtain a PA and lateral chest on discharge I recommend ambulating the patient today finishing up pulmonary toilet and discharge in the a.m. with supplemental O2 at 3-5 L to maintain saturation above 90%. The patient will follow up in the office within 1 week's time- - Physical Exam Vitals/I&O's: Vital Signs Temp Pulse Resp BP Pulse Ox 98.1 F 73 18 103/61 94 12/27/20 03:50 12/27/20 03:50 12/27/20 03:50 12/27/20 03:50 12/27/20 08:04 Oxygen Flow Rate (L/min) 3 Oxygen Delivery Method CPAP Weight: 126.3 kg Body Mass Index (BMI) 36.7 Intake and Output for Last 24 Hours 12/25/20 12/26/20 12/27/20 23:59 23:59 23:59 Intake Total 1000 / 1012 762 / 762 Output Total 3300 / 4900 3275 / 3275 Balance -2300 / -3888 -2513 / -2513 Microbiology Past 72 Hours 12/19/20 10:44 Blood Culture (Wb) - Anticubital Left Blood Culture - Final No growth in 5 days. 12/19/20 11:23 Blood Culture (Wb) - Left Hand Blood Culture - Final No growth in 5 days. Current Medications Acetaminophen (Acetaminophen 325 Mg Tablet) 650 mg PO Q6H PRN PRN PRN Reason: Pain Score 1-10/Temp > 100.7 F Last Admin: 12/26/20 08:13 Dose: 650 mg Documented by: Albuterol Sulfate (Albuterol Sulfate 8 Gm Inhaler (60 Puffs)) 2 puff INHALATION Q4H.RT COLIN Ascorbic Acid (Ascorbic Acid 500 Mg Tablet) 1,000 mg PO BIDCM [facility] Last Admin: 12/26/20 16:58 Dose: 1,000 mg Documented by: Baricitinib (Baricitinib 2 Mg Tablet) 4 mg PO DAILY [facility] Last Admin: 12/26/20 09:44 Dose: 4 mg Documented by: Bupropion HCl (Bupropion (Xl) 300 Mg Tablet.Xl) 300 mg PO DAILY [facility] Last Admin: 12/26/20 09:44 Dose: 300 mg Documented by: Dexamethasone Sodium Phosphate (Dexamethasone 10 Mg/Ml Vial) 6 mg IV DAILY [facility] Stop: 12/28/20 10:01 Last Admin: 12/26/20 09:43 Dose: 6 mg Documented by: Doxazosin Mesylate (Doxazosin 4 Mg Tablet) 6 mg PO QHS [facility] Last Admin: 12/26/20 21:29 Dose: 6 mg Documented by: Enoxaparin Sodium (Enoxaparin 40 Mg/0.4 Ml Syringe) 40 mg SC BID [facility] Last Admin: 12/26/20 21:30 Dose: 40 mg Documented by: Ergocalciferol (Ergocalciferol 1.25 Mg (50, 000 Unit) Capsule) 1.25 mg PO QMONTH [facility] Furosemide (Furosemide 20 Mg Tablet) 20 mg PO BIDLX [facility] Last Admin: 12/26/20 16:58 Dose: 20 mg Documented by: Guaifenesin (Guaifenesin 10 Ml Udc (200mg/10ml)) 10 ml PO Q4H PRN PRN PRN Reason: COUGH Last Admin: 12/26/20 21:26 Dose: 10 ml Documented by: Sodium Chloride () 250 mls @ 15 mls/hr IV .[id number] PRN PRN Reason: Saline Flush Sodium Chloride () 250 mls @ 15 mls/hr IV .[id number] PRN PRN Reason: Additional IVPB Infusion Lidocaine (Lidocaine 5% Patch) 2 patch TOPICAL DAILY [facility]; Protocol Last Admin: 12/26/20 09:45 Dose: 2 patch Documented by: Lorazepam (Lorazepam 1 Mg Tablet) 0.5 - 1 mg PO Q6H PRN PRN PRN Reason: ANXIETY/RESTLESSNESS/SLEEP Last Admin: 12/26/20 21:26 Dose: 1 mg Documented by: Lorazepam (Lorazepam 0.5 Mg Tablet) 0.5 - 1 mg PO Q6H PRN PRN PRN Reason: ANXIETY/RESTLESSNESS/SLEEP Last Admin: 12/25/20 22:32 Dose: 1 mg Documented by: Magnesium Chloride (Magnesium Chloride 64 Mg Delay Rel.Tablet) 128 mg PO DAILY [facility] Last Admin: 12/26/20 09:43 Dose: 128 mg Documented by: Melatonin (Melatonin 10 Mg Tablet) 10 mg PO QHS PRN PRN PRN Reason: INSOMNIA Last Admin: 12/26/20 21:26 Dose: 10 mg Documented by: Ondansetron HCl (Ondansetron 4 Mg/2 Ml Vial) 4 mg IV Q8H PRN PRN PRN Reason: NAUSEA/VOMITING Pravastatin Sodium (Pravastatin 20 Mg Tablet) 20 mg PO QHS [facility] Last Admin: 12/26/20 21:26 Dose: 20 mg Documented by: Rizatriptan Benzoate (Rizatriptan Benzoate 10 Mg Tablet) 10 mg PO DAILY PRN PRN Reason: MIGRAINE SYMPTOMS Senna/Docusate Sodium (Senna/Docusate Sodium 1 Tablet) 2 tablet PO BID PRN PRN Reason: Constipation Last Admin: 12/22/20 08:01 Dose: 2 tablet Documented by: Sertraline HCl (Sertraline 100 Mg Tablet) 200 mg PO DAILY [facility] Last Admin: 12/26/20 09:44 Dose: 200 mg Documented by: Sodium Chloride (0.9% Saline Lock 10 Ml Syringe) 10 - 40 ml IV UD PRN PRN Reason: SALINE FLUSH Last Admin: 12/25/20 10:31 Dose: 20 ml Documented by: Sodium Chloride (Sodium Chloride 0.65% 1 [place].Btl) 1 spray NASAL BID [facility] Last Admin: 12/26/20 21:27 Dose: 1 spray Documented by: Throat Lozenges (Benzocaine/Menthol 1 Lozenge) 1 lozenge MUCOUS MEM Q2H PRN PRN PRN Reason: SORE THROAT Last Admin: 12/26/20 23:37 Dose: 1 lozenge Documented by: Zinc Sulfate (Zinc Sulfate (50mg Elemental) 220 Mg Capsule) 220 mg PO TID [facility] Last Admin: 12/27/20 03:54 Dose: 220 mg Documented by: Patient Problems: Active and Suspected Problems (Last Updated 12/19/20 @ 15:[address] Coby Soliman MD) Acute respiratory failure with hypoxia (Acute) Pneumonia due to COVID-19 virus (Acute) Hypoxia (Acute) Medical Necessity - Tobacco Use Smoking Status: Former smoker Assessment/Plan All Active Problems (Last Updated 12/19/20 @ 15:[address] Coby Soliman MD) Acute respiratory failure with hypoxia (Acute) Pneumonia due to COVID-19 virus (Acute) Hypoxia (Acute)
--- NOTE | 2020-12-27 08:59 | PCS.PANDOC ---
PANDEMIC DOCUMENTATION INITIATED: Date: 09/23/2020 Time: 190
[2020-12-27] MEDS: Ascorbic Acid 500 MG Tablet 1000 MG PO ×2 (10:49→17:29)
[2020-12-27] MEDS: dexAMETHasone 10 MG/ML Vial 6 MG IV (10:49)
[2020-12-27] MEDS: Lidocaine 5% Patch 2 PATCH TOPICAL (10:51)
[2020-12-27] MEDS: Furosemide 20 MG Tablet PO ×2 (10:51→17:30)
[2020-12-27] MEDS: Enoxaparin 40 MG/0.4 ML Syringe SC ×2 (10:51→21:17)
[2020-12-27] MEDS: buPROPion (XL) 300 MG TABLET.XL PO (10:53)
--- NOTE | 2020-12-27 10:53 | PN.CC_ITS ---
Assessment & Plan Assessment/Plan (1) Acute respiratory failure with hypoxia: (2) Pneumonia due to COVID-19 virus: PLAN: RECOMMENDATIONS: 1. Continue Decadron (12/30/2020), baricitinib (01/02/2021) and bronchodilators. 2. Continue baseline psych and anxiety medications. 3. Wean oxygen as tolerated. 4. Encourage prone positioning, Acapella and incentive spirometer. 5. Given improving oxygen status, will sign off. Please call with any additional questions. IMPRESSIONS: 1. Acute hypoxic respiratory failure secondary to Covid pneumonia The patient is over 14 days from initial symptoms. The patient is improving from a respiratory perspective. Plan to continue supportive measures including supplemental oxygen to maintain saturations at or above 90%. Continue Decadron and baricitinib to complete treatment courses. Continue prophylactic Lovenox and IV diuretic therapy as tolerated by hemodynamics and renal function. 2. JB/unvaccinated status/hearing loss/depression/bipolar/PTSD/obesity Complicates care, management, recovery and prognosis. The patient is unable to tolerate baseline AutoPap at this time. This note was generated with [employer] dictation software. It may contain incorrect words, spelling, and punctuation that were not noted in checking the note before signing. Subjective Subjective The patient was seen and examined at the bedside this morning. Events from the last 24 hours have been reviewed. The patient is currently afebrile, hemodynamically stable and maintaining appropriate oxygen saturations on nasal cannula supplemental O2. The patient is currently documented to be overall net -1.6 L for the hospitalization. He remains on Lovenox, Decadron, baricitinib and Lasix. Objective Data Objective Data The patient's most recent lab work, culture data and imaging studies have all been personally reviewed. Vital Signs: Vital Signs Temp Pulse Resp BP Pulse Ox 98.1 F 73 18 103/61 94 12/27/20 03:50 12/27/20 03:50 12/27/20 03:50 12/27/20 03:50 12/27/20 08:04 Oxygen Flow Rate (L/min) 3 Oxygen Delivery Method CPAP Weight: 126.3 kg Body Mass Index (BMI) 36.7 Intake & Output: Intake and Output for Last 24 Hours 12/25/20 12/26/20 12/27/20 23:59 23:59 23:59 Intake Total 1000 / 1012 762 / 762 Output Total 3300 / 4900 3275 / 3275 Balance -2300 / -3888 -2513 / -2513 Lab / Micro Data Attestation: I reviewed the patient's lab results. Result Diagrams: 12/26/20 06:10 12/26/20 06:10 Micro: Microbiology 12/19/20 10:44 Blood Culture (Wb) - Anticubital Left Blood Culture - Final No growth in 5 days. 12/19/20 11:23 Blood Culture (Wb) - Left Hand Blood Culture - Final No growth in 5 days. 12/19/20 15:25 Sputum, Expectorated/Coughed Gram Stain - Final 12/19/20 15:25 Sputum, Expectorated/Coughed Respiratory Culture - Final Mixed normal respiratory annalee. No Streptococcus pneumoniae, beta-hemolytic Streptococcus or Staphylococcus aureus isolated. 12/19/20 19:00 Urine, Clean Catch Legionella Antigen - Final 12/19/20 19:00 Urine, Clean Catch Streptococcus pneumoniae Antigen (M - Final 12/19/20 15:30 Mucosa - Nasopharyngeal Respiratory Panel (PCR) - Final Physical Exam Const alert and no apparent distress General Appearance: cooperative Nutritional Appearance: obese HEENT normocephalic, head/scalp atraumatic and moist oral mucous membranes Eyes PERRL, EOMs intact bilaterally and conjunctivae normal Neck supple General: trachea midline Chest inspection of chest normal Resp Auscultation: diminished lung sounds; Negative for rales, rhonchi or wheezes Cardio regular rate and regular rhythm GI normal to inspection, nondistended, normoactive bowel sounds Extremity no clubbing, cyanosis or edema Skin no rashes or lesions noted Neuro CN's II-XII intact bilaterally, moves all extremities and no focal motor de ficits Psych cooperative and affect normal Charges/Coding Visit Charges Inpatient E&M: 40417 Subs Hosp L2
[2020-12-27] MEDS: Sertraline 100 MG Tablet 200 MG PO (10:54)
[2020-12-27] MEDS: Sodium Chloride 0.65% 1 SPRAY SPRAY.BTL NASAL ×2 (10:55→21:20)
[2020-12-27] MEDS: Magnesium Chloride 64 MG Delay Rel.Tablet 128 MG PO (10:55)
[2020-12-27] MEDS: Acetaminophen 325 MG Tablet 650 MG PO ×2 (10:59→17:30)
[2020-12-27] MEDS: BENZOCAINE/MENTHOL 1 LOZENGE MUCOUS MEM ×4 (11:00→23:22)
[2020-12-27] MEDS: guaiFENesin 10 ML UDC (200MG/10ML) PO ×3 (11:00→21:18)
--- NOTE | 2020-12-27 14:18 | PN.HOSP_ITS ---
Subjective Subjective Patient seen and examined. He is feeling much better today. He has been weaned down to 5 L of oxygen. Review of systems otherwise negative. He has otherwise remained hemodynamically stable. Objective Data Objective Data Vital Signs: Vital Signs Temp Pulse Resp BP Pulse Ox 97.9 F 74 20 H 137/81 H 93 12/27/20 10:00 12/27/20 10:00 12/27/20 10:00 12/27/20 10:00 12/27/20 10:00 Oxygen Flow Rate (L/min) 3 Oxygen Delivery Method Nasal Cannula Weight: 278 lb 7.101 oz Body Mass Index (BMI) 36.7 Intake & Output: Intake and Output for Last 24 Hours 12/25/20 12/26/20 12/27/20 23:59 23:59 23:59 Intake Total 1000 / 1012 762 / 762 Output Total 3300 / 4900 3275 / 3275 Balance -2300 / -3888 -2513 / -2513 Lab / Micro Data Result Diagrams: 12/26/20 06:10 12/26/20 06:10 Micro: Microbiology 12/19/20 10:44 Blood Culture (Wb) - Anticubital Left Blood Culture - Final No growth in 5 days. 12/19/20 11:23 Blood Culture (Wb) - Left Hand Blood Culture - Final No growth in 5 days. 12/19/20 15:25 Sputum, Expectorated/Coughed Gram Stain - Final 12/19/20 15:25 Sputum, Expectorated/Coughed Respiratory Culture - Final Mixed normal respiratory annalee. No Streptococcus pneumoniae, beta-hemolytic Streptococcus or Staphylococcus aureus isolated. 12/19/20 19:00 Urine, Clean Catch Legionella Antigen - Final 12/19/20 19:00 Urine, Clean Catch Streptococcus pneumoniae Antigen (M - Final 12/19/20 15:30 Mucosa - Nasopharyngeal Respiratory Panel (PCR) - Final Physical Exam Const alert, oriented x3 and no apparent distress Exam Limitations: no limitations HEENT head/scalp atraumatic and moist oral mucous membranes Head and Scalp: normocephalic Eyes PERRL, EOMs intact bilaterally and conjunctivae normal Neck no lymphadenopathy Resp Resp Narrative: diminished breath sounds bibasally, few crackles. On 5L of oxygen by nasal canula Cardio regular rate, regular rhythm, S1 normal heart sound, S2 normal heart sound and no murmurs GI normal to inspection, nondistended, normoactive bowel sounds, soft to palpation and non-tender Extremity normal to inspection, full ROM and no clubbing, cyanosis or edema Peripheral Pulses: Yes pulses 2+ throughout Skin no rashes or lesions noted Neuro oriented x3, CN's II-XII intact bilaterally and moves all extremities Sensorium / Orientation: awake and alert Psych affect normal Assessment & Plan Assessment/Plan (1) Acute respiratory failure with hypoxia: (2) Pneumonia due to COVID-19 virus: (3) Hypoxia: PLAN: #Acute hypoxic respiratory failure due to COVID 19 pneumonia * down to 5L of oxygen. * on decadron and baricitinib * pulmonology on board * lasix prn to maintain euvolemic status * critical care on board * on breathing treatment with bronchodilators * now out of isolation * #Elevated liver enzymes * stable. Will trend * #Schizophrenia and PTSD * stable. On bupriopion and sertraline * DVT prophylaxis: lovenox 40mg bid Disposition: for likely dc tomorrow if patient improves, on PO prednisone 20mg daily, as per discussion with his photo finish photographer Dr Corrigan. Charges/Coding Visit Charges Inpatient E&M: 21123 Subs Hosp L2
--- NOTE | 2020-12-27 16:22 | CASEMGMT ---
PAMELA CLIFFORD in to pt room, pt states he has an O2 concentrator that goes to 5L and portable tanks at home. Pt will have family bring in portable tank to go home on. Pt is aware that [facility]. He is agreeable to go home with the [place] [facility] and is aware that this RN DARRIN will follow [facility] and the [facility] Wednesday to get [facility].
[2020-12-27] MEDS: Pravastatin 20 MG Tablet PO (21:17)
[2020-12-27] MEDS: LORazepam 1 MG Tablet PO (21:17)
[2020-12-27] MEDS: Doxazosin 4 MG Tablet 6 MG PO (21:17)
[2020-12-27] MEDS: MELATONIN 10 MG TABLET PO (21:17)
[2020-12-28] VITALS (8 sets, daily range): BP systolic 115–141; BP diastolic 69–80; PULSE 66–90; RESP 18–20; TEMP 36.4–36.6; O2SAT 87–93
[2020-12-28] MEDS: Ascorbic Acid 500 MG Tablet 1000 MG PO ×2 (09:39→14:54)
[2020-12-28] MEDS: 0.9% Saline Lock 10 ML Syringe IV (09:40)
[2020-12-28] MEDS: dexAMETHasone 10 MG/ML Vial 6 MG IV (09:40)
[2020-12-28] MEDS: Enoxaparin 40 MG/0.4 ML Syringe SC (09:41)
[2020-12-28] MEDS: Lidocaine 5% Patch 2 PATCH TOPICAL (09:41)
[2020-12-28] MEDS: Furosemide 20 MG Tablet PO ×2 (09:41→14:54)
[2020-12-28] MEDS: Sertraline 100 MG Tablet 200 MG PO (09:42)
[2020-12-28] MEDS: buPROPion (XL) 300 MG TABLET.XL PO (09:42)
[2020-12-28] MEDS: Sodium Chloride 0.65% 1 SPRAY SPRAY.BTL NASAL (09:43)
[2020-12-28] MEDS: Magnesium Chloride 64 MG Delay Rel.Tablet 128 MG PO (09:44)
[2020-12-28] MEDS: Acetaminophen 325 MG Tablet 650 MG PO ×2 (09:45→14:53)
[2020-12-28] MEDS: BENZOCAINE/MENTHOL 1 LOZENGE MUCOUS MEM ×3 (09:46→16:52)
[2020-12-28] MEDS: guaiFENesin 10 ML UDC (200MG/10ML) PO ×2 (09:46→14:53)
--- NOTE | 2020-12-28 14:49 | DS.PCM_ITS ---
Providers Date of Admission: 12/19/20 Primary Care Physician: [facility] Consultations 12/19/20 15:09 Consult: Infectious Disease Routine Consulting Provider: Lobo Kahn Reason for Consult: COVID-19 pneumonia/Resp failure EMERGENT Consult: No Notified: Yes Date Notified: 12/19/20 Time Notified: 16:15 Method of Notification: Text 12/21/20 07:24 Consult: [employer] / Pulmonary Medicine Routine Consulting Provider: Sean Cook Reason for Consult: Resp failure/COVID-19 pneumonia EMERGENT Consult: No Notified: Yes Date Notified: 12/21/20 Time Notified: 07:28 Method of Notification: Verbal 12/25/20 09:20 Consult: [employer] / Pulmonary Medicine Routine Consulting Provider: Lobo Corrigan V Reason for Consult: Resp Failure/COVID-19 EMERGENT Consult: No Notified: Yes Date Notified: 12/19/20 Time Notified: 12:47 Method of Notification: Answering Service Comments:: d/c'd initial order in error Reason For Visit: RESP FAILURE/COVIDE-19 Diagnosis Discharge Diagnosis (1) Acute respiratory failure with hypoxia: Status: Acute Code(s): J96.01 - Acute respiratory failure with hypoxia (2) Pneumonia due to COVID-19 virus: Status: Acute Code(s): U07.1 - COVID-19; J12.82 - Pneumonia due to coronavirus disease 2019 (3) Hypoxia: Status: Acute Code(s): R09.02 - Hypoxemia Medications at Discharge Home Medications sertraline 200 mg PO DAILY 04/03/19 bupropion HCl 300 mg PO DAILY 12/19/20 ergocalciferol (vitamin D2) 1,250 mcg PO QMONTH 12/19/20 ibuprofen 800 mg PO BID PRN 12/19/20 magnesium oxide 450 mg PO DAILY 12/19/20 pravastatin 20 mg PO QHS 12/19/20 prazosin 8 mg PO QHS 12/19/20 riboflavin (vitamin B2) [Vitamin B-2] 100 mg PO DAILY 12/19/20 rizatriptan 10 mg PO DAILY PRN 12/19/20 prednisone 40 mg PO DAILY #10 tab 12/28/20 Hospital Course Operations None Procedures None Summary of Care Provided Minutes Spent on Discharge: 45 Hospital Course: Patient is a 45-year-old male was admitted through the ED on 12/19/2020 with a complaint of shortness of breath which have been going on for about 15 days. 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 Patient was unvaccinated. Covid test done was positive and his had also been sick. CT of the chest showed extensive bilateral airspace disease worse in the right hemithorax. Was admitted and managed for acute hypoxic respiratory failure due to COVID-19 pneumonia. ID and pulmonology were consulted. Patient was initially admitted to the ICU on account of worsening respiratory status. He required air Vo during the day and BiPAP at night. He was started on Decadron and baricitinib. Shortness of breath gradually improved and he was weaned off of airborne BiPAP onto oxygen by nasal cannula. He was gradually weaned down to 3 L of oxygen. With ambulation, patient required up to 5 L of oxygen. He was therefore discharged home on 12/28/2020 on 5 L of oxygen. He is to follow-up with his primary care doctor and cartridge loader in 1 to 2 weeks. Patient seen and examined prior to discharge. He had no complaints and felt well. Review of systems otherwise negative. Labs and vitals reviewed. Home medication reviewed and reconciled. Physical Exam Const alert, oriented x3 and no apparent distress General Appearance: cooperative, comfortable, well kempt and well developed Orientation / Consciousness: awake, oriented to person, oriented to place and oriented to time Exam Limitations: no limitations HEENT normocephalic, head/scalp atraumatic and moist oral mucous membranes Eyes PERRL, EOMs intact bilaterally and conjunctivae normal Neck no lymphadenopathy Resp Resp Narrative: diminished breath sounds bibasally, no wheezes or crackles. On 3L of oxygen by nasal canula Cardio regular rate, regular rhythm, S1 normal heart sound, S2 normal heart sound and no murmurs GI normal to inspection, nondistended, normoactive bowel sounds, soft to palpation and non-tender Extremity normal to inspection, full ROM and no clubbing, cyanosis or edema Skin no rashes or lesions noted Neuro oriented x3, CN's II-XII intact bilaterally and moves all extremities Sensorium / Orientation: awake and alert Psych affect normal Weight / BMI Weight Weight: 274 lb 4.081 oz Body Mass Index (BMI) 36.7 ABG / Lab / Microbiology Data Result Diagrams: 12/26/20 06:10 12/26/20 06:10 Microbiology: Microbiology 12/19/20 10:44 Blood Culture (Wb) - Anticubital Left Blood Culture - Final No growth in 5 days. 12/19/20 11:23 Blood Culture (Wb) - Left Hand Blood Culture - Final No growth in 5 days. 12/19/20 15:25 Sputum, Expectorated/Coughed Gram Stain - Final 12/19/20 15:25 Sputum, Expectorated/Coughed Respiratory Culture - Final Mixed normal respiratory annalee. No Streptococcus pneumoniae, beta-hemolytic Streptococcus or Staphylococcus aureus isolated. 12/19/20 19:00 Urine, Clean Catch Legionella Antigen - Final 12/19/20 19:00 Urine, Clean Catch Streptococcus pneumoniae Antigen (M - Final 12/19/20 15:30 Mucosa - Nasopharyngeal Respiratory Panel (PCR) - Final D/C Instructions Discharge Diet: Low fat / Low cholesterol Discharge Activity: Return to Normal Activity Weight Bearing Status: Weight bearing as tolerated Call your doctor if you observe: Fever of 101 or Higher, Shortness of breath, Dizziness, Swelling in the ankles, Chest pain, Increased palpitations (irregular heartbeat) and Calf discomfort Meaningful Use Info Meaningful Use Diagnoses (Choose all that apply): None applicable Discharge Plan Admission Admit Date/Time: 12/19/20 12:39 Primary Reason for Your Visit: acute hypoxic respiratory failure due to COVID Attending Provider: Camille Ruiz Primary Care Provider: [place] Consulting Providers: Lobo Kahn ; Sean Cook ; Lobo Corrigan V Instructions Patient Instructions: Coronavirus Disease 2019 (COVID-19): Overview Additional Instructions / Restrictions: use oxygen as needed for shortness of breath Discharge Orders/Prescriptions Prescriptions: New prednisone 20 mg tablet 40 mg PO DAILY Qty: 10 RF: 0 Continued sertraline 100 MG tablet 200 mg PO DAILY RF: 0 magnesium oxide 420 mg tablet 450 mg PO DAILY RF: 0 ibuprofen 800 mg tablet 800 mg PO BID PRN (Reason: Pain) RF: 0 riboflavin (vitamin B2) [Vitamin B-2] 100 mg tablet 100 mg PO DAILY RF: 0 rizatriptan 10 mg tablet,disintegrating 10 mg PO DAILY PRN (Reason: Migraine Headache) RF: 0 pravastatin 20 mg tablet 20 mg PO QHS RF: 0 ergocalciferol (vitamin D2) 1,250 mcg (50,000 unit) capsule 1,250 mcg PO QMONTH RF: 0 prazosin 2 mg capsule 8 mg PO QHS RF: 0 bupropion HCl 300 mg tablet extended release 24 hr 300 mg PO DAILY RF: 0 Discontinued dexamethasone 6 mg tablet 6 mg PO DAILY RF: 0 Referrals / Follow Up: Lobo Corrigan MD [STAFF PHYSICIAN] - Within 1 Week [facility] [Primary Care Provider] - Within 2 Weeks Disposition Disposition (needs filled in before D/C Order can be placed): Home, Self Care Charges/Coding Visit Charges Inpatient E&M: 31354 Disch Hosp
[2020-12-28] MEDS: LORazepam 0.5 MG Tablet PO (16:52)
--- NOTE | 2020-12-30 13:55 | CASEMGMT ---
Received tc back from Mariel who states that she will request medical records and then they will reach out to the vet and start the process for the O2. Notified pt of this.
== END 2020-12-28 18:00 | disposition home or self-care (01) | DRG 177 ==
LOC: ED 13:07 → ICU 13:46 → MS3 12-26 14:38
PROVIDERS: Internal Medicine Critical Care Medicine; Admitting Provider Internal Medicine; Emergency Provider Emergency Medicine; Visit Provider Student in an Organized Health Care Education/Training Program
DX: U07.1 COVID-19 (principal); J12.82 Pneumonia due to coronavirus disease 2019; J96.01 Acute respiratory failure with hypoxia; F31.9 Bipolar disorder, unspecified; F20.9 Schizophrenia, unspecified; F41.9 Anxiety disorder, unspecified; F43.10 Post-traumatic stress disorder, unspecified; G47.33 Obstructive sleep apnea (adult) (pediatric); H91.93 Unspecified hearing loss, bilateral; E66.9 Obesity, unspecified; Z68.36 Body mass index [BMI] 36.0-36.9, adult; Z97.4 Presence of external hearing-aid; Z79.01 Long term (current) use of anticoagulants; Z99.81 Dependence on supplemental oxygen; Z79.899 Other long term (current) drug therapy; Z87.891 Personal history of nicotine dependence
CPT/HCPCS: 71275; 80048; 80053; 83605; 84145; 84484; 85025; 86140; 87040; 87070; 87205; 87449; 87633; 87635; 93005; 94003; 94640; 94660; 94667; 94668; 94762; 97110; 97162; 97166; 97530; 97535; 97802; 99251; 99285; Q9967; U0005; A4216; G0463; J1940; U0003

== ENCOUNTER → 2021-01-15 15:00 | Outpatient (CLI) | payer OTHER, SELFPAY ==
--- NOTE | 2021-01-15 15:15 | CT_ITS ---
EXAM: CT ABDOMEN WITHOUT INTRAVENOUS CONTRAST CLINICAL INDICATION: ABD PAIN TECHNIQUE: Helically acquired images were obtained of the abdomen without intravenous contrast. This CT exam was performed using one or more of the following dose reduction techniques: automated exposure control, adjustment of the mA and/or kV according to patient size, and/or use of iterative reconstruction technique. This report was created using [employer] report generation technology. COMPARISON: None. FINDINGS: LOWER THORAX: Lower lobe pneumonia. No cardiomegaly. No significant pericardial effusion. LIVER: Unremarkable. Homogeneous. GALLBLADDER AND BILE DUCTS: Unremarkable. No calcified gallstones. No gallbladder distention or wall edema. No intra- or extrahepatic biliary ductal dilation. PANCREAS: Unremarkable. No focal cystic mass. SPLEEN: Unremarkable. Normal size without focal cystic or solid mass. ADRENALS: Unremarkable. No nodules. KIDNEYS AND URETERS: Unremarkable. Normal renal size and position. No hydronephrosis. STOMACH AND BOWEL: There is an umbilical hernia containing fat. There is no bowel involvement. There is no incarceration. There is no findings suggesting that this is causing a bowel obstruction. No focal inflammatory change. INTRAPERITONEAL SPACE: Unremarkable. No ascites or other fluid collection. No free air. BONES/JOINTS: Unremarkable. No suspicious lytic or blastic abnormality. SOFT TISSUES: See above. VASCULATURE: Unremarkable. Abdominal aorta is non-dilated. LYMPH NODES: No enlarged lymph nodes. OTHER FINDINGS: Vacuum disc phenomenon. CT/Abdomen without IV Contrast IMPRESSION: Lower lobe pneumonia. Electronically Signed: Mike Russo MD at 16:01 EST , Service support ,
== END ==
DX: R10.9 Unspecified abdominal pain (principal)
CPT/HCPCS: 74150

== ENCOUNTER → 2022-11-03 | Outpatient (CLI) | payer OTHER, SELFPAY ==
--- NOTE | 2022-11-03 19:14 | CT_ITS ---
STUDY: CT SOFT TISSUE NECK WITH CONTRAST REASON FOR EXAM: Male, 46 years old. SWOLLEN SENSATION IN NECK RADIATION DOSAGE (If Supplied By Facility): CTDIvol = ( 16.57 ) mGy, DLP = ( 517.58 ) mGycm TECHNIQUE: The patient was scanned in a multi-detector CT scanner. High resolution transaxial imaging was performed following intravenous administration of IV 75mL Isovue-370. Sagittal and coronal images were reconstructed. Individualized dose optimization techniques were used for this CT. COMPARISON: None. FINDINGS: Normal bilateral parotid glands. Normal bilateral outbound sales professional spaces. Normal bilateral parapharyngeal spaces. Normal bilateral carotid spaces. Normal bilateral sublingual and submandibular glands and spaces. Normal visualized nasopharynx. Normal retropharyngeal space. Normal perivertebral space. Normal visualized bilateral faucial tonsils. The visualized tongue, tongue base and oropharynx are normal. There are a few small infraclavicular and supraclavicular lymph nodes. There are several small symmetric-appearing Neck Soft Tissue lymph nodes right greater than left. There is no demonstrated solid or cystic mass lesion. There is no abnormal contrast enhancement. Normal epiglottis, bilateral vallecula and hypopharynx. The pre-epiglottic and paraglottic adipose spaces are normal. Normal visualized bilateral piriform sinuses, aryepiglottic folds, vocal cords, and arytenoid-cricoid articulations. Normal subglottic trachea. The right-sided thyroid lobe measures 5.1 x 1.7 cm the left side measures 5.4 x 1.8 cm. Normal visualized pulmonary apices. There is minimal mucoid thickening of the left side maxillary sinus. There is multilevel degenerative changes of the cervical spine. At C5-C6 there is a broad disc osteophyte mild neural foramina and mild central stenosis. CT/Soft Tissue Neck WITH Contrast IMPRESSION: No visualized dominant mass. Normal volume of the thyroid. Several small fairly symmetric appearing Neck Soft Tissue lymph nodes. Recommend correlation with findings recent infection or systemic inflammatory process. Degenerative change of the cervical spine. Minimal sinusitis. Electronically Signed: Yvette Solorio MD at 19:58 EDT ,
== END | disposition home or self-care (01) ==
LOC: CT 19:02
DX: R22.1 Localized swelling, mass and lump, neck (principal)
CPT/HCPCS: 70491; Q9967

== ENCOUNTER → 2023-01-07 | Outpatient (CLI) | payer OTHER, SELFPAY ==
--- NOTE | 2023-01-07 08:50 | FEM_PTH ---
PATIENT: WILMA AVILA LOC: [facility] U#:[id number] AGE/SX: 47/M ROOM: RE01/07/[address]: Dr. Bertrand Alejandre MD : 1975 BED: DIS: 01/07/2023 SPEC #: [id number] RECD: 01/07/23 15:23 STATUS: MIKAELA REFranco #: [id number] TEDDY: 01/07/23 08:[address]: Bertrand Alejandre DEPT: SURGICAL PATHOLOGY RECD BY: Eunice Rivera ENTERED: 01/08/23 09:30 SP TYPE: FEM HEAD OTHR DR: [facility] Tissues: Femoral region, NOS Procedures: Decalcification bone/plaque Surgery Specimen Level V HEADER OPERATION: Right direct anterior total hip arthroplasty PRE-OP DIAGNOSIS: Right hip osteoarthritis with avascular necrosis TISSUE SUBMITTED: Right hip MICROSCOPIC DIAGNOSIS Bone and tissue of right hip, total hip resection: Consistent with avascular necrosis. AM:prosper 01/13/2023 MICROSCOPIC DESCRIPTION Slides are reviewed. GROSS DESCRIPTION Received is one container labeled with the patient's name and designated bone and tissue right hip. The specimen consists of a distorted peterson femoral head measuring 5.5 x 5.0 x 5.0 cm. The cartilaginous cap appears to be collapsed in an area measuring 4.0 x 3.5 cm. Teacher Drama sections are submitted in two cassettes after decalcification. / AM:prosper 01/08/2023 TC:5 [facility]: [id number], [id number]
== END | disposition home or self-care (01) ==
LOC: LABSPEC 15:29
PROVIDERS: Referring Provider Specialist; Visit Provider Specialist
DX: M16.11 Unilateral primary osteoarthritis, right hip (principal)
CPT/HCPCS: 88307; 88311